=== PATIENT | female | born 1975 | race Hispanic/Latino ===

== ENCOUNTER → 2020-07-10 | Outpatient (CLI) | payer OTHER ==
[2020-07-10 15:45] LABS: BLOOD UREA NITROGEN 13 MG/DL (7-18); CREATININE FOR GFR 0.77 MG/DL (0.55-1.30); GLOMERULAR FILTRATION RATE > 60.0 (>58)
== END ==
LOC: M LAB 14:10
PROVIDERS: ATTEND Physician Assistant
DX: M54.5 Low back pain (principal)

== ENCOUNTER 2020-09-13 20:42 | Emergency (ER) | payer OTHER ==
[~2020-09-13] VITALS: Ht 157.5 cm; Wt 78.3 kg
--- OUTSIDE RECORDS SUMMARY | 2020-09-13 20:50 | CCD | Continuity of Care Document ---
Author Author Meagan AVALOS [place] Organization Unknown Address [address] [address] Phone [phone] Care Team Providers Care Concrete Mixer Truck Driver Name Role Phone Guzman Luna DO AUTM [phone] Problems Description No Information Available Social History Type Date Description Comments Sex Unknown ETOH Use Denies alcohol use Tobacco Use Start: Unknown End: Unknown Patient is a former smoker Allergies, Adverse Reactions, Alerts Description No Information Available Medications Active Medications SIG Qnty Indications Ordering Provide r Date Cyclobenzaprine HCL 10mg Tablets Take One Tablet By Mouth Three Times A Day DO Not Take If Driving Or Operating Equipment Unknown Duloxetine HCL 30mg Caps DR Part Take One Capsule By Mouth Every Day Unknown Ondansetron 4mg Tablets Dispers Dissolve One Tablet On Tongue Every 8 Hours as Needed For Migraine Or Nausea And Vomiting Unknown Verapamil HCL 80mg Tablets Take One Tablet By Mouth Twice A Day Unknown Sumatriptan Succinate 100mg Tablet s Take 1 Tablet By Mouth AT Onset Of Migraine May Repeat Dose In 1 Hour If Not Better Maximum Daily Dose 2 Tablets Daily And Max 4 Tablets Unknown Verapamil HCL 40mg Tablets Take 1 Tablet By Mouth AT Bedtime X 1 Week Then 1 Two Times A Day Unknown Pantoprazole Sodium 40mg Tablets D R Take One Tablet By Mouth Every Day Unknown History Medications Meloxicam 15mg Tablets 1 by mouth every day with food 30tabs M54.5 Tenzin Pabon MD 06/19/2020 - 08/06/2020 Meloxicam 7.5mg Tablets 1 by mouth every day with food 30tabs M54.5 Tenzin Pabon MD 05/08/2020 - 06/19/2020 Immunizations Description No Information Available Vital Signs Date Vital Result Comment 06/19/2020 10:33am Body Temperature 97.7 F 05/08/2020 8:52am Body Temperature 96.0 F Height 62 inches 5'2" Weight 171.00 lb BMI (Body Mass Index) 31.3 kg/m2 Results Test Acquired Date Facility Test Result H/L Range Note Laboratory test finding [facility] [address] [place] [address] [phone] Blood Urea Nitrogen 13 mg/dL Normal 7-18 Creatinine With GFR 07/10/2020 [facility] [address] [place] [address] [phone] - Creatinine For GFR 0.77 mg/dL Normal 0.55-1.30 Glomerular Filtration Rate > 60.0 Normal >58 1 1 Units are mL/min/1.73 m2 Chronic Kidney Disease Staging per NKF: Stage I & II GFR >=60 Normal to Mildly Decreased Stage III GFR 30-59 Moderately Decreased Stage IV GFR 15-29 Severely Decreased Stage V GFR <15 Very Little GFR Left ESRD GFR <15 on FINE GRADE BULLDOZER OPERATOR Procedures Date Code Description Status 06/28/2020 61567 Manual Therapy Each 15 Minutes C ompleted 06/28/2020 36976 Therapeutic Procedure, Each 15 M inutes Completed 06/22/2020 55290 Manual Therapy Each 15 Minutes C ompleted 06/22/2020 20826 Therapeutic Procedure, Each 15 M inutes Completed 06/22/2020 00221 Electrical Stimulati on Manual, Each 15 Min, Constant Attendance Completed 06/14/2020 69890 Manual Therapy Each 15 Minutes C ompleted 06/14/2020 77071 Therapeutic Procedure, Each 15 M inutes Completed 06/14/2020 36301 Electrical Stimulati on Manual, Each 15 Min, Constant Attendance Completed 06/01/2020 80446 Manual Therapy Each 15 Minutes C ompleted 06/01/2020 41067 Therapeutic Procedure, Each 15 M inutes Completed 06/01/2020 20432 Electrical Stimulati on Manual, Each 15 Min, Constant Attendance Completed 05/30/2020 86188 Physical Therapy Eval - Low Comp lexity Completed Medical Devices Description No Information Available Encounters Type Date Location Provider Dx Diagnosis Office Visit 08/06/2020 11:00a [place] M54.5 Low back pain M79.18 Myalgia, other site Office Visit 06/19/2020 10:15a [place] Russ M MELIDA Avalos M54.5 Low back pain M79.18 Myalgia, other site Office Visit 05/08/2020 8:30a [place] MELIDA Masters M54.5 Low back pain M79.18 Myalgia, other site Assessments Date Code Description Provider 08/06/2020 M54.5 Low back pain Russ Avalos, PA 08/06/2020 M79.18 Myalgia, other site Russ Rajat Davi madrgial, PA 06/28/2020 M54.5 Low back pain Danamarie Ortola no, MANAGER ENVIRONMENTAL 06/28/2020 M79.18 Myalgia, other site Danamarie Or tolano, MANAGER ENVIRONMENTAL 06/22/2020 M54.5 Low back pain Danamarie Ortola no, MANAGER ENVIRONMENTAL 06/22/2020 M79.18 Myalgia, other site Danamarie Or tolano, MANAGER ENVIRONMENTAL 06/19/2020 M54.5 Low back pain Russ M Bailey, PA 06/19/2020 M79.18 Myalgia, other site Russ Rajat Davi madrigal, PA 06/14/2020 M54.5 Low back pain Danamarie Ortola no, MANAGER ENVIRONMENTAL 06/01/2020 M54.5 Low back pain Jenifer Walters, MANAGER ENVIRONMENTAL 05/30/2020 M54.5 Low back pain Hillary Josephmelida , MSPT 05/08/2020 M54.5 Low back pain Russ M Bailey, PA 05/08/2020 M79.18 Myalgia, other site Russ Rajat Davi madrigal, PA Plan of Treatment 08/06/2020 - MELIDA Masters* M54.5 Low back pain* Follow up:* prn * M79.18 Myalgia, other site Functional Status Description No Information Available Mental Status Description No Information Available Referrals Refer to Reason for Referral Status Appt Date Terrance Ahmadi MD physical therapy evaluation approved [facility] ated [facility], [address] [place] [address] [phone] Terrance Ahmadi MD authorization for physical t herapy evaluation [phone] [phone] [id number], back. patient coming here. passed to PT Dept. Created [address] [place] [address], [address] [place], [place] [id number] [phone] Terrance Ahmadi MD authorization for physical t herapy Low Back. PAtient coming here. Created [address] [place] [address], [address] [place] [address] [phone]
--- OUTSIDE RECORDS SUMMARY | 2020-09-13 20:51 | CCD | Continuity of Care Document ---
Author Author Meagan WORTHINGTON [facility] Organization Unknown Address 3 [facility] 3 [place] [address] Phone [phone] Care Team Providers Care Academic Affairs Dean Name Role Phone [facility] Orthopedics - Orthopedic/Phys/Osteo AUTM [phone] Donald Shaver AUTM [phone] Problems Description No Information Available Social History Type Date Description Comments Sex Unknown Tobacco Use Start: Unknown End: Unknown Patient is a former smoker Allergies, Adverse Reactions, Alerts Description No Known Drug Allergies Medications Active Medications SIG Qnty Indications Ordering Provide r Date Protonix 40mg Tablets DR 1 by mouth every day 30tabs [facility] [address] Part 1 by mouth every day 30caps Maria Del Rosario Wor[facility]ton [facility] 0 Meloxicam 15mg Tablets 1 by mouth every day [facility] Orthopedics Verapamil HCL 80mg Tablets 1 by mouth bid Donald Shaver History Medications Omeprazole 40mg Capsules DR 1 by mouth every day 30caps Maria Del Rosario [place]ton FNP- 0 - 05/21/[address] 1 by mouth every day caps Maria Del Rosario Worthington [facility] 0 - 05/21/2020 Cyclobenzaprine HCL 10mg Tablets take one tablet by mouth three times a day. do not take if driving or operating equipment 30tabs Maria Del Rosario [place] FNP- 0 - 04/26/2020 Immunizations Description No Information Available Vital Signs Date Vital Result Comment 07/02/2020 10:49am BP Systolic 136 mmHg BP Diastolic 86 mmHg Body Temperature 97.7 F Heart Rate 98 /min Respiratory Rate 18 /min Height 62 inches 5'2" Weight 168.00 lb [place] Body Weight 110 lb BMI (Body Mass Index) 30.7 kg/m2 O2 % BldC Oximetry 98 % 05/21/2020 12:13pm BP Systolic 146 mmHg BP Diastolic 90 mmHg Body Temperature 98.4 F Heart Rate 90 /min Respiratory Rate 16 /min Height 62 inches 5'2" Weight 171.00 lb [place] Body Weight 110 lb BMI (Body Mass Index) 31.3 kg/m2 O2 % BldC Oximetry 98 % Results Test Acquired Date Facility Test Result H/L Range Note Laboratory test finding 07/10/[address] [facility] (Interface) [phone] Blood Urea Nitrogen 13 mg/dL Normal 7-18 Creatinine With GFR 07/10/2020 [facility] (I nterface) [phone] Creatinine For GFR 0.77 mg/dL Normal 0.55-1.30 Glomerular Filtration Rate > 60.0 Normal >58 1 1 Units are mL/min/1.73 m2 Chronic Kidney Disease Staging per NKF: Stage I & II GFR >=60 Normal to Mildly Decreased Stage III GFR 30-59 Moderately Decreased Stage IV GFR 15-29 Severely Decreased Stage V GFR <15 Very Little GFR Left ESRD GFR <15 on APPLIANCE SERVICER Procedures Description No Information Available Medical Devices Description No Information Available Encounters Type Date Location Provider Dx Diagnosis Office Visit 07/02/2020 10:40a [place] [facility] Maria Del Rosario Worthington FNP-B C R03.0 Elevated blood-pressure reading, w/o diagnosis of htn G47.00 Insomnia, unspecified F32.9 Major depressive disorder, s ghazal episode, unspecified F41.9 Anxiety disorder, unspecifie d G43.909 Migraine, unsp, not intracta ble, without status migrainosus M54.5 Low back pain K21.9 Gastro-esophageal reflux dis ease without esophagitis R10.13 Epigastric pain Office Visit 05/21/2020 10:45a [place] [facility] Maria Del Rosario Worthington FNP-B C G43.909 Migraine, unsp, not intractable, without status migrainosus F32.9 Major depressive disorder, s ghazal episode, unspecified F41.9 Anxiety disorder, unspecifie d M54.5 Low back pain R03.0 Elevated blood-pressure read ing, w/o diagnosis of htn G47.00 Insomnia, unspecified Office Visit 04/26/2020 10:45a [place] [facility] Rounds, Maria Del Rosario EarlCHINMAYP-B C G43.909 Migraine, unsp, not intractable, without status migrainosus F32.9 Major depressive disorder, s ghazal episode, unspecified F41.9 Anxiety disorder, unspecifie d M54.5 Low back pain Office Visit 04/13/2020 11:30a [place] [facility] Rounds, Maria Del Rosario EarlCHINMAYP-B C G43.909 Migraine, unsp, not intractable, without status migrainosus F32.9 Major depressive disorder, s ghazal episode, unspecified F41.9 Anxiety disorder, unspecifie d M54.5 Low back pain R03.0 Elevated blood-pressure read ing, w/o diagnosis of htn Assessments Date Code Description Provider 07/02/2020 R03.0 Elevated blood-press ure reading, without diagnosis of hypertension Maria Del Rosario Worthington [facility] 07/02/2020 G47.00 Insomnia, unspecified ElinYon karthik Earl [facility] 07/02/2020 F32.9 Major depressive disorder, singl e episode, unspecified Elin Maria Del Rosario Earl [facility] 07/02/2020 F41.9 Anxiety disorder, unspecified Ro unds Maria Del Rosario Earl [facility] 07/02/2020 G43.909 Migraine, unspecifie d, not intractable, without status migrainosus Elin Maria Del Rosario Rajat [facility] 07/02/2020 M54.5 Low back pain Elin Maria Del Rosario Earl [facility] 07/02/2020 K21.9 Gastro-esophageal reflux disease without esophagitis Elin Maria Del Rosario M, [facility] 07/02/2020 R10.13 Epigastric pain Elin Maria Del Rosario Rajat [facility] 05/21/2020 G43.909 Migraine, unspecifie d, not intractable, without status migrainosus Elin Maria Del Rosario Rajat [facility] 05/21/2020 F32.9 Major depressive disorder, singl e episode, unspecified Elin Maria Del Rosario Earl, [facility] 05/21/2020 F41.9 Anxiety disorder, unspecified Ro unds, Maria Del Rosario Earl, [facility] 05/21/2020 M54.5 Low back pain Maria Del Rosario Worthington, [facility] 05/21/2020 R03.0 Elevated blood-press ure reading, without diagnosis of hypertension Maria Del Rosario Wor[place], [facility] 05/21/2020 G47.00 Insomnia, unspecified Yon Worthington, [facility] 04/26/2020 G43.909 Migraine, unspecifie d, not intractable, without status migrainosus Maria Del Rosario Wor[place]ton, [facility] 04/26/2020 F32.9 Major depressive disorder, singl e episode, unspecified Maria Del Rosario Wor[place]ton, [facility] 04/26/2020 F41.9 Anxiety disorder, unspecified Ro unds, Maria Del Rosario Earl, [facility] 04/26/2020 M54.5 Low back pain Maria Del Rosario Worthington [facility] 04/13/2020 G43.909 Migraine, unspecifie d, not intractable, without status migrainosus Maria Del Rosario Worthington [facility] 04/13/2020 F32.9 Major depressive disorder, singl e episode, unspecified Maria Del Rosario Worthington [facility] 04/13/2020 F41.9 Anxiety disorder, unspecified Ro unds, Maria Del Rosario Earl, [facility] 04/13/2020 M54.5 Low back pain Maria Del Rosario Wor[place], [facility] 04/13/2020 R03.0 Elevated blood-press ure reading, without diagnosis of hypertension Maria Del Rosario Worthington [facility] Plan of Treatment Future Appointment(s):* 10/08/2020 1:00 pm - Maria Del Rosario Worthington [facility]- at [place] [facility] Functional Status Description No Information Available Mental Status Description No Information Available Referrals Refer to Dr Reason for Referral Status Appt Date Rogelio Gee M.D. epigastric discomfort and GERD Sent [address] [facility] [address] [place], [place] [address] [phone] Sugar Shaver M.D. migraines Sent 05/10/2020 [facility] Neurology [address] [place] [address] [phone] [facility] Orthopedics persistent back pain Sent [address] [facility] [address] [place] [address] [phone] [facility] anxiety and depression Sent [address] [place], [place] [address] [phone]
--- OUTSIDE RECORDS SUMMARY | 2020-09-13 20:51 | CCD | Continuity of Care Document ---
Author Author Meagan REED Organization Unknown Address [address] [place] [address] Phone [phone] Care Team Providers Care Laborer Carpentry Dock Name Role Phone Guzman Luna DO AUTM [phone] Problems Description No Information Available Social History Type Date Description Comments Sex Unknown ETOH Use Denies alcohol use Tobacco Use Start: Unknown End: Unknown Patient is a former smoker Allergies, Adverse Reactions, Alerts Description No Information Available Medications Active Medications SIG Qnty Indications Ordering Provide r Date Meloxicam 15mg Tablets 1 by mouth every day with food 30tabs M54.5 Tenzin Pabon MD 06/19/2020 Cyclobenzaprine HCL 10mg Tablets Take One Tablet By Mouth Three Times A Day DO Not Take If Driving Or Operating Equipment Unknown Duloxetine HCL 30mg Caps DR Part Take One Capsule By Mouth Every Day Unknown History Medications Meloxicam 7.5mg Tablets 1 by mouth every day with food 30tabs M54.5 Tenzin Pabon MD 05/08/2020 - 06/19/2020 Immunizations Description No Information Available Vital Signs Date Vital Result Comment 06/19/2020 10:33am Body Temperature 97.7 F 05/08/2020 8:52am Body Temperature 96.0 F Height 62 inches 5'2" Weight 171.00 lb BMI (Body Mass Index) 31.3 kg/m2 Results Description No Information Available Procedures Date Code Description Status 06/28/2020 68998 Manual Therapy Each 15 Minutes C ompleted 06/28/2020 56302 Therapeutic Procedure, Each 15 M inutes Completed 06/22/2020 50897 Manual Therapy Each 15 Minutes C ompleted 06/22/2020 38512 Therapeutic Procedure, Each 15 M inutes Completed 06/22/2020 00012 Electrical Stimulati on Manual, Each 15 Min, Constant Attendance Completed 06/14/2020 93127 Manual Therapy Each 15 Minutes C ompleted 06/14/2020 05852 Therapeutic Procedure, Each 15 M inutes Completed 06/14/2020 73592 Electrical Stimulati on Manual, Each 15 Min, Constant Attendance Completed 06/01/2020 98880 Manual Therapy Each 15 Minutes C ompleted 06/01/2020 77064 Therapeutic Procedure, Each 15 M inutes Completed 06/01/2020 56930 Electrical Stimulati on Manual, Each 15 Min, Constant Attendance Completed 05/30/2020 99186 Physical Therapy Eval - Low Comp lexity Completed Medical Devices Description No Information Available Encounters Type Date Location Provider Dx Diagnosis Office Visit 06/19/2020 10:[place]a [place] M54.5 Low back pain M79.18 Myalgia, other site Office Visit 05/08/2020 8:30a [place] M54.5 Low back pain M79.18 Myalgia, other site Assessments Date Code Description Provider 06/28/2020 M54.5 Low back pain Danamarie Ortola no, LIGHTING DESIGNER 06/28/2020 M79.18 Myalgia, other site Danamarie Or tolano, LIGHTING DESIGNER 06/22/2020 M54.5 Low back pain Danamarie Ortola no, LIGHTING DESIGNER 06/22/2020 M79.18 Myalgia, other site Danamarie Or tolano, LIGHTING DESIGNER 06/19/2020 M54.5 Low back pain SHERIE Masters 06/19/2020 M79.18 Myalgia, other site Russ madrigal PA 06/14/2020 M54.5 Low back pain Danamarie Ortola no, LIGHTING DESIGNER 06/01/2020 M54.5 Low back pain Jenifer Romeo, LIGHTING DESIGNER 05/30/2020 M54.5 Low back pain Hillary Rangel , MSPT 05/08/2020 M54.5 Low back pain SHERIE Masters 05/08/2020 M79.18 Myalgia, other site Russ madrigal PA Plan of Treatment Future Appointment(s):* 08/06/2020 11:00 am - SHERIE Masters at [place] 06/19/2020 - SHERIE Masters* M54.5 Low back pain* New Medication:* Meloxicam 15 mg - 1 by mouth every day with food * New Labs:* Blood Urea Nitrogen, Ordered: 06/19/20 * Creatinine With GFR, Ordered: 06/19/20 * Follow up:* [facility]med recheck * M79.18 Myalgia, other site Functional Status Description No Information Available Mental Status Description No Information Available Referrals Refer to Reason for Referral Status Appt Date Terrance Ahmadi MD authorization for physical t herapy evaluation [phone], back. patient coming here. passed to PT Dept. Created [address] [place] [address] [phone] Terrance Ahmadi MD authorization for physical t herapy Low Back. PAtient coming here. Created [address] [place] [address] [phone]
--- OUTSIDE RECORDS SUMMARY | 2020-09-13 20:51 | CCD | Continuity of Care Document ---
Author Author Meagan CANDELARIO ID Organization Unknown Address [address] [place] [address] Phone [phone] Care Team Providers Care District Plant Engineer Name Role Phone Guzman Luna DO AUTM [phone] Problems Description No Information Available Social History [...] Information Available Procedures Date Code Description Status 06/14/2020 33685 Manual Therapy Each 15 Minutes C ompleted 06/14/2020 74437 Therapeutic Procedure, Each 15 M inutes Completed 06/14/2020 77941 Electrical Stimulati on Manual, Each 15 Min, Constant Attendance Completed 06/01/2020 94457 Manual Therapy Each 15 Minutes C ompleted 06/01/2020 37985 Therapeutic Procedure, Each 15 M inutes Completed 06/01/2020 44366 Electrical Stimulati on Manual, Each 15 Min, Constant Attendance Completed 05/30/2020 42610 Physical Therapy Eval - Low Comp lexity Completed Medical Devices Description No Information Available Encounters Type Date Location Provider Dx Diagnosis Office Visit 06/19/2020 10:15a [place] SHERIE Masters M54.5 Low back pain M79.18 Myalgia, other site Office Visit 05/08/2020 8:30a [place] SHERIE Masters M54.5 Low back pain M79.18 Myalgia, other site Assessments Date Code Description Provider 06/19/2020 M54.5 Low back pain SHERIE Masters 06/19/2020 M79.18 Myalgia, other site SHERIE Cano 06/14/2020 M54.5 Low back pain Brodie oates, PUBLISHER ASSISTANT 06/01/2020 M54.5 Low back pain Jenifer Byrnese, PUBLISHER ASSISTANT 05/30/2020 M54.5 Low back pain Hillary MJill Rangel , MSPT 05/08/2020 M54.5 Low back pain SHERIE Masters 05/08/2020 M79.18 Myalgia, other site SHERIE Cano Plan of Treatment Future Appointment(s):* 08/06/2020 11:00 am - SHERIE Masters at [place] * 06/22/2020 11:00 am - Brodie Sharp PTA at Physical Therapy 06/19/2020 - SHERIE Masters* M54.5 Low back pain* New Medication:* Meloxicam 15 mg - 1 by mouth every day with food * New Labs:* Blood Urea Nitrogen, Ordered: 06/19/20 * Creatinine With GFR, Ordered: 06/19/20 * Follow up:* in 6 weeks with [facility] for back/med recheck * M79.18 Myalgia, other site Functional Status Description No Information Available Mental Status Description No Information Available Referrals Refer to Dr Reason for Referral Status Appt Date Terrance Ahmadi MD authorization for physical t herapy evaluation [phone], back. patient coming here. passed to PT Dept. AC Created [address] [place] [address], [address] [place] [address] [phone] Terrance Ahmadi MD authorization for physical t herapy Low Back. PAtient coming here. AC Created [address] [place] [address], [address] [address] [phone]
--- OUTSIDE RECORDS SUMMARY | 2020-09-13 20:51 | CCD | Continuity of Care Document ---
Author Author Meagan CANDELARIO [place] Organization Unknown Address [address] [address] Phone [phone] Care Team Providers Care Candle Molder Name Role Phone Guzman Luna DO AUTM [phone] Problems Description No Information Available Social History [...] H/L Range Note Laboratory test finding 07[facility] [address] [place] [address] [phone] Blood Urea Nitrogen 13 mg/dL Normal 7-18 Creatinine With GFR 07/10/2020 [facility] [address] [place] [address] [phone] Creatinine For GFR 0.77 mg/dL Normal 0.55-1.30 Glomerular Filtration Rate > 60.0 Normal >58 1 1 Units are mL/min/1.73 m2 Chronic Kidney Disease Staging per NKF: Stage I & II GFR >=60 Normal to Mildly Decreased Stage III GFR 30-59 Moderately Decreased Stage IV GFR 15-29 Severely Decreased Stage V GFR <15 Very Little GFR Left ESRD GFR <15 on ASTROPHYSICS TEACHER Procedures Date Code Description Status 06/28/2020 60464 Manual Therapy Each 15 Minutes C ompleted 06/28/2020 58780 Therapeutic Procedure, Each 15 M inutes Completed 06/22/2020 40910 Manual Therapy Each 15 Minutes C ompleted 06/22/2020 13543 Therapeutic Procedure, Each 15 M inutes Completed 06/22/2020 97557 Electrical Stimulati on Manual, Each 15 Min, Constant Attendance Completed 06/14/2020 25034 Manual Therapy Each 15 Minutes C ompleted 06/14/2020 62716 Therapeutic Procedure, Each 15 M inutes Completed 06/14/2020 39254 Electrical Stimulati on Manual, Each 15 Min, Constant Attendance Completed 06/01/2020 47429 Manual Therapy Each 15 Minutes C ompleted 06/01/2020 44488 Therapeutic Procedure, Each 15 M inutes Completed 06/01/2020 61883 Electrical Stimulati on Manual, Each 15 Min, Constant Attendance Completed 05/30/2020 61461 Physical Therapy Eval - Low Comp lexity Completed Medical Devices Description No Information Available Encounters Type Date Location Provider Dx Diagnosis Office Visit 06/19/2020 10:15a [place] SHERIE Masters M54.5 Low back pain M79.18 Myalgia, other site Office Visit 05/08/2020 8:30a [place] SHERIE Masters M54.5 Low back pain M79.18 Myalgia, other site Assessments Date Code Description Provider 06/28/2020 M54.5 Low back pain Danamarie Ortola no, SITE SUPERVISING TECHNICAL OPERATOR 06/28/2020 M79.18 Myalgia, other site Danamarie Or tolano, SITE SUPERVISING TECHNICAL OPERATOR 06/22/2020 M54.5 Low back pain Danamarie Ortola no, SITE SUPERVISING TECHNICAL OPERATOR 06/22/2020 M79.18 Myalgia, other site Danamarie Or tolano, SITE SUPERVISING TECHNICAL OPERATOR 06/19/2020 M54.5 Low back pain SHERIE Masters 06/19/2020 M79.18 Myalgia, other site SHERIE Cano 06/14/2020 M54.5 Low back pain Brodie oates, SITE SUPERVISING TECHNICAL OPERATOR 06/01/2020 M54.5 Low back pain Jenifer Walters, SITE SUPERVISING TECHNICAL OPERATOR 05/30/2020 M54.5 Low back pain Hillary Rangel , MSPT 05/08/2020 M54.5 Low back pain SHERIE Masters 05/08/2020 M79.18 Myalgia, other site SHERIE Cano Plan of Treatment Future Appointment(s):* 08/06/2020 11:00 am - SHERIE Masters at [place] Functional Status Description No Information Available Mental Status Description No Information Available Referrals Refer to Dr Reason for Referral Status Appt Date Terrance Ahmadi MD physical therapy evaluation approved nlg Cre ated [address] [place] [address] [phone] Terrance Ahmadi MD authorization for physical t herapy evaluation [phone], back. patient coming here. passed to PT Dept. AC Created [address] [place] [address] [phone] Terrance Ahmadi MD authorization for physical t herapy Low Back. PAtient coming here. AC Created [address] [place] [address] [phone]
--- OUTSIDE RECORDS SUMMARY | 2020-09-13 20:51 | CCD | Continuity of Care Document ---
Author Author Meagan [facility] Organization Unknown Address 3 [facility] [address] [place] [address] Phone [phone] Care Team Providers Care Forensic Engineer Name Role Phone [facility] - Orthopedic/Phys/Osteo AUTM [phone] Donald Shaver AUTM [phone] Problems Description No Information Available Social History Type Date Description Comments Sex Unknown Tobacco Use Start: Unknown End: Unknown Patient is a former smoker Allergies, Adverse Reactions, Alerts Description No Known Drug Allergies Medications Active Medications SIG Qnty Indications Ordering Provide r Date Protonix 40mg Tablets DR 1 by mouth every day 30tabs Maria Del [facility]ario [place] [facility] [address] Caps [address] Part 1 by mouth every day 30caps [facility] Meloxicam 15mg Tablets 1 by mouth every day [facility] Verapamil HCL 80mg Tablets 1 by mouth bid Donald Shaver History Medications Omeprazole 40mg Capsules DR 1 by mouth every day 30caps Maria Del Rosario Wor[place]ton FNP- 0 - 05/21/[address] 1 by mouth every day caps Maria Del Rosario Worthington [facility] 0 - 05/21/2020 Cyclobenzaprine HCL 10mg Tablets [...] Height 62 inches 5'2" Weight 168.00 lb Stites Body Weight 110 lb BMI (Body Mass Index) 30.7 kg/m2 O2 % BldC Oximetry 98 % 05/21/2020 12:13pm BP Systolic 146 mmHg BP Diastolic 90 mmHg Body Temperature 98.4 F Heart Rate 90 /min Respiratory Rate 16 /min Height 62 inches 5'2" Weight 171.00 lb Stites Body Weight 110 lb BMI (Body Mass Index) 31.3 kg/m2 O2 % BldC Oximetry 98 % Results Description No Information Available Procedures Description No Information Available Medical Devices Description No Information Available Encounters Type Date Location Provider Dx Diagnosis Office Visit 07/02/2020 10:40a [place] Office RoundsMaria Del Rosario FNP-B C R03.0 Elevated blood-pressure reading, w/o diagnosis of htn G47.00 Insomnia, unspecified F32.9 Major depressive disorder, s ghazal episode, unspecified F41.9 Anxiety disorder, unspecifie d G43.909 Migraine, unsp, not intracta ble, without status migrainosus M54.5 Low back pain Office Visit 05/21/2020 10:45a [place] Office RoundsMaria Del Rosario FNP-B C G43.909 Migraine, unsp, not intractable, without status migrainosus F32.9 Major depressive disorder, s ghazal episode, unspecified F41.9 Anxiety disorder, unspecifie d M54.5 Low back pain R03.0 Elevated blood-pressure read ing, w/o diagnosis of htn G47.00 Insomnia, unspecified Office Visit 04/26/2020 10:45a [place] Office RoundsMaria Del Rosario FNP-B C G43.909 Migraine, unsp, not intractable, without status migrainosus F32.9 Major depressive disorder, s ghazal episode, unspecified F41.9 Anxiety disorder, unspecifie d M54.5 Low back pain Office Visit 04/13/2020 11:30a [place] Office RoundsMaria Del Rosario FNP-B C G43.909 Migraine, unsp, not intractable, without status migrainosus F32.9 Major depressive disorder, s ghazal episode, unspecified F41.9 Anxiety disorder, unspecifie d M54.5 Low back pain R03.0 Elevated blood-pressure read ing, w/o diagnosis of htn Assessments Date Code Description Provider 07/02/2020 R03.0 Elevated blood-press ure reading, without diagnosis of hypertension Maria Del Rosario [place], [facility] 07/02/2020 G47.00 Insomnia, unspecified Rounds, Yon Earl, [facility] 07/02/2020 F32.9 Major depressive disorder, singl e episode, unspecified Maria Del Rosario [place], [facility] 07/02/2020 F41.9 Anxiety disorder, unspecified Ro unds, Maria Del Rosario Earl, [facility] 07/02/2020 G43.909 Migraine, unspecifie d, not intractable, without status migrainosus Maria Del Rosario [place], [facility] 07/02/2020 M54.5 Low back pain Elin, Maria Del Rosario Earl, [facility] 05/21/2020 G43.909 Migraine, unspecifie d, not intractable, without status migrainosus Maria Del Rosario [place], [facility] 05/21/2020 F32.9 Major depressive disorder, singl e episode, unspecified Maria Del Rosario [place], [facility] 05/21/2020 F41.9 Anxiety disorder, unspecified Ro unds, Maria Del Rosario Earl, [facility] 05/21/2020 M54.5 Low back pain RoundsMaria Del Rosario, [facility] 05/21/2020 R03.0 Elevated blood-press ure reading, without diagnosis of hypertension Maria Del Rosario [place], [facility] 05/21/2020 G47.00 Insomnia, unspecified Elin, Yon Earl, [facility] 04/26/2020 G43.909 Migraine, unspecifie d, not intractable, without status migrainosus Maria Del Rosario [place], [facility] 04/26/2020 F32.9 Major depressive disorder, singl e episode, unspecified Elin, Maria Del Rosario Earl, [facility] 04/26/2020 F41.9 Anxiety disorder, unspecified Ro unds, Maria Del Rosario Earl, [facility] 04/26/2020 M54.5 Low back pain Rounds, Maria Del Rosario Earl, [facility] 04/13/2020 G43.909 Migraine, unspecifie d, not intractable, without status migrainosus Maria Del Rosario [place] FNP-BC 04/13/2020 F32.9 Major depressive disorder, singl e episode, unspecified Maria Del Rosario Wor[place] FNP-BC 04/13/2020 F41.9 Anxiety disorder, unspecified Ro undMaria Del Rosario olivas FNP-BC 04/13/2020 M54.5 Low back pain Maria Del Rosario Worthing[place] FNP-BC 04/13/2020 R03.0 Elevated blood-press ure reading, without diagnosis of hypertension Maria Del Rosario [place] FNP-BC Plan of Treatment Future Appointment(s):* 10/08/2020 1:00 pm - Maria Del Rosario [place] FNP-BC at [facility] Functional Status Description No Information Available Mental Status Description No Information Available Referrals Refer to Reason for Referral Status Appt Date Sugar Shaver M.D. migraines Sent 05/10/2020 [facility] [address] [place] [address] [phone] [facility] Orth[facility] persistent back pain Sent [address] [place] [address] [phone] [facility] Health anxiety and depression Sent [facility] [place] [address] [phone]
--- OUTSIDE RECORDS SUMMARY | 2020-09-13 20:51 | CCD | Continuity of Care Document ---
Author Author Meagan [facility] Organization Unknown Address [address] [place] [address], [facility] [address] [place] [address] Phone [phone] Care Team Providers Care Exhibit Carpenter Name Role Phone Guzman LunaM [phone] Problems Description No Information Available Social History Type Date Description Comments Sex Unknown ETOH Use Denies alcohol use Tobacco Use Start: Unknown End: Unknown Patient is a former smoker Allergies, Adverse Reactions, Alerts Description No Information Available Medications Active Medications SIG Qnty Indications Ordering Provide r Date Meloxicam 7.5mg Tablets 1 by mouth every day with food 30tabs M54.5 Tenzin Pabon MD 05/08/2020 Cyclobenzaprine HCL 10mg Tablets Take One Tablet By Mouth Three Times A Day DO Not Take If Driving Or Operating Equipment Unknown Duloxetine HCL 30mg Caps DR Part Take One Capsule By Mouth Every Day Unknown Immunizations Description No Information Available Vital Signs Date Vital Result Comment 05/08/2020 8:52am Body Temperature 96.0 F Height 62 inches 5'2" Weight 171.00 lb BMI (Body Mass Index) 31.3 kg/m2 Results Description No Information Available Procedures Date Code Description Status 06/14/2020 11040 Manual Therapy Each 15 Minutes C ompleted 06/14/2020 41946 Therapeutic Procedure, Each 15 M inutes Completed 06/14/2020 17118 Electrical Stimulati on Manual, Each 15 Min, Constant Attendance Completed 06/01/2020 95590 Manual Therapy Each 15 Minutes C ompleted 06/01/2020 79736 Therapeutic Procedure, Each 15 M inutes Completed 06/01/2020 03731 Electrical Stimulati on Manual, Each 15 Min, Constant Attendance Completed 05/30/2020 08604 Physical Therapy Eval - Low Comp lexity Completed Medical Devices Description No Information Available Encounters Type Date Location Provider Dx Diagnosis Office Visit 05/08/2020 8:30a [place] SHERIE Masters M54.5 Low back pain M79.18 Myalgia, other site Assessments Date Code Description Provider 06/14/2020 M54.5 Low back pain Brodie oates, BUSINESS SUPPORT MANAGER 06/01/2020 M54.5 Low back pain Jenifer Walters, BUSINESS SUPPORT MANAGER 05/30/2020 M54.5 Low back pain Hillary Rangel , MSPT 05/08/2020 M54.5 Low back pain SHERIE Masters 05/08/2020 M79.18 Myalgia, other site SHERIE Cano Plan of Treatment Future Appointment(s):* 06/22/2020 11:00 am - Brodie Sharp PTA at Physical Therapy * 06/19/2020 10:15 am - SHERIE Masters at [place] Functional Status Description No Information Available Mental Status Description No Information Available Referrals Refer to Dr Reason for Referral Status Appt Date Terrance Ahmadi MD authorization for physical t herapy evaluation [phone], back. patient coming here. passed to PT Dept. Created [address] [place] [address] [phone] Terrance Ahmadi MD authorization for physical t herapy Low Back. PAtient coming here. Created [address] [place] [address] [phone]
--- OUTSIDE RECORDS SUMMARY | 2020-09-13 20:51 | CCD | Continuity of Care Document ---
Author Author Meagan REED Organization Unknown Address [address] [place] [address] Phone [phone] Care Team Providers Care Fulling Mill Operator Name Role Phone Guzman LunaM [phone] Problems Description No Information Available Social History [...] Information Available Procedures Date Code Description Status 06/22/2020 70214 Manual Therapy Each 15 Minutes C ompleted 06/22/2020 98987 Therapeutic Procedure, Each 15 M inutes Completed 06/22/2020 22569 Electrical Stimulati on Manual, Each 15 Min, Constant Attendance Completed 06/14/2020 16020 Manual Therapy Each 15 Minutes C ompleted 06/14/2020 69658 Therapeutic Procedure, Each 15 M inutes Completed 06/14/2020 68336 Electrical Stimulati on Manual, Each 15 Min, Constant Attendance Completed 06/01/2020 64672 Manual Therapy Each 15 Minutes C ompleted 06/01/2020 67467 Therapeutic Procedure, Each 15 M inutes Completed 06/01/2020 81547 Electrical Stimulati on Manual, Each 15 Min, Constant Attendance Completed 05/30/2020 77746 Physical Therapy Eval - Low Comp lexity Completed Medical Devices Description No Information Available Encounters Type Date Location Provider Dx Diagnosis Office Visit 06/19/2020 10:15a [place] SHERIE Masters M54.5 Low back pain M79.18 Myalgia, other site Office Visit 05/08/2020 8:30a [place] SHERIE Masters M54.5 Low back pain M79.18 Myalgia, other site Assessments Date Code Description Provider 06/19/2020 M54.5 Low back pain SHERIE Masters 06/19/2020 M79.18 Myalgia, other site SHERIE Cano 06/14/2020 M54.5 Low back pain Brodie Nichols no, TYPISTS SUPERVISOR 06/01/2020 M54.5 Low back pain Jenifer Walters, TYPISTS SUPERVISOR 05/30/2020 M54.5 Low back pain Hillary Rangel , MSPT 05/08/2020 M54.5 Low back pain SHERIE Masters 05/08/2020 M79.18 Myalgia, other site SHERIE Cano Plan of Treatment Future Appointment(s):* 08/06/2020 11:00 am - SHERIE Masters at [place] Functional Status Description No Information Available Mental Status Description No Information Available Referrals Refer to Dr Reason for Referral Status Appt Date Terrance Ahmadi MD authorization for physical t herapy evaluation [phone], back. patient coming here. passed to PT Dept. AC Created [address] [place] [address], [address] [place] [address] [phone] Terrance Ahmadi MD authorization for physical t herapy Low Back. PAtient coming here. AC Created [address] [place] [address], [address] [place] [id number] [phone]
--- OUTSIDE RECORDS SUMMARY | 2020-09-13 20:51 | CCD | Continuity of Care Document ---
Author Author Meagan [facility] Organization Unknown Address [address] [place] [address] Phone [phone] Care Team Providers Care Linux Network Systems Administrator Name Role Phone Guzman Luna DO AUTM [phone] Problems Description No Information Available Social History [...] Available Procedures Date Code Description Status 06/14/2020 76040 Manual Therapy Each 15 Minutes C ompleted 06/14/2020 22666 Therapeutic Procedure, Each 15 M inutes Completed 06/14/2020 64488 Electrical Stimulati on Manual, Each 15 Min, Constant Attendance Completed 06/01/2020 14434 Manual Therapy Each 15 Minutes C ompleted 06/01/2020 94952 Therapeutic Procedure, Each 15 M inutes Completed 06/01/2020 65470 Electrical Stimulati on Manual, Each 15 Min, Constant Attendance Completed 05/30/2020 26708 Physical Therapy Eval - Low Comp lexity Completed Medical Devices Description No Information Available Encounters Type Date Location Provider Dx Diagnosis Office Visit 05/08/2020 8:30a [place] MELIDA Masters M54.5 Low back pain M79.18 Myalgia, other site Assessments Date Code Description Provider 06/14/2020 M54.5 Low back pain Brodie oates, NURSE ANESTHESIA PROGRAM DIRECTOR 06/01/2020 M54.5 Low back pain Jenifer Walters, NURSE ANESTHESIA PROGRAM DIRECTOR 05/30/2020 M54.5 Low back pain Hillary Josephmelida , MSPT 05/08/2020 M54.5 Low back pain MELIDA Masters 05/08/2020 M79.18 Myalgia, other site MELIDA Cano Plan of Treatment Future Appointment(s):* 06/22/2020 11:00 am - Brodie Sharp PTA at Physical Therapy * 06/19/2020 10:15 am - MELIDA Masters at [place] Functional Status Description No Information Available Mental Status Description No Information Available Referrals Refer to Dr Reason for Referral Status Appt Date Terrance Ahmadi MD authorization for physical t herapy evaluation [phone], back. patient coming here. passed to PT Dept. Created [address] [place] [address] [phone] Terrance Ahmadi MD authorization for physical t herapy Low Back. PAtient coming here. Created [address] [place] [address] [phone]
--- OUTSIDE RECORDS SUMMARY | 2020-09-13 20:51 | CCD | Continuity of Care Document ---
Author Author Meagan REED Organization Unknown Address [address] [place] [address] Phone [phone] Care Team Providers Care Used Car Sales Supervisor Name Role Phone Guzman LunaM [phone] Problems Description No Information Available Social History [...] Available Procedures Date Code Description Status 06/14/2020 20240 Manual Therapy Each 15 Minutes C ompleted 06/14/2020 66010 Therapeutic Procedure, Each 15 M inutes Completed 06/14/2020 00808 Electrical Stimulati on Manual, Each 15 Min, Constant Attendance Completed 06/01/2020 66290 Manual Therapy Each 15 Minutes C ompleted 06/01/2020 06789 Therapeutic Procedure, Each 15 M inutes Completed 06/01/2020 17983 Electrical Stimulati on Manual, Each 15 Min, Constant Attendance Completed 05/30/2020 21841 Physical Therapy Eval - Low Comp lexity Completed Medical Devices Description No Information Available Encounters Type Date Location Provider Dx Diagnosis Office Visit 05/08/2020 8:30a [place] SHERIE Masters M54.5 Low back pain M79.18 Myalgia, other site Assessments Date Code Description Provider 06/14/2020 M54.5 Low back pain Brodie oates, SENIOR BILLING CONSULTANT 06/01/2020 M54.5 Low back pain Jenifer Walters, SENIOR BILLING CONSULTANT 05/30/2020 M54.5 Low back pain Hillary Rangel , MSPT 05/08/2020 M54.5 Low back pain SHERIE Masters 05/08/2020 M79.18 Myalgia, other site SHERIE Cano Plan of Treatment Future Appointment(s):* 06/22/2020 11:00 am - Brodie Reed PTA at Physical Therapy * 06/19/2020 10:15 am - SHERIE Masters at [place] Functional Status Description No Information Available Mental Status Description No Information Available Referrals Refer to Dr Reason for Referral Status Appt Date Terrance Ahmadi MD authorization for physical t herapy evaluation [phone], back. patient coming here. passed to PT Dept. AC Created [address] [place] [address] [phone] Terrance Ahmadi MD authorization for physical t herapy Low Back. PAtient coming here. AC Created [address] [place] [address] [phone]
--- OUTSIDE RECORDS SUMMARY | 2020-09-13 20:51 | CCD | Continuity of Care Document ---
Author Author Meagan [place] Organization Unknown Address [address] [address] Phone [phone] Care Team Providers Care Scanning Coordinator Name Role Phone Guzman Luna DO AUTM [phone] Problems Description No Information Available Social History [...] H/L Range Note Laboratory test finding 07/10/[facility] [address] [place] [address] [phone] Blood Urea Nitrogen 13 mg/dL Normal 7-18 Creatinine With GFR 07/10/2020 [facility] [address] [place] [address] [phone] Creatinine For GFR 0.77 mg/dL Normal 0.55-1.30 Glomerular Filtration Rate > 60.0 Normal >58 1 1 Units are mL/min/1.73 m2 Chronic Kidney Disease Staging per NKF: Stage I & II GFR >=60 Normal to Mildly Decreased Stage III GFR 30-59 Moderately Decreased Stage IV GFR 15-29 Severely Decreased Stage V GFR <15 Very Little GFR Left ESRD GFR <15 on AIRPLANE GASTANK LINER ASSEMBLER Procedures Date Code Description Status 06/28/2020 43732 Manual Therapy Each 15 Minutes C ompleted 06/28/2020 99392 Therapeutic Procedure, Each 15 M inutes Completed 06/22/2020 74429 Manual Therapy Each 15 Minutes C ompleted 06/22/2020 55291 Therapeutic Procedure, Each 15 M inutes Completed 06/22/2020 89746 Electrical Stimulati on Manual, Each 15 Min, Constant Attendance Completed 06/14/2020 82380 Manual Therapy Each 15 Minutes C ompleted 06/14/2020 66616 Therapeutic Procedure, Each 15 M inutes Completed 06/14/2020 96700 Electrical Stimulati on Manual, Each 15 Min, Constant Attendance Completed 06/01/2020 77636 Manual Therapy Each 15 Minutes C ompleted 06/01/2020 19391 Therapeutic Procedure, Each 15 M inutes Completed 06/01/2020 11524 Electrical Stimulati on Manual, Each 15 Min, Constant Attendance Completed 05/30/2020 92876 Physical Therapy Eval - Low Comp lexity Completed Medical Devices Description No Information Available Encounters Type Date Location Provider Dx Diagnosis Office Visit 06/19/2020 10:15a [place] MELIDA Masters M54.5 Low back pain M79.18 Myalgia, other site Office Visit 05/08/2020 8:30a [place] MELIDA Masters M54.5 Low back pain M79.18 Myalgia, other site Assessments Date Code Description Provider 06/28/2020 M54.5 Low back pain Danamarie Ortola no, [place] 06/28/2020 M79.18 Myalgia, other site Danamarie Or tolano, [place] 06/22/2020 M54.5 Low back pain Danamarie Ortola no, [place] 06/22/2020 M79.18 Myalgia, other site Danamarie Or tolano, [place] 06/19/2020 M54.5 Low back pain MELIDA Masters 06/19/2020 M79.18 Myalgia, other site Russ madrigal PA 06/14/2020 M54.5 Low back pain Brodie oates, [place] 06/01/2020 M54.5 Low back pain Jenifer Walters, [place] 05/30/2020 M54.5 Low back pain Hillary Josephmelida , MSPT 05/08/2020 M54.5 Low back pain MELIDA Masters 05/08/2020 M79.18 Myalgia, other site MELIDA Cano Plan of Treatment Future Appointment(s):* 08/06/2020 11:00 am - MELIDA Masters at [place] 06/19/2020 - MELIDA Masters* M54.5 Low back pain* New Medication:* Meloxicam 15 mg - 1 by mouth every day with food * Follow up:* in 6 weeks with [facility] for back/med recheck * M79.18 Myalgia, other site Functional Status Description No Information Available Mental Status Description No Information Available Referrals Refer to Dr Reason for Referral Status Appt Date Terrance Ahmadi MD authorization for physical t herapy evaluation [phone], back. patient coming here. passed to PT Dept. AC Created [address] [place] [address] [phone] Terrance Ahmadi MD authorization for physical t herapy Low Back. PAtient coming here. AC Created [address] [place] [address] [phone]
--- OUTSIDE RECORDS SUMMARY | 2020-09-13 20:51 | CCD ---
Author Author [facility] Organization [facility] Address Unknown Phone Unavailable Care Team Providers Care Tool Engineer Name Role Phone Rajat STEEL SCALE ASSEMBLY SET UP WORKER Unavailable Unavailable Rajat STEEL SCALE ASSEMBLY SET UP WORKER Unavailable Unavailable Rajat STEEL SCALE ASSEMBLY SET UP WORKER Unavailable Unavailable Rajat STEEL SCALE ASSEMBLY SET UP WORKER Unavailable Unavailable Rajat STEEL SCALE ASSEMBLY SET UP WORKER Unavailable Unavailable Rajat STEEL SCALE ASSEMBLY SET UP WORKER Unavailable Unavailable STEELRajat Parsons SCALE ASSEMBLY SET UP WORKER Unavailable Unavailable STEELRajat Parsons SCALE ASSEMBLY SET UP WORKER Unavailable Unavailable STEELRajat Parsons SCALE ASSEMBLY SET UP WORKER Unavailable Unavailable STEELRajat Parsons SCALE ASSEMBLY SET UP WORKER Unavailable Unavailable STEELRajat Parsons SCALE ASSEMBLY SET UP WORKER Unavailable Unavailable STEELRajat Parsons SCALE ASSEMBLY SET UP WORKER Unavailable Unavailable Rajat STEEL SCALE ASSEMBLY SET UP WORKER Unavailable Unavailable STEELRajat ParsonsE SCALE ASSEMBLY SET UP WORKER Unavailable Unavailable Rajat STEEL SCALE ASSEMBLY SET UP WORKER Unavailable Unavailable Rajat STEEL SCALE ASSEMBLY SET UP WORKER Unavailable Unavailable Rajat STEEL SCALE ASSEMBLY SET UP WORKER Unavailable Unavailable STEELRajat Parsons SCALE ASSEMBLY SET UP WORKER Unavailable Unavailable STEELRajat Parsons SCALE ASSEMBLY SET UP WORKER Unavailable Unavailable STEELRajat Parsons SCALE ASSEMBLY SET UP WORKER Unavailable Unavailable STEELRajat ParsonsE SCALE ASSEMBLY SET UP WORKER Unavailable Unavailable STEELRajat Parsons SCALE ASSEMBLY SET UP WORKER Unavailable Unavailable STEELRajat Parsons SCALE ASSEMBLY SET UP WORKER Unavailable Unavailable STEEL, M DAMASO SCALE ASSEMBLY SET UP WORKER Unavailable Unavailable STEEL, M DAMASO SCALE ASSEMBLY SET UP WORKER Unavailable Unavailable STEEL, M DAMASO SCALE ASSEMBLY SET UP WORKER Unavailable Unavailable STEEL, M DAMASO SCALE ASSEMBLY SET UP WORKER Unavailable Unavailable STEEL, M DAMASO SCALE ASSEMBLY SET UP WORKER Unavailable Unavailable STEEL, M DAMASO SCALE ASSEMBLY SET UP WORKER Unavailable Unavailable STEEL, M DAMASO SCALE ASSEMBLY SET UP WORKER Unavailable Unavailable STEEL, M DAMASO SCALE ASSEMBLY SET UP WORKER Unavailable Unavailable STEEL, M DAMASO SCALE ASSEMBLY SET UP WORKER Unavailable Unavailable STEEL, M DAMASO SCALE ASSEMBLY SET UP WORKER Unavailable Unavailable STEEL, M DAMASO SCALE ASSEMBLY SET UP WORKER Unavailable Unavailable STEEL, M DAMASO SCALE ASSEMBLY SET UP WORKER Unavailable Unavailable STEEL, M DAMASO SCALE ASSEMBLY SET UP WORKER Unavailable Unavailable STEEL, M DAMASO SCALE ASSEMBLY SET UP WORKER Unavailable Unavailable STEEL, M DAMASO SCALE ASSEMBLY SET UP WORKER Unavailable Unavailable STEEL, M DAMASO SCALE ASSEMBLY SET UP WORKER Unavailable Unavailable STEEL, M DAMASO SCALE ASSEMBLY SET UP WORKER Unavailable Unavailable STEEL, M DAMASO SCALE ASSEMBLY SET UP WORKER Unavailable Unavailable STEEL, M DAMASO SCALE ASSEMBLY SET UP WORKER Unavailable Unavailable STEEL, M DAMASO SCALE ASSEMBLY SET UP WORKER Unavailable Unavailable STEEL, M DAMASO SCALE ASSEMBLY SET UP WORKER Unavailable Unavailable STEEL, M DAMASO SCALE ASSEMBLY SET UP WORKER Unavailable Unavailable STEEL, M DAMASO SCALE ASSEMBLY SET UP WORKER Unavailable Unavailable STEEL, M DAMASO SCALE ASSEMBLY SET UP WORKER Unavailable Unavailable STEEL, M DAMASO SCALE ASSEMBLY SET UP WORKER Unavailable Unavailable STEEL, M DAMASO SCALE ASSEMBLY SET UP WORKER Unavailable Unavailable STEEL, M DAMASO SCALE ASSEMBLY SET UP WORKER Unavailable Unavailable STEEL, M DAMASO SCALE ASSEMBLY SET UP WORKER Unavailable Unavailable STEEL, M DAMASO SCALE ASSEMBLY SET UP WORKER Unavailable Unavailable STEEL, M DAMASO SCALE ASSEMBLY SET UP WORKER Unavailable Unavailable STEEL, M DAMASO SCALE ASSEMBLY SET UP WORKER Unavailable Unavailable STEEL, M DAMASO SCALE ASSEMBLY SET UP WORKER Unavailable Unavailable STEEL, M DAMASO SCALE ASSEMBLY SET UP WORKER Unavailable Unavailable STEEL, M DAMASO SCALE ASSEMBLY SET UP WORKER Unavailable Unavailable STEEL, M DAMASO SCALE ASSEMBLY SET UP WORKER Unavailable Unavailable Nydia Cruz MD Unavailable Unavailable Nydia Cruz MD Unavailable Unavailable Nydia Cruz MD Unavailable Unavailable Nydia Cruz MD Unavailable Unavailable Nydia Cruz MD Unavailable Unavailable Nydia Cruz MD Unavailable Unavailable Nydia Cruz MD Unavailable Unavailable Nydia Cruz MD Unavailable Unavailable Nydia Cruz MD Unavailable Unavailable Nydia Cruz MD Unavailable Unavailable Nydia Cruz MD Unavailable Unavailable Nydia Cruz MD Unavailable Unavailable Nydia Cruz MD Unavailable Unavailable Nydia Cruz MD Unavailable Unavailable Nydia Cruz MD Unavailable Unavailable Nydia Cruz MD Unavailable Unavailable Nydia Cruz MD Unavailable Unavailable Nydia Cruz MD Unavailable Unavailable Nydia Cruz MD Unavailable Unavailable Nydia Cruz MD Unavailable Unavailable Nydia Cruz MD Unavailable Unavailable Nydia Cruz MD Unavailable Unavailable Nydia Cruz MD Unavailable Unavailable Nydia Cruz MD Unavailable Unavailable Nydia Cruz MD Unavailable Unavailable Nydia Cruz MD Unavailable Unavailable Nydia Cruz MD Unavailable Unavailable Nydia Cruz MD Unavailable Unavailable Nydia Cruz MD Unavailable Unavailable Nydia Cruz MD Unavailable Unavailable Nydia Cruz MD Unavailable Unavailable Nydia Cruz MD Unavailable Unavailable Nydia Cruz MD Unavailable Unavailable Nydia Cruz MD Unavailable Unavailable Nydia Cruz MD Unavailable Unavailable Nydia Cruz MD Unavailable Unavailable Nydia Cruz MD Unavailable Unavailable Nydia Cruz MD Unavailable Unavailable Nydia Cruz MD Unavailable Unavailable Nydia Cruz MD Unavailable Unavailable Nydia Cruz MD Unavailable Unavailable Nydia Cruz MD Unavailable Unavailable Nydia Cruz MD Unavailable Unavailable Nydia Cruz MD Unavailable Unavailable Nydia Cruz MD Unavailable Unavailable Nydia Cruz MD Unavailable Unavailable Nydia Cruz MD Unavailable Unavailable Nydia Cruz MD Unavailable Unavailable Nydia Cruz MD Unavailable Unavailable Nydia Cruz MD Unavailable Unavailable Ndyia Cruz MD Unavailable Unavailable Nydia Cruz MD Unavailable Unavailable Nydia Cruz MD Unavailable Unavailable Nydia Cruz MD Unavailable Unavailable Nydia Cruz MD Unavailable Unavailable Nydia Cruz MD Unavailable Unavailable Nydia Cruz MD Unavailable Unavailable Nydia Cruz MD Unavailable Unavailable Nydia Cruz MD Unavailable Unavailable Nydia Cruz MD Unavailable Unavailable Anthony, O Samah MD Unavailable Unavailable Anthony, O Samah MD Unavailable Unavailable Anthony, O Samah MD Unavailable Unavailable Anthony, O Samah MD Unavailable Unavailable Anthony, O Samah MD Unavailable Unavailable Anthony, O Samah MD Unavailable Unavailable Anthony, O Samah MD Unavailable Unavailable Anthony, O Samah MD Unavailable Unavailable Anthony, O Samah MD Unavailable Unavailable Anthony, O Samah MD Unavailable Unavailable Anthony, O Samah MD Unavailable Unavailable Anthony, O Samah MD Unavailable Unavailable Anthony, O Samah MD Unavailable Unavailable Anthony, O Samah MD Unavailable Unavailable Anthony, O Samah MD Unavailable Unavailable Anthony, O Samah MD Unavailable Unavailable ANDREE, M GENARO PA Unavailable Unavailable ANDREE, M GENARO PA Unavailable Unavailable ANDREE, M GENARO PA Unavailable Unavailable ANDREE, M GENARO PA Unavailable Unavailable ANDREE, M GENARO PA Unavailable Unavailable ANDREE, M GENARO PA Unavailable Unavailable ANDREE, M GENARO PA Unavailable Unavailable ANDREE, M GENARO PA Unavailable Unavailable ANDREE, M GENARO PA Unavailable Unavailable ANDREE, M GENARO PA Unavailable Unavailable ANDREE, M GENARO PA Unavailable Unavailable ANDREE, M GENARO PA Unavailable Unavailable ANDREE, M GENARO PA Unavailable Unavailable ANDREE, M GENARO PA Unavailable Unavailable ANDREE, M GENARO PA Unavailable Unavailable ANDREE, M GENARO PA Unavailable Unavailable ANDREE, M GENARO PA Unavailable Unavailable ANDREE, M GENARO PA Unavailable Unavailable ANDREE, M GENARO PA Unavailable Unavailable ANDREE, M GENARO PA Unavailable Unavailable ANDREE, M GENARO PA Unavailable Unavailable ANDREE, M GENARO PA Unavailable Unavailable ANDREE, M GENARO PA Unavailable Unavailable ANDREE, M GENARO PA Unavailable Unavailable Re-disclosure Warning The records that you are about to access may contain information from federally-assisted alcohol or drug abuse programs. If such information is present, then the following federally mandated warning applies: This information has been disclosed to you from records protected by federal confidentiality rules (42 CFR part 2). The federal rules prohibit you from making any further disclosure of this information unless further disclosure is expressly permitted by the written consent of the person to whom it pertains or as otherwise permitted by 42 CFR part 2. A general authorization for the release of medical or other information is NOT sufficient for this purpose. The Federal rules restrict any use of the information to criminally investigate or prosecute any alcohol or drug abuse patient.The records that you are about to access may contain highly sensitive health information, the redisclosure of which is protected by Article 27-F of the [facility] Public Health law. If you continue you may have access to information: Regarding HIV / AIDS; Provided by facilities licensed or operated by the [facility] Office of Mental Health; or Provided by the [facility] Office for People With Developmental Disabilities. If such information is present, then the following [facility] mandated warning applies: This information has been disclosed to you from confidential records which are protected by state law. State law prohibits you from making any further disclosure of this information without the specific written consent of the person to whom it pertains, or as otherwise permitted by law. Any unauthorized further disclosure in violation of state law may result in a fine or assisted sentence or both. A general authorization for the release of medical or other information is NOT sufficient authorization for further disc losure. Encounters Encounter Providers Location Date Indications Data Source(s ) Outpatient Attender: GENARO REHMAN Physical Therapy 07/11 10:00:00 AM EST [facility] ([facility]) Outpatient Attender: DAMASO STEEL NP [place] [facility] 07/02 09:40:00 AM EST [facility] ([facility] Outpatient Attender: GENARO REHMAN Physical Therapy 06/10 09:15:00 AM EST [facility] ([facility]) Outpatient Attender: Lynnette Cruz MD Main office [facility] 05/24/2020 09:00:00 AM EDT [facility] ([facility] Outpatient Attender: DAMASO STEEL NP [place] [facility] 05/21 10:45:00 AM EDT [facility] ([facility] OFFICE OUTPATIENT NEW 30 MINUTES Attender: GENARO REHAMN Phys ical Therapy 05/08/2020 08:30:00 AM EDT [facility] ([facility]) Outpatient Attender: DAMASO STEEL NP [place] [facility] 04/26 10:45:00 AM EDT [facility] Outpatient Attender: DAMASO MILVIA BOOTHE [place] [facility] 04/13 11:30:00 AM EDT [facility] ([facility] Medications Medication Brand Name Start Date Product Form Dose Route Admi nistrative Instructions Pharmacy Instructions Status Indications Reaction Description Data Source(s) meloxicam 15 MG Oral Tablet Meloxicam 06/19/2020 12:00:00 AM EST ORAL completed [facility] ([facility] 15 mg 06/19/2020 12:00:00 AM EST tablet 30 TAKE 1 TABLET BY MOUTH EVERY DAY WITH FOOD TAKE 1 TABLET BY MOUTH EVERY DAY WITH FOOD SOLD: 06/21/2020 [facility] 80 mg 06/15/2020 12:00:00 AM EST tablet 60 TAKE ONE TABLET BY MOUTH TWICE A DAY TAKE ONE TABLET BY MOUTH TWICE A DAY SOLD: 09/11/2020 [facility] 4 mg 06/15/2020 12:00:00 AM EST tablet,disintegrating 3 0 DISSOLVE ONE TABLET ON TONGUE EVERY 8 HOURS NEEDED FOR MIGRAINE OR NAUSEA AND VOMITING DISSOLVE ONE TABLET ON TONGUE EVERY 8 HOURS NEEDED FOR MIGRAINE OR NAUSEA AND VOMITING SOLD: 06/15/2020 [facility] 80 mg 06/15/2020 12:00:00 AM EST tablet 50 TAKE ONE TABLET BY MOUTH TWICE A DAY TAKE ONE TABLET BY MOUTH TWICE A DAY SOLD: 06/18/2020 [facility] 4 mg 06/15/2020 12:00:00 AM EST tablet,disintegrating 3 0 DISSOLVE ONE TABLET ON TONGUE EVERY 8 HOURS NEEDED FOR MIGRAINE OR NAUSEA AND VOMITING DISSOLVE ONE TABLET ON TONGUE EVERY 8 HOURS NEEDED FOR MIGRAINE OR NAUSEA AND VOMITING SOLD: 09/11/2020 [facility] 100 mg 06/14/2020 12:00:00 AM EST tablet 9 TAKE 1 TABLET BY MOUTH AT ONSET OF MIGRAINE, MAY REPEAT DOSE IN 1 HOUR IF NOT BETTER, MAXIMUM DAILY DOSE = 2 TABLETS DAILY AND MAX 4 TABLETS IN 7 DAYS TAKE 1 TABLET BY MOUTH AT ONSET OF MIGRAINE, MAY REPEAT DOSE IN 1 HOUR IF NOT BETTER, MAXIMUM DAILY DOSE = 2 TABLETS DAILY AND MAX 4 TABLETS IN 7 DAYS SOLD: 09/11/2020 [facility] 100 mg 06/14/2020 12:00:00 AM EST tablet 9 TAKE 1 TABLET BY MOUTH AT ONSET OF MIGRAINE, MAY REPEAT DOSE IN 1 HOUR IF NOT BETTER, MAXIMUM DAILY DOSE = 2 TABLETS DAILY AND MAX 4 TABLETS IN 7 DAYS TAKE 1 TABLET BY MOUTH AT ONSET OF MIGRAINE, MAY REPEAT DOSE IN 1 HOUR IF NOT BETTER, MAXIMUM DAILY DOSE = 2 TABLETS DAILY AND MAX 4 TABLETS IN 7 DAYS SOLD: 06/15/2020 [facility] 40 mg 05/25/2020 12:00:00 AM EDT tablet 60 TAKE 1 TABLET BY MOUTH AT BEDTIME X 1 WEEK THEN 1 TWO TIMES A DAY TAKE 1 TABLET BY MOUTH AT BEDTIME X 1 WE EK THEN 1 TWO TIMES A DAY SOLD: 05/26/2020 [facility] Verapamil hydrochloride 40 MG Oral Tablet Verapamil HCL 05/24/2020 12:00:00 AM EDT active [facility] ([facility]) meloxicam 7.5 MG Oral Tablet MELOXICAM 05/23/2020 12:00:00 AM EDT tabl et 30 TAKE ONE TABLET BY MOUTH EVERY DAY WITH FOOD TAKE ONE TABLET BY MOUTH EVERY DAY WITH FOOD SOLD: 05/25/2020 [facility] pantoprazole 40 MG Delayed Release Oral Tablet PANTOPRAZOLE SODIUM 05/21/2020 12:00:00 AM EDT tablet,delayed release (DR/EC) 30 T ISRAEL ONE TABLET BY MOUTH EVERY DAY TAKE ONE TABLET BY MOUTH EVERY DAY SOLD: 09/11/2020 [facility] pantoprazole 40 MG Delayed Release Oral Tablet PANTOPRAZOLE SODIUM 05/21/2020 12:00:00 AM EDT tablet,delayed release (DR/EC) 30 T ISRAEL ONE TABLET BY MOUTH EVERY DAY TAKE ONE TABLET BY MOUTH EVERY DAY SOLD: 05/23/2020 [facility] pantoprazole 40 MG Delayed Release Oral Tablet [Protonix] Pr otonix 05/21/2020 12:00:00 AM EDT ORAL active M [facility] ([facility] meloxicam 7.5 MG Oral Tablet Meloxicam 05/08/2020 12:00:00 AM EDT ORAL completed [facility] ([facility]) meloxicam 7.5 MG Oral Tablet MELOXICAM 05/08/2020 12:00:00 AM EDT tabl et 30 TAKE ONE TABLET BY MOUTH EVERY DAY WITH FOOD TAKE ONE TABLET BY MOUTH EVERY DAY WITH FOOD SOLD: 05/09/2020 [facility] Cyclobenzaprine hydrochloride 10 MG Oral Tablet CYCLOBENZAPR INE HCL 04/13/2020 12:00:00 AM EDT tablet 30 TAKE ONE TABLET BY MOUTH THREE TIMES A DAY DO NOT TAKE IF DRIVING OR OPERATING EQUIPMENT TAKE ONE TABLET BY MOUTH THREE TIMES A DAY DO NOT TAKE IF DRIVING OR OPERATING EQUIPMENT SOLD: 04/14/2020 [facility] Omeprazole 40 MG Delayed Release Oral Capsule Omeprazole 04/13/2020 12:00:00 AM EDT ORAL completed [facility] ([facility] 30 mg 04/13/2020 12:00:00 AM EDT capsule,delayed release (DR/EC) 30 TAKE ONE CAPSULE BY MOUTH EVERY DAY TAKE ONE CAPSULE BY MOUTH EVERY DAY SOLD: 04/14/2020 [facility] Esomeprazole 40 MG Delayed Release Oral Capsule [Nexium] Nex ium 04/13/2020 12:00:00 AM EDT ORAL completed [facility] ([facility] duloxetine 30 MG Delayed Release Oral Capsule [Cymbalta] Cym rosette 04/13/2020 12:00:00 AM EDT ORAL active M [facility] ([facility] Cyclobenzaprine hydrochloride 10 MG Oral Tablet Cyclobenzapr ine HCL 04/13/2020 12:00:00 AM EDT ORAL completed [facility] ([facility] Insurance Providers Payer name Policy type / Coverage type Policy ID Covered libertarian ID Covered libertarian's relationship to whitney Policy Whitney Plan Information [facility] PL[facility] [id number] SP [id number] [facility] [id number] SP [id number] [facility] I [id number] Self [id number] [facility] Community Plan Commercial Self MEDICAID [id number] SP [id number] [facility] S [id number] S [id number] REPLACED BY [facility] [id number] SP [id number] [facility] P [id number] S [id number] Surgeries/Procedures Procedure Description Date Indications Data Source(s) THERAPEUTIC PX 1/> AREAS EACH 15 MIN EXERCISES 12:00:00 AM EST [facility] ([facility]) MANUAL THERAPY TQS 1/> REGIONS EACH 15 MINUTES 12:00:00 AM EST [facility] ([facility]) APPL MODALITY 1/> AREAS ELEC STIMJ EA 15 MIN 0 12:00:00 AM EST [facility] ([facility] THERAPEUTIC PX 1/> AREAS EACH 15 MIN EXERCISES 12:00:00 AM EST [facility] ([facility] MANUAL THERAPY TQS 1/> REGIONS EACH 15 MINUTES 12:00:00 AM EST [facility] ([facility] APPL MODALITY 1/> AREAS ELEC STIMJ EA 15 MIN 0 12:00:00 AM EST [facility] ([facility] THERAPEUTIC PX 1/> AREAS EACH 15 MIN EXERCISES 12:00:00 AM EST [facility] ([facility] MANUAL THERAPY TQS 1/> REGIONS EACH 15 MINUTES 12:00:00 AM EST [facility] ([facility] Magnetic Resonance Angiogtaphy Head W/O Contrast Material(S) 06/12/2020 12:00:00 AM EST [facility] ([facility] Magnetic Resonance Angiogtaphy Head W/O Contrast Material(S) 06/12/2020 12:00:00 AM EST [facility] ([facility] MRI BRAIN BRAIN STEM W/O CONTRAST MATERIAL 06/12/2020 12:00:00 AM EST [facility] ([facility] MRI BRAIN BRAIN STEM W/O CONTRAST MATERIAL 06/12/2020 12:00:00 AM EST [facility] ([facility] APPL MODALITY 1/> AREAS ELEC STIMJ EA 15 MIN 0 12:00:00 AM EDT [facility] ([facility] THERAPEUTIC PX 1/> AREAS EACH 15 MIN EXERCISES 12:00:00 AM EDT [facility] ([facility] MANUAL THERAPY TQS 1/> REGIONS EACH 15 MINUTES 12:00:00 AM EDT [facility] ([facility] Physical Therapy Eval - Low Complexity 05/30/2020 12:0 0:00 AM EDT [facility] ([facility] Needle electromyography, each extremity, with related paraspinal areas, when performed, done with nerve conduction, amplitude and latency/velocity study; complete, five or more muscles studied, innervated by three or more nerves or four or more spinal levels (list separately in addition to the code for primary procedure). 05/30/2020 12:00:00 AM EDT [facility] T ([facility] Needle electromyography, each extremity, with related paraspinal areas, when performed, done with nerve conduction, amplitude and latency/velocity study; complete, five or more muscles studied, innervated by three or more nerves or four or more spinal levels (list separately in addition to the code for primary procedure). 05/30/2020 12:00:00 AM EDT [facility] T ([facility] Nerve Conduction 9-10 Studies 05/30/2020 12:00:00 AM E DT [facility] ([facility] Results ID Date Data Source [id number] 07/10/2020 02:27:00 PM EST [facility] ([facility]) Name Value Range Interpretation Code Description Data Suze rce(s) Supporting Document(s) Creatinine For GFR 0.77 mg/dL 0.55-1.30 [facility] ([facility]) Glomerular Filtration Rate Laboratory test result [facility] ([facility]) <content>Units are mL/min/1.73 m2</content>
<content></content>
<content>Chronic Kidney Disease Staging per NKF:</content>
<content></content>
<content>Stage I & II GFR >=60 Normal to Mildly Decreased</content>
<content>Stage III GFR 30- 59 Moderately Decreased</content>
<content>Stage IV GFR 15-29 Severely Decreased</content>
<content>Stage V GFR <15 Very Little GFR Left</content>
<content>ESRD GFR <15 on FOAMING MACHINE OPERATOR</content>
<content></content> ID Date Data Source [id number] 07/10/2020 02:27:00 PM EST [facility] ([facility] Name Value Range Interpretation Code Description Data Suze rce(s) Supporting Document(s) Urea nitrogen [Mass/volume] in Serum or Plasma 13 mg/dL 7-18 [facility] ([facility] ) ID Date Data Source [id number] 07/10/2020 02:27:00 PM EST [facility] ([facility] Name Value Range Interpretation Code Description Data Suze rce(s) Supporting Document(s) Creatinine For GFR 0.77 mg/dL 0.55-1.30 Normal (applies to non -numeric results) [facility] ([facility] Glomerular Filtration Rate Laboratory test result Normal (applies to non- numeric results) [facility] ([facility] ) <content>Units are mL/min/1.73 m2</content>
<content></content>
<content>Chronic Kidney Disease Staging per NKF:</content>
<content></content>
<content>Stage I & II GFR >=60 Normal to Mildly Decreased</content>
<content>Stage III GFR 30- 59 Moderately Decreased</content>
<content>Stage IV GFR 15-29 Severely Decreased</content>
<content>Stage V GFR <15 Very Little GFR Left</content>
<content>ESRD GFR <15 on FOAMING MACHINE OPERATOR</content>
<content></content> ID Date Data Source [id number] 07/10/2020 02:27:00 PM EST [facility] ([facility] Name Value Range Interpretation Code Description Data Suze rce(s) Supporting Document(s) Urea nitrogen [Mass/volume] in Serum or Plasma 13 mg/dL 7 -18 Normal (applies to non-numeric results) [facility] ([facility]) Procedure Vital Signs ID Date Data Source UNK Name Value Range Interpretation Code Description Data Source(s) Oxygen saturation in Arterial blood by Pulse oximetry 98 % 98 % [facility] ([facility] Body mass index (BMI) [Ratio] 30.7 kg/m2 30.7 k g/m2 [facility] ([facility] [place] body weight 110 [lb_av] 110 [lb_av] CRISTOFEREN T ([facility] Body weight 168.00 [lb_av] 168.00 [lb_av] EMMETT T ([facility] Body height 62 [in_i] 62 [in_i] [facility] 5'2" Respiratory rate 18 /min 18 /min [facility] ( [facility] Heart rate 98 /min 98 /min [facility] ([facility] Body temperature 97.7 [degF] 97.7 [degF] [facility] ([facility] Diastolic blood pressure 86 mm[Hg] 86 mm[Hg] [facility] ([facility] Systolic blood pressure 136 mm[Hg] 136 mm[Hg] M [facility] ([facility] Body temperature 97.7 [degF] 97.7 [degF] [facility] ([facility] [place] body weight 110 [lb_av] 110 [lb_av] [facility] T ([facility] Body mass index (BMI) [Ratio] 31.1 kg/m2 31.1 k g/m2 [facility] ([facility] Body weight 170.00 [lb_av] 170.00 [lb_av] [facility] T ([facility] Body height 62 [in_i] 62 [in_i] [facility] ([facility] 5'2" Respiratory rate 12 /min 12 /min [facility] ( [facility] Oxygen saturation in Arterial blood by Pulse oximetry 98 % 98 % [facility] ([facility] Body mass index (BMI) [Ratio] 31.3 kg/m2 31.3 k g/m2 [facility] ([facility] [place] body weight 110 [lb_av] 110 [lb_av] [facility] T ([facility] Body weight 171.00 [lb_av] 171.00 [lb_av] [facility] T ([facility] Body height 62 [in_i] 62 [in_i] MEDENT ([facility] 5'2" Respiratory rate 16 /min 16 /min MEDENT ( [facility] Heart rate 90 /min 90 /min MEDENT ([facility] Body temperature 98.4 [degF] 98.4 [degF] MEDENT ([facility] Diastolic blood pressure 90 mm[Hg] 90 mm[Hg] MEDENT ([facility] Systolic blood pressure 146 mm[Hg] 146 mm[Hg] M EDENT ([facility] Body mass index (BMI) [Ratio] 31.3 kg/m2 31.3 k g/m2 MEDENT ([facility] Body weight 171.00 [lb_av] 171.00 [lb_av] MEDEN T ([facility]) Body height 62 [in_i] 62 [in_i] MEDENT ([facility]) 5'2" Body temperature 96.0 [degF] 96.0 [degF] MEDENT ([facility]) Oxygen saturation in Arterial blood by Pulse oximetry 98 % 98 % DWAYNE ([facility] ([place]), ([place] [facility]) Body mass index (BMI) [Ratio] 31.1 kg/m2 31.1 k g/m2 MEDENT ([facility] [place] body weight 110 [lb_av] 110 [lb_av] MEDEN T ([facility] Body weight 170.00 [lb_av] 170.00 [lb_av] MEDEN T ([facility] Body height 62 [in_i] 62 [in_i] MEDENT ([facility] 5'2" Respiratory rate 17 /min 17 /min MEDENT ( [facility] Heart rate 85 /min 85 /min MEDENT ([facility] Body temperature 97.8 [degF] 97.8 [degF] MEDENT ([facility] Diastolic blood pressure 80 mm[Hg] 80 mm[Hg] MEDTORSTEN ([facility] Systolic blood pressure 140 mm[Hg] 140 mm[Hg] M EDTORSTEN ([facility] Oxygen saturation in Arterial blood by Pulse oximetry 98 % 98 % DWAYNE ([facility] Body mass index (BMI) [Ratio] 31.6 kg/m2 31.6 k g/m2 MEDENT ([facility] [place] body weight 110 [lb_av] 110 [lb_av] MEDEN T ([facility] Body weight 173.00 [lb_av] 173.00 [lb_av] MEDEN T ([facility] Body height 62 [in_i] 62 [in_i] MEDENT ([facility] 5'2" Respiratory rate 18 /min 18 /min MEDENT ( [facility] Heart rate 96 /min 96 /min MEDENT ([facility] Body temperature 98.5 [degF] 98.5 [degF] MEDENT ([facility] Diastolic blood pressure 82 mm[Hg] 82 mm[Hg] MEDENT ([facility] Systolic blood pressure 130 mm[Hg] 130 mm[Hg] M EDENT ([facility] Diastolic blood pressure 88 mm[Hg] 88 mm[Hg] MEDENT ([facility] Systolic blood pressure 150 mm[Hg] 150 mm[Hg] M EDENT ([facility]
--- OUTSIDE RECORDS SUMMARY | 2020-09-13 20:51 | CCD | Continuity of Care Document ---
Author Author Meagan WORTHINGTON [facility] Organization Unknown Address [address] [facility] [address] [place] [address] Phone [phone] Care Team Providers Care Registered Nurse Supervisor Name Role Phone [facility] - Orthopedic/Phys/Osteo AUTM [phone] Donald Shaver AUTM [phone] Problems Description No Information Available Social History Type Date Description Comments Sex Unknown Tobacco Use Start: Unknown End: Unknown Patient is a former smoker Allergies, Adverse Reactions, Alerts Description No Known Drug Allergies Medications Active Medications SIG Qnty Indications Ordering Provide r Date Protonix 40mg Tablets DR 1 by mouth every day 30tabs [facility] [address]ymb[address] Part 1 by mouth every day 30caps [facility] Meloxicam 15mg Tablets 1 by mouth every day [facility] Verapamil HCL 80mg Tablets 1 by mouth bid Donald Shaver History Medications Omeprazole 40mg Capsules DR 1 by mouth every day 30caps Maria Del Rosario Worthington FNP- 0 - 05/21/[address] 1 by mouth every day caps Maria Del Rosario Worthington [facility] 0 - 05/21/2020 Cyclobenzaprine HCL 10mg [...] Height 62 inches 5'2" Weight 168.00 lb [place] Body Weight 110 lb BMI (Body Mass Index) 30.7 kg/m2 O2 % BldC Oximetry 98 % 05/21/2020 12:13pm BP Systolic 146 mmHg BP Diastolic 90 mmHg Body Temperature 98.4 F Heart Rate 90 /min Respiratory Rate 16 /min Height 62 inches 5'2" Weight 171.00 lb [place] Body Weight 110 lb BMI (Body Mass Index) 31.3 kg/m2 O2 % BldC Oximetry 98 % Results Description No Information Available Procedures Description No Information Available Medical Devices Description No Information Available Encounters Type Date Location Provider Dx Diagnosis Office Visit 07/02/2020 10:40a [place] [facility] RoundsMaria Del Rosario FNP-B C R03.0 Elevated blood-pressure reading, w/o diagnosis of htn G47.00 Insomnia, unspecified F32.9 Major depressive disorder, s ghazal episode, unspecified F41.9 Anxiety disorder, unspecifie d G43.909 Migraine, unsp, not intracta ble, without status migrainosus M54.5 Low back pain K21.9 Gastro-esophageal reflux dis ease without esophagitis R10.13 Epigastric pain Office Visit 05/21/2020 10:45a [place] [facility] RoundsMaria Del Rosario FNP-B C G43.909 Migraine, unsp, not intractable, without status migrainosus F32.9 Major depressive disorder, s ghazal episode, unspecified F41.9 Anxiety disorder, unspecifie d M54.5 Low back pain R03.0 Elevated blood-pressure read ing, w/o diagnosis of htn G47.00 Insomnia, unspecified Office Visit 04/26/2020 10:45a [place] [facility] RoundsMaria Del Rosario FNP-B C G43.909 Migraine, unsp, not intractable, without status migrainosus F32.9 Major depressive disorder, s ghazal episode, unspecified F41.9 Anxiety disorder, unspecifie d M54.5 Low back pain Office Visit 04/13/2020 11:30a [place] Office RoundsMaria Del Rosario FNP-B C G43.909 Migraine, unsp, not intractable, without status migrainosus F32.9 Major depressive disorder, s ghazal episode, unspecified F41.9 Anxiety disorder, unspecifie d M54.5 Low back pain R03.0 Elevated blood-pressure read ing, w/o diagnosis of htn Assessments Date Code Description Provider 07/02/2020 R03.0 Elevated blood-press ure reading, without diagnosis of hypertension Maria Del Rosario Worthington, [facility] 07/02/2020 G47.00 Insomnia, unspecified Rounds, Yon Earl, [facility] 07/02/2020 F32.9 Major depressive disorder, singl e episode, unspecified Maria Del Rosario Worthington, [facility] 07/02/2020 F41.9 Anxiety disorder, unspecified Ro unds, Maria Del Rosario Earl, [facility] 07/02/2020 G43.909 Migraine, unspecifie d, not intractable, without status migrainosus Maria Del Rosario Worthington, [facility] 07/02/2020 M54.5 Low back pain Maria Del Rosario Worthington, [facility] 07/02/2020 K21.9 Gastro-esophageal reflux disease without esophagitis Maria Del Rosario Worthington, [facility] 07/02/2020 R10.13 Epigastric pain Maria Del Rosario Worthington, [facility] 05/21/2020 G43.909 Migraine, unspecifie d, not intractable, without status migrainosus Maria Del Rosario Worthington, [facility] 05/21/2020 F32.9 Major depressive disorder, singl e episode, unspecified Maria Del Rosario Worthington, [facility] 05/21/2020 F41.9 Anxiety disorder, unspecified Ro unds, Maria Del Rosario Earl, [facility] 05/21/2020 M54.5 Low back pain RoundsMaria Del Rosario, [facility] 05/21/2020 R03.0 Elevated blood-press ure reading, without diagnosis of hypertension Maria Del Rosario Worthington, [facility] 05/21/2020 G47.00 Insomnia, unspecified Elin, Yon karthik Rajat, [facility] 04/26/2020 G43.909 Migraine, unspecifie d, not intractable, without status migrainosus Maria Del Rosario Worthington, [facility] 04/26/2020 F32.9 Major depressive disorder, singl e episode, unspecified Maria Del Rosario WorthingtonMICHAEL 04/26/2020 F41.9 Anxiety disorder, unspecified Ro unds, Maria Del Rosario EarlMICHAEL 04/26/2020 M54.5 Low back pain Maria Del Rosario WorthingtonMICHAEL 04/13/2020 G43.909 Migraine, unspecifie d, not intractable, without status migrainosus Maria Del Rosario WorthingtonMICHAEL 04/13/2020 F32.9 Major depressive disorder, singl e episode, unspecified Maria Del Rosario WorthingtonMICHAEL 04/13/2020 F41.9 Anxiety disorder, unspecified Ro unds, Maria Del Rosario EarlMICHAEL 04/13/2020 M54.5 Low back pain Maria Del Rosario WorthingtonMICHAEL 04/13/2020 R03.0 Elevated blood-press ure reading, without diagnosis of hypertension Maria Del Rosario Worthington FNP-BC Plan of Treatment Future Appointment(s):* 10/08/2020 1:00 pm - ElinMaria Del Rosario FNP-[facility] at [facility] [place] Functional Status Description No Information Available Mental Status Description No Information Available Referrals Refer to Reason for Referral Status Appt Date Rogelio Gee M.D. epigastric discomfort and GERD Sent [address] [facility] [address] [place] [address] [phone] Sugar Shaver M.D. migraines Sent 05/10/2020 [facility] [address] [place] [address] [phone] [facility] persistent back pain Sent [address] [facility] [address] [place] [address] [phone] [facility] anxiety and depression Sent [address] [place] [address] [phone]
--- OUTSIDE RECORDS SUMMARY | 2020-09-13 20:51 | CCD | Continuity of Care Document ---
Author Author Meagan REED Organization Unknown Address [address] [place] [address] Phone [phone] Care Team Providers Care Dry Kiln Loader Name Role Phone Guzman Luna DO AUTM [phone] Problems Description No Information Available Social History Type Date Description Comments Sex Unknown ETOH Use Denies alcohol use Tobacco Use Start: Unknown End: Unknown Patient is a former smoker Allergies, Adverse Reactions, Alerts Description No Information Available Medications Active Medications SIG Qnty Indications Ordering Provide r Date Meloxicam 15mg Tablets 1 by mouth every day with food 30tabs M54.5 eTnzin Pabon MD 06/19/2020 Cyclobenzaprine HCL 10mg Tablets [...] Available Procedures Date Code Description Status 06/28/2020 72840 Manual Therapy Each 15 Minutes C ompleted 06/28/2020 78831 Therapeutic Procedure, Each 15 M inutes Completed 06/22/2020 90552 Manual Therapy Each 15 Minutes C ompleted 06/22/2020 02581 Therapeutic Procedure, Each 15 M inutes Completed 06/22/2020 65717 Electrical Stimulati on Manual, Each 15 Min, Constant Attendance Completed 06/14/2020 49698 Manual Therapy Each 15 Minutes C ompleted 06/14/2020 71861 Therapeutic Procedure, Each 15 M inutes Completed 06/14/2020 13994 Electrical Stimulati on Manual, Each 15 Min, Constant Attendance Completed 06/01/2020 75481 Manual Therapy Each 15 Minutes C ompleted 06/01/2020 39747 Therapeutic Procedure, Each 15 M inutes Completed 06/01/2020 63708 Electrical Stimulati on Manual, Each 15 Min, Constant Attendance Completed 05/30/2020 76783 Physical Therapy Eval - Low Comp lexity Completed Medical Devices Description No Information Available Encounters Type Date Location Provider Dx Diagnosis [place] M54.5 Low back pain M79.18 Myalgia, other site Office [place] M54.5 Low back pain M79.18 Myalgia, other site Assessments Date Code Description Provider 06/28/2020 M54.5 Low back pain Danamarie Ortola no, BEVERAGE SERVER 06/28/2020 M79.18 Myalgia, other site Danamarie Or tolano, BEVERAGE SERVER 06/22/2020 M54.5 Low back pain Danamarie Ortola no, BEVERAGE SERVER 06/22/2020 M79.18 Myalgia, other site Danamarie Or tolano, BEVERAGE SERVER 06/19/2020 M54.5 Low back pain SHERIE Masters 06/19/2020 M79.18 Myalgia, other site Russ madrigal PA 06/14/2020 M54.5 Low back pain Danamarie Ortola no, BEVERAGE SERVER 06/01/2020 M54.5 Low back pain Jenifer Romeo, BEVERAGE SERVER 05/30/2020 M54.5 Low back pain Hillary Rangel , MSPT 05/08/2020 M54.5 Low back pain SHERIE Masters 05/08/2020 M79.18 Myalgia, other site Russ madrigal PA Plan of Treatment Future Appointment(s):* 08/06/2020 11:00 am - SHERIE Masters at [place] 06/19/2020 - SHERIE Masters* M54.5 Low back pain* New Medication:* Meloxicam 15 mg - 1 by mouth every day with food * New Labs:* Blood Urea Nitrogen, Ordered: 06/19/20 * Creatinine With GFR, Ordered: 06/19/20 * Follow up:* in 6 weeks with [facility] for back/med recheck * M79.18 Myalgia, other site Functional Status Description No Information Available Mental Status Description No Information Available Referrals Refer to Reason for Referral Status Appt Date Terrance Ahmadi MD authorization for physical t herapy evaluation [id number], back. patient coming here. passed to PT Dept. Created [address] [place] [address] [phone] Terrance Ahmadi MD authorization for physical t herapy Low Back. PAtient coming here. Created [address] [place] [address] [phone]
--- NOTE | 2020-09-13 21:28 | REPVR ---
PROCEDURE INFORMATION: Exam: XR Chest, 1 View Exam date and time: 09/13/2020 9:07 PM Age: 44 years old Clinical indication: Chest pain TECHNIQUE: Imaging protocol: XR of the chest Views: 1 view. COMPARISON: CT Chest with contrast 04/06/2015 10:45 AM FINDINGS: Lungs: Unremarkable. No consolidation. Pleural spaces: Unremarkable. No pleural effusion. No pneumothorax. Heart/Mediastinum: Unremarkable. No cardiomegaly. Bones/joints: Unremarkable. IMPRESSION: No acute findings. Electronically signed by: Lucio Russell On 09/13/2020 21:28:37 PM
[2020-09-13 21:36] LABS: BASO % 0.2 % (0.0-1.0); EOS # 0.1 10^3/uL (0.0-0.5); EOS % 1.5 % (0.0-3.0); HEMATOCRIT 41.9 % (36.0-47.0); HEMOGLOBIN 13.5 g/dl (12.0-15.5); LYMPH # 1.6 10^3/uL (1.5-5.0); LYMPH % 18.5 % (24.0-44.0); MEAN CORPUSCULAR HGB CONC 32.2 g/dl (32.0-36.5); MEAN CORPUSCULAR VOLUME 86.7 fl (80.0-96.0); NEUTROPHILS # 5.9 10^3/uL (1.5-8.5); NEUTROPHILS % 68.7 % (36.0-66.0); PLATELET COUNT, AUTOMATED 281 10^3/uL (150-450); RED BLOOD COUNT 4.83 10^6/uL (4.00-5.40)
[2020-09-13 22:02] LABS: WHITE BLOOD COUNT 8.6 10^3/uL (4.0-10.0)
--- OUTSIDE RECORDS SUMMARY | 2020-09-13 22:03 | CCD ---
Author Author [facility] Organization [facility] Address Unknown Phone Unavailable Care Team Providers Care Dialysis Registered Nurse Name Role Phone Rajat STEEL ROUGH RICE TENDER Unavailable Unavailable Rajat STEEL ROUGH RICE TENDER Unavailable Unavailable Rajat STEEL ROUGH RICE TENDER Unavailable Unavailable Rajat STEEL ROUGH RICE TENDER Unavailable Unavailable Rajat STEEL ROUGH RICE TENDER Unavailable Unavailable Rajat STEEL ROUGH RICE TENDER Unavailable Unavailable STEELRajat Parsons ROUGH RICE TENDER Unavailable Unavailable STEELRajat Parsons ROUGH RICE TENDER Unavailable Unavailable STEELRajat Parsons ROUGH RICE TENDER Unavailable Unavailable STEELRajat Parsons ROUGH RICE TENDER Unavailable Unavailable STEELRajat aPrsons ROUGH RICE TENDER Unavailable Unavailable STEELRajat Parsons ROUGH RICE TENDER Unavailable Unavailable Rajat STEEL ROUGH RICE TENDER Unavailable Unavailable STEELRajat ParsonsE ROUGH RICE TENDER Unavailable Unavailable Rajat STEEL ROUGH RICE TENDER Unavailable Unavailable Rajat STEEL ROUGH RICE TENDER Unavailable Unavailable Rajat STEEL ROUGH RICE TENDER Unavailable Unavailable STEELRajat Parsons ROUGH RICE TENDER Unavailable Unavailable STEELRajat Parsons ROUGH RICE TENDER Unavailable Unavailable STEELRajat Parsons ROUGH RICE TENDER Unavailable Unavailable STEELRajat ParsonsE ROUGH RICE TENDER Unavailable Unavailable STEELRajat Parsons ROUGH RICE TENDER Unavailable Unavailable STEELRajat Parsons ROUGH RICE TENDER Unavailable Unavailable STEEL, M DAMASO ROUGH RICE TENDER Unavailable Unavailable STEEL, M DAMASO ROUGH RICE TENDER Unavailable Unavailable STEEL, M DAMASO ROUGH RICE TENDER Unavailable Unavailable STEEL, M DAMASO ROUGH RICE TENDER Unavailable Unavailable STEEL, M DAMASO ROUGH RICE TENDER Unavailable Unavailable STEEL, M DAMASO ROUGH RICE TENDER Unavailable Unavailable STEEL, M DAMASO ROUGH RICE TENDER Unavailable Unavailable STEEL, M DAMASO ROUGH RICE TENDER Unavailable Unavailable STEEL, M DAMASO ROUGH RICE TENDER Unavailable Unavailable STEEL, M DAMASO ROUGH RICE TENDER Unavailable Unavailable STEEL, M DAMASO ROUGH RICE TENDER Unavailable Unavailable STEEL, M DAMASO ROUGH RICE TENDER Unavailable Unavailable STEEL, M DAMASO ROUGH RICE TENDER Unavailable Unavailable STEEL, M DAMASO ROUGH RICE TENDER Unavailable Unavailable STEEL, M DAMASO ROUGH RICE TENDER Unavailable Unavailable STEEL, M DAMASO ROUGH RICE TENDER Unavailable Unavailable STEEL, M DAMASO ROUGH RICE TENDER Unavailable Unavailable STEEL, M DAMASO ROUGH RICE TENDER Unavailable Unavailable STEEL, M DAMASO ROUGH RICE TENDER Unavailable Unavailable STEEL, M DAMASO ROUGH RICE TENDER Unavailable Unavailable STEEL, M DAMASO ROUGH RICE TENDER Unavailable Unavailable STEEL, M DAMASO ROUGH RICE TENDER Unavailable Unavailable STEEL, M DAMASO ROUGH RICE TENDER Unavailable Unavailable STEEL, M DAMASO ROUGH RICE TENDER Unavailable Unavailable STEEL, M DAMASO ROUGH RICE TENDER Unavailable Unavailable STEEL, M DAMASO ROUGH RICE TENDER Unavailable Unavailable STEEL, M DAMASO ROUGH RICE TENDER Unavailable Unavailable STEEL, M DAMASO ROUGH RICE TENDER Unavailable Unavailable STEEL, M DAMASO ROUGH RICE TENDER Unavailable Unavailable STEEL, M DAMASO ROUGH RICE TENDER Unavailable Unavailable STEEL, M DAMASO ROUGH RICE TENDER Unavailable Unavailable STEEL, M DAMASO ROUGH RICE TENDER Unavailable Unavailable STEEL, M DAMASO ROUGH RICE TENDER Unavailable Unavailable STEEL, M DAMASO ROUGH RICE TENDER Unavailable Unavailable STEEL, M DAMASO ROUGH RICE TENDER Unavailable Unavailable Nydia Cruz MD Unavailable Unavailable [...] Unavailable Unavailable Nydia Cruz MD Unavailable Unavailable Nyida Cruz MD Unavailable Unavailable Nydia Cruz MD [...] Unavailable Unavailable Nydia Cruz MD Unavailable Unavailable Nyida Cruz MD Unavailable Unavailable Nydia Cruz MD [...] M GENARO PA Unavailable Unavailable ANDREE, M GNEARO PA Unavailable Unavailable ANDREE, M GENARO PA [...] is protected by Article 27-F of the [facility] Public Health law. If you continue you may have access to information: Regarding HIV / AIDS; Provided by facilities licensed or operated by the [facility] Office of Mental Health; or Provided by the [facility] Office for People With Developmental Disabilities. If such information is present, then the following [facility] mandated warning applies: This information has been [...] law may result in a fine or long-term sentence or both. A general authorization for the release of medical or other information is NOT sufficient authorization for further disc losure. Encounters Encounter Providers Location Date Indications Data Source(s ) Outpatient Attender: GENARO REHMAN Physical Therapy 07/11 10:00:00 AM EST [facility] ([facility]) Outpatient Attender: DAMASO STEEL NP [place] [facility] 07/02 09:40:00 AM EST [facility] Outpatient Attender: GENARO REHMAN Physical Therapy 06/10 09:15:00 AM EST [facility] ([facility]) Outpatient Attender: Lynnette Cruz MD Main office [facility] 05/24/2020 09:00:00 AM EDT [facility] ([facility] Outpatient Attender: DAMASO STEEL NP [place] [facility] 05/21 10:45:00 AM EDT [facility] ([facility] OFFICE OUTPATIENT NEW 30 MINUTES Attender: GENARO REHMAN Phys ical Therapy 05/08/2020 08:30:00 AM EDT [facility] ([facility]) Outpatient Attender: DAMASO STEEL NP [place] [facility] 04/26 10:45:00 AM EDT [facility] ([facility] Outpatient Attender: DAMASO MILVIA BOOTHE [place] [facility] 04/13 11:30:00 AM EDT [facility] ([facility] Medications Medication Brand Name Start Date Product Form Dose Route Admi nistrative Instructions Pharmacy Instructions Status Indications Reaction Description Data Source(s) meloxicam 15 MG Oral Tablet Meloxicam 06/19/2020 12:00:00 AM EST ORAL completed [facility] ([facility] 15 mg 06/19/2020 12:00:00 [...] 05/08/2020 12:00:00 AM EDT ORAL completed [facility] ([facility]) meloxicam 7.5 MG Oral Tablet MELOXICAM 05/08/2020 [...] relationship to whitney Policy Whitney Plan Information [facility] PLAN [facility] [id number] SP [id number] [facility] PLAN [facility] [id number] SP [id number] [facility] I [id number] Self [id number] [facility] Community Plan Commercial Self MEDICAID [id number] SP [id number] [facility] S [id number] S [id number] [facility] COMM[facility] PLAN [facility] [id number] SP [id number] [facility]) P [id number] S [id number] Surgeries/Procedures Procedure Description Date Indications Data Source(s) THERAPEUTIC PX 1/> AREAS EACH 15 MIN EXERCISES 12:00:00 AM EST [facility] ([facility]) MANUAL THERAPY TQS 1/> REGIONS EACH 15 MINUTES 12:00:00 AM EST [facility] ([facility]) APPL MODALITY 1/> AREAS ELEC STIMJ EA 15 MIN 0 12:00:00 AM EST [facility] ([facility] THERAPEUTIC PX 1/> AREAS EACH 15 MIN EXERCISES 12:00:00 AM EST [facility] ([facility] MANUAL THERAPY TQS 1/> REGIONS EACH 15 MINUTES 12:00:00 AM EST [facility] ([facility] APPL MODALITY 1/> AREAS ELEC STIMJ EA 15 MIN 0 12:00:00 AM EST [facility] ([facility] THERAPEUTIC PX 1/> AREAS EACH 15 MIN EXERCISES 12:00:00 AM EST [facility] ([facility] MANUAL THERAPY TQS 1/> REGIONS EACH 15 MINUTES 12:00:00 AM EST [facility] ([facility] Magnetic Resonance Angiogtaphy Head W/O Contrast Material(S) 06/12/2020 12:00:00 AM EST [facility] ([facility] Magnetic Resonance Angiogtaphy Head W/O Contrast Material(S) 06/12/2020 12:00:00 AM EST [facility] ([facility] MRI BRAIN BRAIN STEM W/O CONTRAST MATERIAL 06/12/2020 12:00:00 AM EST [facility] ([facility] MRI BRAIN BRAIN STEM W/O CONTRAST MATERIAL 06/12/2020 12:00:00 AM EST [facility] ([facility] ) APPL MODALITY 1/> AREAS ELEC STIMJ EA 15 MIN 0 12:00:00 AM EDT [facility] ([facility] THERAPEUTIC PX 1/> AREAS EACH 15 MIN EXERCISES 12:00:00 AM EDT [facility] ([facility] MANUAL THERAPY TQS 1/> REGIONS EACH 15 MINUTES 12:00:00 AM EDT [facility] ([facility] Physical Therapy Eval - Low Complexity 05/30/2020 12:0 0:00 AM EDT [facility] ([facility] Needle electromyography, each extremity, with related paraspinal areas, when performed, done with nerve conduction, amplitude and latency/velocity study; complete, five or more muscles studied, innervated by three or more nerves or four or more spinal levels (list separately in addition to the code for primary procedure). 05/30/2020 12:00:00 AM EDT [facility] T ([facility] ) Needle electromyography, each extremity, with related paraspinal areas, when performed, done with nerve conduction, amplitude and latency/velocity study; complete, five or more muscles studied, innervated by three or more nerves or four or more spinal levels (list separately in addition to the code for primary procedure). 05/30/2020 12:00:00 AM EDT [facility] T ([facility] ) Nerve Conduction 9-10 Studies 05/30/2020 12:00:00 AM E DT [facility] ([facility] Results ID Date Data Source [id number] 07/10/2020 02:27:00 PM EST [facility] ([facility]) Name Value Range Interpretation Code Description Data Suze rce(s) Supporting Document(s) Creatinine For GFR 0.77 mg/dL 0.55-1.30 [facility] ([facility]) Glomerular Filtration Rate Laboratory test result [facility] ([facility]) <content>Units are mL/min/1.73 m2</content>
<content></content>
<content>Chronic Kidney Disease Staging per NKF:</content>
<content></content>
<content>Stage I & II GFR >=60 Normal to Mildly Decreased</content>
<content>Stage III GFR 30- 59 Moderately Decreased</content>
<content>Stage IV GFR 15-29 Severely Decreased</content>
<content>Stage V GFR <15 Very Little GFR Left</content>
<content>ESRD GFR <15 on COMPOUNDING PHARMACY TECHNICIAN</content>
<content></content> ID Date Data Source [id number] 07/10/2020 02:27:00 PM EST [facility] ([facility] Name Value Range Interpretation Code Description Data Suze rce(s) Supporting Document(s) Urea nitrogen [Mass/volume] in Serum or Plasma 13 mg/dL 7-18 [facility] ([facility] ID Date Data Source [id number] 07/10/2020 02:27:00 PM EST [facility] ([facility] Name Value Range Interpretation Code Description Data Suze rce(s) Supporting Document(s) Creatinine For GFR 0.77 mg/dL 0.55-1.30 Normal (applies to non -numeric results) DWAY[facility] ([facility] Glomerular Filtration Rate Laboratory test result Normal (applies to non- numeric results) [facility] ([facility] ) <content>Units are mL/min/1.73 m2</content>
<content></content>
<content>Chronic Kidney Disease Staging per NKF:</content>
<content></content>
<content>Stage I & II GFR >=60 Normal to Mildly Decreased</content>
<content>Stage III GFR 30- 59 Moderately Decreased</content>
<content>Stage IV GFR 15-29 Severely Decreased</content>
<content>Stage V GFR <15 Very Little GFR Left</content>
<content>ESRD GFR <15 on COMPOUNDING PHARMACY TECHNICIAN</content>
<content></content> ID Date Data Source [id number] 07/10/2020 02:27:00 PM EST [facility] ([facility] Name Value Range Interpretation Code Description Data Suze rce(s) Supporting Document(s) Urea nitrogen [Mass/volume] in Serum or Plasma 13 mg/dL 7 -18 Normal (applies to non-numeric results) [facility] ([facility]) Procedure Vital Signs ID Date Data Source UNK Name Value Range Interpretation Code Description Data Source(s) Oxygen saturation in Arterial blood by Pulse oximetry 98 % 98 % [facility] ([facility] Body mass index (BMI) [Ratio] 30.7 kg/m2 30.7 k g/m2 DW[facility] ([facility] [place] body weight 110 [lb_av] 110 [lb_av] CRISTOFEREN T ([facility] Body weight 168.00 [lb_av] 168.00 [lb_av] EMMETT T ([facility] Body height 62 [in_i] [...] Body temperature 97.7 [degF] 97.7 [degF] [facility] ([facility] [place] body weight 110 [lb_av] 110 [lb_av] [facility] T ([facility] Body mass index (BMI) [Ratio] 31.1 kg/m2 31.1 k g/m2 [facility] ([facility] Body weight 170.00 [lb_av] 170.00 [lb_av] MED[facility] T ([facility] ) Body height 62 [in_i] 62 [in_i] [facility] ([facility] 5'2" Respiratory rate 12 /min 12 /min [facility] ( [facility] ) Oxygen saturation in Arterial blood by Pulse oximetry 98 % 98 % [facility] ([facility] Body mass index (BMI) [Ratio] 31.3 kg/m2 31.3 k g/m2 [facility] ([facility] [place] body weight 110 [lb_av] 110 [lb_av] MEDEN [...] [Ratio] 31.3 kg/m2 31.3 k g/m2 [facility] ([facility]) Body weight 171.00 [lb_av] 171.00 [lb_av] [facility] T ([facility]) Body height 62 [in_i] 62 [in_i] [facility] ([facility]) 5'2" Body temperature 96.0 [degF] 96.0 [degF] [facility] ([facility]) Oxygen saturation in Arterial blood by Pulse oximetry 98 % 98 % DWAYNE ([facility] ([place]), (Room Air) Body mass index (BMI) [Ratio] 31.1 kg/m2 31.1 k g/m2 [facility] ([facility] [place] body weight 110 [lb_av] 110 [lb_av] MED[facility] T ([facility] Body weight 170.00 [lb_av] 170.00 [lb_av] MED[facility] T ([facility] Body height 62 [in_i] 62 [in_i] [facility] ([facility] 5'2" Respiratory rate 17 [...] k g/m2 [facility] ([facility] [place] body weight 110 [lb_av] 110 [lb_av] MEDEN T ([facility] Body weight 173.00 [lb_av] 173.00 [lb_av] MEDEN T ([facility] Body height 62 [in_i] 62 [in_i] [facility] ([facility] 5'2" Respiratory rate 18 /min 18 /min [facility] ( [facility] Heart rate 96 /min 96 /min [facility] ([facility] Body temperature 98.5 [degF] 98.5 [degF] [facility] ([facility] Diastolic blood pressure 82 mm[Hg] 82 mm[Hg] [facility] ([facility] Systolic blood pressure 130 mm[Hg] 130 mm[Hg] M EDENT ([facility] Diastolic blood pressure 88 mm[Hg] 88 mm[Hg] [facility] ([facility] Systolic blood pressure 150 mm[Hg] 150 mm[Hg] M [facility] ([facility]
[2020-09-13 22:05] LABS: BLOOD UREA NITROGEN 13 MG/DL (7-18); CALCIUM LEVEL 9.1 MG/DL (8.5-10.1); CARBON DIOXIDE LEVEL 29 MEQ/L (21-32); CHLORIDE LEVEL 105 MEQ/L (98-107); CK-MB VALUE MASS < 1.0 NG/ML (<3.6); CPK CREATINE PHOSPHOKINASE 102 U/L (26-192); CREATININE FOR GFR 0.74 MG/DL (0.55-1.30); GLOMERULAR FILTRATION RATE > 60.0 (>58); GLUCOSE, FASTING 87 MG/DL (70-100); MB/CK RELATIVE INDEX 0.98 (< OR =4); POTASSIUM SERUM 4.2 MEQ/L (3.5-5.1); SODIUM LEVEL 139 MEQ/L (136-145); TROPONIN I < 0.02 NG/ML (< 0.10)
[2020-09-13] MEDS ORDERED: NS 1,000 ML IV ONE (23:00)
[2020-09-13] MEDS ORDERED: KETOROLAC 30 MG/ML 1ML VIAL IV ONE (23:00)
[2020-09-14] MEDS ORDERED: TESS100C PO (01:51)
[2020-09-14] MEDS ORDERED: BENZONATATE 100 MG CAP PO ONE (02:00)
[2020-09-14 02:30] VITALS: BP 133/74
--- NOTE | 2020-09-14 19:30 | ECGEPIP ---
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
== END 2020-09-14 02:40 | disposition home or self-care (01) ==
LOC: M ED 20:42
DX: J06.9 Acute upper respiratory infection, unspecified (principal); B34.8 Other viral infections of unspecified site; Z20.822 Contact with and (suspected) exposure to COVID-19; R11.0 Nausea
CPT/HCPCS: 71045; 80048; 82550; 82553; 85025; 87486; 87581; 87633; 87798; 93005; 93041; 94760; 96361; 96374; 99285; J1885

== ENCOUNTER → 2021-01-21 | Outpatient (CLI) | payer OTHER ==
[~2021-01-21] MED LIST: ASPE4PAD TOP; CYMB1CAP5 PO; METH-1165 PO; NAPR-837 PO; PANT40TA29 PO; TESS100C PO; VERA80TA3 PO
--- NOTE | 2021-01-21 09:45 | REP ---
INDICATION: EPIGASTRIC PAIN COMPARISON: None. TECHNIQUE: Real time merida scale ultrasound examination using curved array transducer. FINDINGS: Liver is normal in contour, size, and echogenicity without focal hepatic lesions identified. Pancreas is incompletely evaluated due to interposed bowel gas. The gallbladder is normal and without gallstones, wall thickening, or pericholecystic fluid. No biliary ductal dilatation is appreciated and the common bile duct measures 7 mm diameter. Right kidney measures 13.0 x 5.5 x 4.6 cm without hydronephrosis or obvious abnormality. Malrotation and possible partial duplication cannot be excluded. No ascites in the visualized right upper quadrant. IMPRESSION: Essentially normal limited right upper quadrant ultrasound <Electronically signed by Iván Macdonald > 01/21/21 [id number]
== END ==
LOC: M RAD 08:51
PROVIDERS: ATTEND Internal Medicine Gastroenterology
DX: R10.13 Epigastric pain (principal)

== ENCOUNTER 2021-03-01 16:01 | Emergency (ER) | payer OTHER ==
[~2021-03-01] VITALS: Ht 157.5 cm; Wt 77.3 kg
[2021-03-01] MEDS ORDERED: LANS30CA93 (16:17)
--- NOTE | 2021-03-01 16:42 | REP ---
INDICATION: CHEST PAIN. COMPARISON: 09/13/2020. TECHNIQUE: Single portable AP view of the chest was performed. FINDINGS: There is no acute infiltrate or pulmonary edema. Lungs are clear. The heart is not significantly enlarged. The mediastinal silhouette is unremarkable. The visualized osseous structures are intact. IMPRESSION: No acute pulmonary disease. <Electronically signed by Glen Deleon > 03/01/21 [id number]
[2021-03-01 17:02] LABS: BASO % 0.5 % (0.0-1.0); EOS # 0.1 10^3/uL (0.0-0.5); EOS % 1.8 % (0.0-3.0); HEMATOCRIT 42.3 % (36.0-47.0); HEMOGLOBIN 13.8 g/dl (12.0-15.5); LYMPH # 1.6 10^3/uL (1.5-5.0); LYMPH % 21.7 % (24.0-44.0); MEAN CORPUSCULAR HGB CONC 32.6 g/dl (32.0-36.5); MEAN CORPUSCULAR VOLUME 85.8 fl (80.0-96.0); MONO # 0.6 10^3/uL (0.0-0.8); MONO % 7.7 % (2.0-8.0); NEUTROPHILS % 67.9 % (36.0-66.0); PLATELET COUNT, AUTOMATED 305 10^3/uL (150-450); RED BLOOD COUNT 4.93 10^6/uL (4.00-5.40); WHITE BLOOD COUNT 7.4 10^3/uL (4.0-10.0)
[2021-03-01 17:21] LABS: BLOOD UREA NITROGEN 13 MG/DL (7-18); CALCIUM LEVEL 9.2 MG/DL (8.5-10.1); CARBON DIOXIDE LEVEL 30 MEQ/L (21-32); CHLORIDE LEVEL 104 MEQ/L (98-107); CREATININE FOR GFR 0.69 MG/DL (0.55-1.30); GLOMERULAR FILTRATION RATE > 60.0 (>58); GLUCOSE, FASTING 84 MG/DL (70-100); POTASSIUM SERUM 4.2 MEQ/L (3.5-5.1); SODIUM LEVEL 140 MEQ/L (136-145)
[2021-03-01] MEDS ORDERED: SUMAtriptan SUCCINATE 6 MG/0.5 ML VIAL SC ONE (17:35)
[2021-03-01] MEDS ORDERED: KETOROLAC 30 MG/ML 1ML VIAL IV ONE (17:35)
[2021-03-01] MEDS ORDERED: ONDANSETRON 4MG/2ML VIAL IV ONE (17:35)
[2021-03-01] MEDS ORDERED: NS 1,000 ML IV ONE (19:55)
[2021-03-01 21:00] VITALS: BP 143/91
--- NOTE | 2021-03-02 21:21 | ECGEPIP ---
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 Order Number: [id number] Reading MD: Parvin Doty Measurements Intervals [place] Rate: 69 P: 8 RI: 160 QRS: 9 QRSD: 68 T: 24 QT: 402 QTc: 430 Interpretive Statements Normal sinus rhythm decreased rate 09/13/20 Electronically Signed on 03-02-2021 21:21:34 EDT by Parvin Doty
--- NOTE | 2021-03-02 21:24 | ECGEPIP ---
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
== END 2021-03-01 22:29 | disposition home or self-care (01) ==
LOC: M ED 16:01
DX: R07.89 Other chest pain (principal); E86.0 Dehydration; R11.0 Nausea; R05 Cough; R42 Dizziness and giddiness; I10 Essential (primary) hypertension; K21.9 Gastro-esophageal reflux disease without esophagitis; F41.9 Anxiety disorder, unspecified; F17.200 Nicotine dependence, unspecified, uncomplicated; Z79.899 Other long term (current) drug therapy
CPT/HCPCS: 71045; 80048; 85025; 87798; 93005; 93041; 94760; 96361; 96372; 96374; 96375; 99285; J1885; J2405

== ENCOUNTER → 2021-05-17 | Outpatient (CLI) | payer OTHER ==
[~2021-05-17] MED LIST changes: +LANS30CA93
--- NOTE | 2021-05-17 11:52 | REP ---
INDICATION: ABD TERRAZAS GB DZ. COMPARISON: Comparison study is from March 28, 2011. TECHNIQUE/RADIOTRACER AND DOSE: 6.6 mCi of Technetium-99m mebrofenin was injected and sequential anterior images are acquired. 65 minutes after the mebrofenin injection, the patient consumed 8 ounces Ensure and an additional 60 minutes of imaging was acquired. Regions of interest are plotted around the gallbladder. FINDINGS: The initial hepatocellular parenchymal uptake phase is normal and homogeneous. Intra- and extra-hepatic bile ducts are labeled by the 10-minute image. The gallbladder is first labeled on the 10-minute image. There is normal washout from the liver parenchyma into the gallbladder and small intestine on subsequent images. The gallbladder ejection fraction is 98%. Values greater than 35% are considered normal with this technique. IMPRESSION: Normal hepatobiliary scan and normal gallbladder ejection fraction. <Electronically signed by Joselito Mckeon > 05/17/21 [id number]
== END ==
LOC: M RAD 07:49
PROVIDERS: ATTEND Internal Medicine Gastroenterology
DX: K82.8 Other specified diseases of gallbladder (principal)
CPT/HCPCS: 78227; A9537

== ENCOUNTER → 2021-05-30 | Outpatient (CLI) | payer OTHER ==
[~2021-05-30] MED LIST changes: +CITA10TA5 PO; +CITA20TA7 PO
== END ==
LOC: M LABSMTC 09:37
PROVIDERS: ATTEND Anesthesiology
DX: Z01.818 Encounter for other preprocedural examination (principal); Z11.52 Encounter for screening for COVID-19

== ENCOUNTER 2021-06-04 11:06 | Day surgery (SDC) | payer OTHER ==
[~2021-06-04] VITALS: Ht 157.5 cm; Wt 78.5 kg
[~2021-06-04 11:06] MED LIST changes: +NS 1,000 ML IV ONE
--- OUTSIDE RECORDS SUMMARY | 2021-06-04 11:13 | CCD | Continuity of Care Document ---
Author Author Meagan AGUILA RPA Organization Unknown Address [address] [place] [address] Phone [phone] Care Team Providers Care Electronic Publishing Specialist Name Role Phone [facility] Orthopedics - Orthopedic/Phys/Osteo AUTM [phone] Donald Shaver AUTM [phone] Problems Active Problems Provider Date Moderate recurrent major depression Jake Aguila RPA O nset: 04/24/2021 Migraine Jake Aguila RPA Onset: 04/24/2021 Social History Type Date Description Comments Sex Unknown Tobacco Use Start: Unknown End: Unknown Patient is a former smoker Allergies, Adverse Reactions, Alerts Description No Known Drug Allergies Medications Active Medications SIG Qnty Indications Ordering Provide r Date Citalopram Hydrobromide 10mg Table ts 1 by mouth every day at bedtime 30tabs Guzman Luna D.O. , FAAFP 04/24/2021 Triamcinolone Acetonide 0.5% Cream apply topically to rash on left neck twice a day 30gm Maria Del Rosario Engle FNP- 10/12/[address] 1 by mouth every day 30tabs Maria Del Rosario Worthington FNP-LI 0 Verapamil HCL 80mg Tablets 1 by mouth bid Donald Shaver Immunizations Description No Information Available Vital Signs Date Vital Result Comment 04/24/2021 10:58am BP Systolic 128 mmHg BP Diastolic 88 mmHg Body Temperature 98.0 F Heart Rate 98 /min Respiratory Rate 16 /min Height 62 inches 5'2" Weight 174.00 lb [place] Body Weight 110 lb BMI (Body Mass Index) 31.8 kg/m2 O2 % BldC Oximetry 98 % 10/12/2020 11:16am BP Systolic 136 mmHg BP Diastolic 88 mmHg Body Temperature 97.7 F Heart Rate 92 /min Respiratory Rate 18 /min Height 62 inches 5'2" Weight 168.00 lb [place] Body Weight 110 lb BMI (Body Mass Index) 30.7 kg/m2 O2 % BldC Oximetry 98 % Results Test Acquired Date Facility Test Result H/L Range Note Laboratory test finding 03/01/2021 [facility] (Interface) [phone] Troponin I <pending> iSTAT Troponin 0.00 NG/ML Normal 0.00-0.08 Respiratory Panel 03/01/2021 [facility] (I nterface) [phone] Respiratory Panel This respiratory <SEE NOTE> 1 Laboratory test finding 03/01/2021 [facility] (Interface) [phone] Troponin I <pending> iSTAT Troponin 0.00 NG/ML Normal 0.00-0.08 CBC With Differential 03/01/2021 [facility] (Interface) [phone] White Blood Count 7.4 10 Normal 4.0-10.0 Red Blood Count 4.93 10 Normal 4.00-5.40 Hemoglobin 13.8 g/dL Normal 12.0-15.5 Hematocrit 42.3 % Normal 36.0-47.0 Mean Corpuscular Volume 85.8 fl Normal 80.0-96.0 Mean Corpuscular Hemoglobin 28.0 pg Normal 27.0-33.0 Mean Corpuscular HGB Conc 32.6 g/dL Normal 32.0-36.5 Red Cell Distribution Width 14.0 % Normal 11.5-14.5 Platelet Count, Automated 305 10 Normal 150-450 Neutrophils % 67.9 % High 36.0-66.0 Lymph % 21.7 % Low 24.0-44.0 [place] % 7.7 % Normal 2.0-8.0 Eos % 1.8 % Normal 0.0-3.0 Baso % 0.5 % Normal 0.0-1.0 Immature Granulocyte % 0.4 % Normal 0-3.0 Nucleated Red Blood Cell % 0.0 % Normal 0-0 Neutrophils # 5.0 10 Normal 1.5-8.5 Lymph # 1.6 10 Normal 1.5-5.0 [place] # 0.6 10 Normal 0.0-0.8 Eos # 0.1 10 Normal 0.0-0.5 Baso # 0.0 10 Normal 0.0-0.2 Basic Metabolic Profile 03/01/2021 [facility] (Interface) [phone] Glucose, Fasting 84 mg/dL Normal 70-100 Blood Urea Nitrogen 13 mg/dL Normal 7-18 Creatinine For GFR 0.69 mg/dL Normal 0.55-1.30 Glomerular Filtration Rate > 60.0 Normal >58 2 Sodium Level 140 mEq/L Normal 136-145 Potassium Serum 4.2 mEq/L Normal 3.5-5.1 Chloride Level 104 mEq/L Normal 98-107 Carbon Dioxide Level 30 mEq/L Normal 21-32 Anion Gap 6 mEq/L Low 8-16 Calcium Level 9.2 mg/dL Normal 8.5-10.1 Istat Chem8+ Panel 12/02/2020 [facility] (I nterface) [phone] iSTAT HCT 45.0 % Normal 38.0-51.0 iSTAT Glucose 125 mg/dL High 70-105 iSTAT Sodium 140 mEq/L Normal 136-145 iSTAT Potassium 3.3 mEq/L Low 3.5-5.1 iSTAT CA++ 4.9 mg/dL Normal 4.5-5.3 iSTAT Chloride 104 mEq/L Normal 98-109 iSTAT Co2 26.0 MM/L Normal 23.0-27.0 iSTAT BUN 18 mg/dL Normal 8-26 iSTAT Creatinine 0.7 mg/dL Normal 0.6-1.3 CBC With Auto Differential OB 12/02/2020 [facility] (Interface) [phone] White Blood Count 8.0 10 Normal 4.0-10.0 Red Blood Count 4.66 10 Normal 4.00-5.40 Hemoglobin 13.0 g/dL Normal 12.0-15.5 Hematocrit 41.0 % Normal 36.0-47.0 Mean Corpuscular Volume 88.0 fl Normal 80.0-96.0 Mean Corpuscular Hemoglobin 27.9 pg Normal 27.0-33.0 Mean Corpuscular HGB Conc 31.7 g/dL Low 32.0-36.5 Red Cell Distribution Width 14.0 % Normal 11.5-14.5 Platelet Count, Automated 305 10 Normal 150-450 Neutrophils % 59.0 % Normal 36.0-66.0 Lymph % 29.5 % Normal 24.0-44.0 [place] % 9.0 % High 2.0-8.0 Eos % 1.5 % Normal 0.0-3.0 Baso % 0.5 % Normal 0.0-1.0 Immature Granulocyte % 0.5 % Normal 0-3.0 Nucleated Red Blood Cell % 0.0 % Normal 0-0 Neutrophils # 4.8 10 Normal 1.5-8.5 Lymph # 2.4 10 Normal 1.5-5.0 [place] # 0.7 10 Normal 0.0-0.8 Eos # 0.1 10 Normal 0.0-0.5 Baso # 0.0 10 Normal 0.0-0.2 Liver Profile 12/02/2020 [facility] [phone] Ast/Sgot 17 U/L Normal 7-37 Alt/SGPT 28 U/L Normal 12-78 Alkaline Phosphatase 117 U/L Normal 45-117 Bilirubin,Total 0.5 mg/dL Normal 0.2-1.0 Bilirubin,Direct 0.2 mg/dL Normal 0.0-0.2 Total Protein 7.7 GM/DL Normal 6.4-8.2 Albumin 3.7 GM/DL Normal 3.2-5.2 Albumin/Globulin Ratio 0.9 Low 1.2-2.2 Laboratory test finding 12/02/2020 [facility] (Interface) [phone] Lipase 144 U/L Normal 73-393 Ua W/ Reflex To Culture 12/02/2020 [facility] (Interface) [phone] Appearance, Urine RFX CLOUDY High Clear Color, Urine RFX YELLOW Normal Yellow PH,Urine RFX 7.0 units Normal 5.0-9.0 Specific [place] Ur Auto RFX 1.018 Normal 1.002-1.035 Protein, Urine Auto RFX NEGATIVE mg/dL Normal Negative Glucose, Urine (Ua) Auto RFX NEGATIVE mg/dL Normal Negative Ketone, Urine Auto RFX NEGATIVE mg/dL Normal Negative Urobilinogen, Urine Auto RFX 0.2 mg/dL Normal 0.0-2.0 Bilirubin, Urine Auto RFX NEGATIVE Normal Negative Nitrite, Urine Auto RFX NEGATIVE Normal Negative Leukocyte Esterase Ur Auto RFX TRACE High Negative Blood, Urine Blood RFX NEGATIVE Normal Negative WBC, Urine Auto RFX 11 /HPF High 0-3 RBC, Urine Auto RFX 3 /HPF Normal 0-3 Bacteria, Urine Auto RFX NEGATIVE Normal Negative Squam Epithelial Cell Ur Aurfx 0 /HPF Normal 0-6 Mucus, Urine RFX SMALL Normal Negative Hyaline Cast, Urine Auto RFX 0 /LPF Normal 0-1 Amorphous Sediment RFX SMALL High Negative Reflex Urine Culture 12/02/2020 [facility] ( [facility]) [phone] Reflex Urine Culture FULL REPORT IN L <SEE NOTE> Norm al 3 1 This respiratory PCR panel d etects Influenza A H1, H3 and 2009 H1 viruses, Influenza B virus, Resp iratory Syncytial Virus, Human metapneumovirus, Parainfluenza virus 1, 2, 3 and 4, Adenovirus, Rhinovirus/Enterovirus, Coronavirus HKU1, NL63, OC43, 229E and SARS-CoV-2 (COVID 19), Bordetella pertussis, Bordetella parapertussis, Mycoplasma pneumoniae and Chlamydia pneumoniae. NEGATIVE by MULTIPLEXED NUCLEIC ACID PCR SARS-CoV-2 (COVID 19) NEGATIVE - SARS-CoV-2 (COVID19) 2 Units are mL/min/1.73 m2 Chronic Kidney Disease Staging per NKF: Stage I & II GFR >=60 Normal to Mildly Decreased Stage III GFR 30-59 Moderately Decreased Stage IV GFR 15-29 Severely Decreased Stage V GFR <15 Very Little GFR Left ESRD GFR <15 on HUMAN RESOURCES OPERATIONS DIRECTOR 3 FULL REPORT IN LAB NOTES (eC W and Medent). NO GROWTH CLINICAL SIGNIFICANCE 1 ORGANISM Procedures Date Code Description Status 04/24/2021 27496 Office/Outpatient Established Mo d MDM 30-39 Min Completed Medical Devices Description No Information Available Encounters Type Date Location Provider Dx Diagnosis Office Visit 04/24/2021 11:15a [place] [facility] Jake Aguila, RP A G43.909 Migraine, unsp, not intractable, without status migrainosus F33.1 Major depressive disorder, r ecurrent, moderate Assessments Date Code Description Provider 04/24/2021 G43.909 Migraine, unspecifie d, not intractable, without status migrainosus Jake Aguila, RPA 04/24/2021 F33.1 Major depressive disorder, recur rent, moderate Jake Aguila, RPA Plan of Treatment No Information Available Functional Status Description No Information Available Mental Status Description No Information Available Referrals Description No Information Available
--- OUTSIDE RECORDS SUMMARY | 2021-06-04 11:13 | CCD | Continuity of Care Document ---
Author Author Meagan AGUILA RPA Organization Unknown Address [address] [place] [address] Phone [phone] Care Team Providers Care Head Of Operation And Logistics Name Role Phone [facility] Orthopedics - Orthopedic/Phys/Osteo AUTM [phone] Problems Active Problems Provider Date Insomnia Jake Aguila RPA Onset: 05/08/2021 Moderate recurrent major depression Jake Aguila RPA O nset: 04/24/2021 Migraine Jake Aguila RPA Onset: 04/24/2021 Social History Type Date Description Comments Sex Unknown Tobacco Use Start: Unknown End: Unknown Patient is a former smoker Allergies and adverse reactions Description No Known Drug Allergies Medications Active Medications SIG Qnty Indications Ordering Provide r Date Mupirocin 2% Ointment top twice a day x 10 days 45gms Guzman Luna D.O., FAAFP Citalopram Hydrobromide 20mg Table ts 1 by mouth every day at bedtime (replace the 10mg dose) 30tabs Guzman Luna D.O., FAAFP 05/08/2021 Triamcinolone Acetonide 0.5% Cream apply topically to rash on left neck twice a day 30gm Maria Del Rosario Engle FNP-BC 10/12/[address] 1 by mouth every day 30tabs Guzman Luna D.O., FAAFP 07/2020 Verapamil HCL 80mg Tablets 1 by mouth twice a day 30tabs Guzman Luna D.O., FAAFP History Medications Citalopram Hydrobromide 10mg Table ts 1 by mouth every day at bedtime 30tabs Guzman Luna D.O. , FAAFP 04/24/2021 - 05/08/2021 Immunizations CPT Code Status Date Vaccine Lot # [id number] Refused 05/24/2021 Influenza Virus Vaccine, Quadrivalent, Slit Virus, Im Use 3Y & Up Vital Signs Date Vital Result Comment 05/24/2021 2:55pm BP Systolic 118 mmHg BP Diastolic 84 mmHg Body Temperature 98.2 F Heart Rate 87 /min Respiratory Rate 16 /min Height 62 inches 5'2" Weight 176.00 lb [place] Body Weight 110 lb BMI (Body Mass Index) 32.2 kg/m2 O2 % BldC Oximetry 97 % 05/08/2021 11:37am BP Systolic 114 mmHg BP Diastolic 80 mmHg Body Temperature 98.0 F Heart Rate 80 /min Respiratory Rate 16 /min Height 62 inches 5'2" Weight 175.00 lb [place] Body Weight 110 lb BMI (Body Mass Index) 32.0 kg/m2 O2 % BldC Oximetry 96 % Results Test Acquired Date Facility Test Result H/L Range Note Laboratory test finding 05/24/2021 [facility] [place] Aerobic Bacterial Culture <pending> Laboratory test finding 03/01/2021 [facility] (Interface) [phone] Troponin I <pending> iSTAT Troponin 0.00 NG/ML Normal 0.00-0.08 Respiratory Panel 03/01/2021 [facility] (I nterface) [phone] Respiratory Panel This respiratory <SEE NOTE> 1 Laboratory test finding 03/01/2021 [facility] (Interface) [phone] Troponin I <pending> iSTAT Troponin 0.00 NG/ML Normal 0.00-0.08 CBC With Differential 03/01/2021 [facility] (Interface) [phone] White Blood Count 7.4 10 Normal 4.0-10.0 [...] 36.0-66.0 Lymph % 21.7 % Low 24.0-44.0 [place] % 7.7 % Normal 2.0-8.0 Eos % 1.8 % Normal 0.0-3.0 Baso % 0.5 % Normal 0.0-1.0 Immature Granulocyte % 0.4 % Normal 0-3.0 Nucleated Red Blood Cell % 0.0 % Normal 0-0 Neutrophils # 5.0 10 Normal 1.5-8.5 Lymph # 1.6 10 Normal 1.5-5.0 [place] # 0.6 10 Normal 0.0-0.8 Eos # 0.1 10 Normal 0.0-0.5 Baso # 0.0 10 Normal 0.0-0.2 Basic Metabolic Profile 03/01/2021 [facility] (Interface) [phone] Glucose, Fasting 84 mg/dL Normal 70-100 Blood [...] mg/dL Normal 8.5-10.1 Istat Chem8+ Panel 12/02/2020 [facility] (I nterface) [phone] iSTAT HCT 45.0 % Normal 38.0-51.0 iSTAT Glucose 125 mg/dL High 70-105 iSTAT Sodium 140 mEq/L Normal 136-145 iSTAT Potassium 3.3 mEq/L Low 3.5-5.1 iSTAT CA++ 4.9 mg/dL Normal 4.5-5.3 iSTAT Chloride 104 mEq/L Normal 98-109 iSTAT Co2 26.0 MM/L Normal 23.0-27.0 iSTAT BUN 18 mg/dL Normal 8-26 iSTAT Creatinine 0.7 mg/dL Normal 0.6-1.3 CBC With Auto Differential OB 12/02/2020 [facility] ([facility]) [phone] White Blood Count 8.0 10 Normal 4.0-10.0 [...] 36.0-66.0 Lymph % 29.5 % Normal 24.0-44.0 [place] % 9.0 % High 2.0-8.0 Eos % 1.5 % Normal 0.0-3.0 Baso % 0.5 % Normal 0.0-1.0 Immature Granulocyte % 0.5 % Normal 0-3.0 Nucleated Red Blood Cell % 0.0 % Normal 0-0 Neutrophils # 4.8 10 Normal 1.5-8.5 Lymph # 2.4 10 Normal 1.5-5.0 [place] # 0.7 10 Normal 0.0-0.8 Eos # 0.1 10 Normal 0.0-0.5 Baso # 0.0 10 Normal 0.0-0.2 Liver Profile 12/02/2020 [facility] (I [place]terface) [phone] Ast/Sgot 17 U/L Normal 7-37 Alt/SGPT 28 U/L Normal 12-78 Alkaline Phosphatase 117 U/L Normal 45-117 Bilirubin,Total 0.5 mg/dL Normal 0.2-1.0 Bilirubin,Direct 0.2 mg/dL Normal 0.0-0.2 Total Protein 7.7 GM/DL Normal 6.4-8.2 Albumin 3.7 GM/DL Normal 3.2-5.2 Albumin/Globulin Ratio 0.9 Low 1.2-2.2 Laboratory test finding 12/02/2020 [facility] (Interface) [phone] Lipase 144 U/L Normal 73-393 Ua W/ Reflex To Culture 12/02/2020 [facility] ([facility]) [phone] Appearance, Urine RFX CLOUDY High Clear Color, Urine RFX YELLOW Normal Yellow PH,Urine RFX 7.0 units Normal 5.0-9.0 Specific [place] Ur Auto RFX 1.018 Normal 1.002-1.035 Protein, [...] SMALL High Negative Reflex Urine Culture 12/02/2020 [facility]) [phone] Reflex Urine Culture FULL REPORT IN L [...] Little GFR Left ESRD GFR <[address] BAILIFF OR SHERIFF 3 FULL REPORT IN LAB NOTES (eC W and Medent). NO GROWTH CLINICAL SIGNIFICANCE 1 ORGANISM Procedures Date Code Description Status 05/24/2021 89904 Office/Outpatient Established Lo w MDM 20-29 Min Completed 05/08/2021 33896 Office/Outpatient Established Lo w MDM 20-29 Min Completed 04/24/2021 99760 Office/Outpatient Established Mo d MDM 30-39 Min Completed Medical Devices Description No Information Available Encounters Type Date Location Provider Dx Diagnosis Office Visit 05/24/2021 2:40p [place] [facility] Jake Aguila, RP A R21 Rash and other nonspecific skin eruption G47.00 Insomnia, unspecified F33.1 Major depressive disorder, r ecurrent, moderate Office Visit 05/08/2021 10:20a [place] [facility] Jake Aguila, RP A G47.00 Insomnia, unspecified F33.1 Major depressive disorder, r ecurrent, moderate Office Visit 04/24/2021 11:15a [place] [facility] Jake Aguila, RP A G43.909 Migraine, unsp, not intractable, without status migrainosus F33.1 Major depressive disorder, r ecurrent, moderate Assessments Date Code Description Provider 05/24/2021 R21 Rash and other nonspecific skin eruption Jake Aguila, RPA 05/24/2021 G47.00 Insomnia, unspecified Malu Aguila, RPA 05/24/2021 F33.1 Major depressive disorder, recur rent, moderate Jake Aguila, RPA 05/08/2021 G47.00 Insomnia, unspecified Malu Aguila, RPA 05/08/2021 F33.1 Major depressive disorder, recur rent, moderate Jake Aguila, RPA 04/24/2021 G43.909 Migraine, unspecifie d, not intractable, without status migrainosus Jake Aguila, RPA 04/24/2021 F33.1 Major depressive disorder, recur rent, moderate Jake Aguila, RPA Plan of Treatment Future Appointment(s):* 08/26/2021 2:00 pm - Jake Aguila RPA at [facility] Functional Status Description No Information Available Mental Status Description No Information Available Referrals Description No Information Available
--- OUTSIDE RECORDS SUMMARY | 2021-06-04 11:13 | CCD | Continuity of Care Document ---
Author Author Meagan AGUILA RPA Organization Unknown Address [address] [place] [address] Phone [phone] Care Team Providers Care Scabbler Name Role Phone [facility] Orthopedics - Orthopedic/Phys/Osteo AUTM [phone] Problems Active Problems Provider Date Insomnia Jake [...] CPT Code Status Date Vaccine Lot # [id number] Refused 05/24/2021 Influenza Virus Vaccine, Quadrivalent, Slit Virus, Im Use 3Y & Up Vital Signs Date Vital Result Comment 05/24/2021 2:55pm BP Systolic 118 mmHg BP Diastolic 84 mmHg Body Temperature 98.2 F Heart Rate 87 /min Respiratory Rate 16 /min Height 62 inches 5'2" Weight 176.00 lb [place] Body Weight 110 lb BMI (Body Mass Index) 32.2 kg/m2 O2 % BldC Oximetry 97 % 05/08/2021 11:37am BP Systolic 114 mmHg BP Diastolic 80 mmHg Body Temperature 98.0 F Heart Rate 80 /min Respiratory Rate 16 /min Height 62 inches 5'2" Weight 175.00 lb [place] Body Weight 110 lb BMI (Body Mass Index) 32.0 kg/m2 O2 % BldC Oximetry 96 % Results Test Acquired Date Facility Test Result H/L Range Note Aerobic Bacterial Culture 05/24/2021 [facility] [place] Aerobic Bacterial Culture Preliminary repo <SEE NOTE> 1, 2 Result 1 (SEE NOTE) 3 [facility] [phone] Troponin I <pending> iSTAT Troponin 0.00 NG/ML Normal 0.00-0.08 Respiratory Panel 03/01/2021 [facility] (I nterface) [phone] Respiratory Panel This respiratory <SEE NOTE> 4 Laboratory test finding [facility] [phone] Troponin I <pending> iSTAT Troponin 0.00 NG/ML Normal 0.00-0.08 CBC With Differential 03/01/2021 [facility] (Interface) [phone] White Blood Count 7.4 10 Normal 4.0-10.0 [...] 36.0-66.0 Lymph % 21.7 % Low 24.0-44.0 [place] % 7.7 % Normal 2.0-8.0 Eos % 1.8 % Normal 0.0-3.0 Baso % 0.5 % Normal 0.0-1.0 Immature Granulocyte % 0.4 % Normal 0-3.0 Nucleated Red Blood Cell % 0.0 % Normal 0-0 Neutrophils # 5.0 10 Normal 1.5-8.5 Lymph # 1.6 10 Normal 1.5-5.0 [place] # 0.6 10 Normal 0.0-0.8 Eos # 0.1 10 Normal 0.0-0.5 Baso # 0.0 10 Normal 0.0-0.2 Basic Metabolic Profile 03/01/2021 [facility] (Interface) [phone] Glucose, Fasting 84 mg/dL Normal 70-100 Blood Urea Nitrogen 13 mg/dL Normal 7-18 Creatinine For GFR 0.69 mg/dL Normal 0.55-1.30 Glomerular Filtration Rate > 60.0 Normal >58 5 Sodium Level 140 mEq/L Normal 136-145 Potassium Serum 4.2 mEq/L Normal 3.5-5.1 Chloride Level 104 mEq/L Normal 98-107 Carbon Dioxide Level 30 mEq/L Normal 21-32 Anion Gap 6 mEq/L Low 8-16 Calcium Level 9.2 mg/dL Normal 8.5-10.1 Istat Chem8+ Panel 12/02/2020 [facility] (I nterface) [phone] iSTAT HCT 45.0 % Normal 38.0-51.0 iSTAT Glucose 125 mg/dL High 70-105 iSTAT Sodium 140 mEq/L Normal 136-145 iSTAT Potassium 3.3 mEq/L Low 3.5-5.1 iSTAT CA++ 4.9 mg/dL Normal 4.5-5.3 iSTAT Chloride 104 mEq/L Normal 98-109 iSTAT Co2 26.0 MM/L Normal 23.0-27.0 iSTAT BUN 18 mg/dL Normal 8-26 iSTAT Creatinine 0.7 mg/dL Normal 0.6-1.3 CBC With Auto Differential OB 12/02/2020 [facility] ([facility]) [phone] White Blood Count 8.0 10 Normal 4.0-10.0 [...] 36.0-66.0 Lymph % 29.5 % Normal 24.0-44.0 [place] % 9.0 % High 2.0-8.0 Eos % 1.5 % Normal 0.0-3.0 Baso % 0.5 % Normal 0.0-1.0 Immature Granulocyte % 0.5 % Normal 0-3.0 Nucleated Red Blood Cell % 0.0 % Normal 0-0 Neutrophils # 4.8 10 Normal 1.5-8.5 Lymph # 2.4 10 Normal 1.5-5.0 [place] # 0.7 10 Normal 0.0-0.8 Eos # 0.1 10 Normal 0.0-0.5 Baso # 0.0 10 Normal 0.0-0.2 Liver Profile 12/02/2020 [facility] (I nterface) [phone] Ast/Sgot 17 U/L Normal 7-37 Alt/SGPT 28 U/L Normal 12-78 Alkaline Phosphatase 117 U/L Normal 45-117 Bilirubin,Total 0.5 mg/dL Normal 0.2-1.0 Bilirubin,Direct 0.2 mg/dL Normal 0.0-0.2 Total Protein 7.7 GM/DL Normal 6.4-8.2 Albumin 3.7 GM/DL Normal 3.2-5.2 Albumin/Globulin Ratio 0.9 Low 1.2-2.2 Laboratory test finding 12/02/2020 [facility] ([facility]) [phone] Lipase 144 U/L Normal 73-393 Ua W/ Reflex To Culture 12/02/2020 [facility] ([facility]) [phone] Appearance, Urine RFX CLOUDY High Clear Color, Urine RFX YELLOW Normal Yellow PH,Urine RFX 7.0 units Normal 5.0-9.0 Specific [place] Ur Auto RFX 1.018 Normal 1.002-1.035 Protein, [...] SMALL High Negative Reflex Urine Culture 12/02/2020 [facility]) [phone] Reflex Urine Culture FULL REPORT IN L <SEE NOTE> Norm al 6 1 SRC:RASH NECK 2 Preliminary report Source of Specimen: RASH NECK 3 Source of Specimen: RASH NEC K No growth after 18-24 hours. 4 This respiratory PCR panel d etects Influenza A H1, H3 and 2009 H1 viruses, Influenza B virus, Resp iratory Syncytial Virus, Human metapneumovirus, Parainfluenza virus 1, 2, 3 and 4, Adenovirus, Rhinovirus/Enterovirus, Coronavirus HKU1, NL63, OC43, 229E and SARS-CoV-2 (COVID 19), Bordetella pertussis, Bordetella parapertussis, Mycoplasma pneumoniae and Chlamydia pneumoniae. NEGATIVE by MULTIPLEXED NUCLEIC ACID PCR SARS-CoV-2 (COVID 19) NEGATIVE - SARS-CoV-2 (COVID19) 5 Units are mL/min/1.73 m2 Chronic Kidney Disease Staging per NKF: Stage I & II GFR >=60 Normal to Mildly Decreased Stage III GFR 30-59 Moderately Decreased Stage IV GFR 15-29 Severely Decreased Stage V GFR <15 Very Little GFR Left ESRD GFR <15 on WINDOWS SYSTEMS ENGINEER 6 FULL REPORT IN LAB NOTES (eC W and Medent). NO GROWTH CLINICAL SIGNIFICANCE 1 ORGANISM Procedures Date Code Description Status 05/24/2021 66838 Office/Outpatient Established Lo w MDM 20-29 Min Completed 05/08/2021 08410 Office/Outpatient Established Lo w MDM 20-29 Min Completed 04/24/2021 69717 Office/Outpatient Established Mo d MDM 30-39 Min Completed Medical Devices Description No Information Available Encounters Type Date Location Provider Dx Diagnosis Office Visit 05/24/2021 2:40p [place] [facility] Jake Aguila, RP A R21 Rash and other nonspecific skin eruption G47.00 Insomnia, unspecified F33.1 Major depressive disorder, r ecurrent, moderate Office Visit 05/08/2021 10:20a [place] [facility] Jake Aguila, RP A G47.00 Insomnia, unspecified F33.1 Major depressive disorder, r ecurrent, moderate Office Visit 04/24/2021 11:15a [place] [facility] Jake Aguila, RP A G43.909 Migraine, [...] depressive disorder, recur rent, moderate Jake Aguila, JOHN Plan of Treatment Future Appointment(s):* 08/26/2021 2:00 pm - Jake Aguila, JOHN at [facility] Functional Status Description No Information Available Mental Status Description No Information Available Referrals Description No Information Available
--- OUTSIDE RECORDS SUMMARY | 2021-06-04 11:13 | CCD | Continuity of Care Document ---
Author Author Meagan AGUILA RPA Organization Unknown Address [address] [place] [address] Phone [phone] Care Team Providers Care Telephone Order Clerk Room Service Name Role Phone [facility] Orthopedics - Orthopedic/Phys/Osteo AUTM [phone] Problems Active Problems Provider Date Insomnia Jake [...] CPT Code Status Date Vaccine Lot # [id number] Refused 05/24/2021 Influenza Virus Vaccine, Quadrivalent, Slit Virus, Im Use 3Y & Up Vital Signs Date Vital Result Comment 05/24/2021 2:55pm BP Systolic 118 mmHg BP Diastolic 84 mmHg Body Temperature 98.2 F Heart Rate 87 /min Respiratory Rate 16 /min Height 62 inches 5'2" Weight 176.00 lb [place] Body Weight 110 lb BMI (Body Mass Index) 32.2 kg/m2 O2 % BldC Oximetry 97 % 05/08/2021 11:37am BP Systolic 114 mmHg BP Diastolic 80 mmHg Body Temperature 98.0 F Heart Rate 80 /min Respiratory Rate 16 /min Height 62 inches 5'2" Weight 175.00 lb [place] Body Weight 110 lb BMI (Body Mass Index) 32.0 kg/m2 O2 % BldC Oximetry 96 % Results Test Acquired Date Facility Test Result H/L Range Note Aerobic Bacterial Culture 05/24/2021 [facility] [place] Aerobic Bacterial Culture Preliminary repo <SEE NOTE> 1, 2 Result 1 (SEE NOTE) 3 Laboratory test finding [facility] [phone] Troponin I <pending> iSTAT Troponin 0.00 NG/ML Normal 0.00-0.08 Respiratory Panel 03/01/2021 [facility] (I nterface) [phone] Respiratory Panel This respiratory <SEE NOTE> 4 Laboratory test finding [facility] [phone] Troponin I <pending> iSTAT Troponin 0.00 NG/ML Normal 0.00-0.08 CBC With Differential 03/01/2021 [facility] (Interface) [phone] White Blood Count 7.4 10 Normal 4.0-10.0 [...] 36.0-66.0 Lymph % 21.7 % Low 24.0-44.0 [place] % 7.7 % Normal 2.0-8.0 Eos % 1.8 % Normal 0.0-3.0 Baso % 0.5 % Normal 0.0-1.0 Immature Granulocyte % 0.4 % Normal 0-3.0 Nucleated Red Blood Cell % 0.0 % Normal 0-0 Neutrophils # 5.0 10 Normal 1.5-8.5 Lymph # 1.6 10 Normal 1.5-5.0 [place] # 0.6 10 Normal 0.0-0.8 Eos # 0.1 10 Normal 0.0-0.5 Baso # 0.0 10 Normal 0.0-0.2 Basic Metabolic Profile 03/01/2021 [facility] (Interface) [phone] Glucose, Fasting 84 mg/dL Normal 70-100 Blood [...] mg/dL Normal 8.5-10.1 Istat Chem8+ Panel 12/02/2020 [facility] (I nterface) [phone] iSTAT HCT 45.0 % Normal 38.0-51.0 iSTAT Glucose 125 mg/dL High 70-105 iSTAT Sodium 140 mEq/L Normal 136-145 iSTAT Potassium 3.3 mEq/L Low 3.5-5.1 iSTAT CA++ 4.9 mg/dL Normal 4.5-5.3 iSTAT Chloride 104 mEq/L Normal 98-109 iSTAT Co2 26.0 MM/L Normal 23.0-27.0 iSTAT BUN 18 mg/dL Normal 8-26 iSTAT Creatinine 0.7 mg/dL Normal 0.6-1.3 CBC With Auto Differential OB 12/02/2020 [facility] ([facility]) [phone] White Blood Count 8.0 10 Normal 4.0-10.0 [...] 36.0-66.0 Lymph % 29.5 % Normal 24.0-44.0 [place] % 9.0 % High 2.0-8.0 Eos % 1.5 % Normal 0.0-3.0 Baso % 0.5 % Normal 0.0-1.0 Immature Granulocyte % 0.5 % Normal 0-3.0 Nucleated Red Blood Cell % 0.0 % Normal 0-0 Neutrophils # 4.8 10 Normal 1.5-8.5 Lymph # 2.4 10 Normal 1.5-5.0 [place] # 0.7 10 Normal 0.0-0.8 Eos # 0.1 10 Normal 0.0-0.5 Baso # 0.0 10 Normal 0.0-0.2 Liver Profile 12/02/2020 [facility] (I [place]face) [phone] Ast/Sgot 17 U/L Normal 7-37 Alt/SGPT 28 U/L Normal 12-78 Alkaline Phosphatase 117 U/L Normal 45-117 Bilirubin,Total 0.5 mg/dL Normal 0.2-1.0 Bilirubin,Direct 0.2 mg/dL Normal 0.0-0.2 Total Protein 7.7 GM/DL Normal 6.4-8.2 Albumin 3.7 GM/DL Normal 3.2-5.2 Albumin/Globulin Ratio 0.9 Low 1.2-2.2 Laboratory test finding 12/02/2020 [facility] ([facility]) [phone] Lipase 144 U/L Normal 73-393 Ua W/ Reflex To Culture 12/02/2020 [facility] ([facility]) [phone] Appearance, Urine RFX CLOUDY High Clear Color, Urine RFX YELLOW Normal Yellow PH,Urine RFX 7.0 units Normal 5.0-9.0 Specific [place] Ur Auto RFX 1.018 Normal 1.002-1.035 Protein, [...] SMALL High Negative Reflex Urine Culture 12/02/2020 [facility]) [phone] Reflex Urine Culture FULL REPORT IN L [...] Little GFR Left ESRD GFR <15 on MANAGER STORE 6 FULL REPORT IN LAB NOTES (eC W and Medent). NO GROWTH CLINICAL SIGNIFICANCE 1 ORGANISM Procedures Date Code Description Status 05/24/2021 72789 Office/Outpatient Established Lo w MDM 20-29 Min Completed 05/08/2021 39477 Office/Outpatient Established Lo w MDM 20-29 Min Completed 04/24/2021 62312 Office/Outpatient Established Mo d MDM 30-39 Min Completed Medical Devices Description No Information Available Encounters Type Date Location Provider Dx Diagnosis Office Visit 05/24/2021 2:40p [place] [facility] Jake Aguila, RP A R21 Rash and other nonspecific skin eruption G47.00 Insomnia, unspecified F33.1 Major depressive disorder, r ecurrent, moderate Office Visit 05/08/2021 10:20a [place] [facility] Jake Aguila, RP A G47.00 Insomnia, unspecified F33.1 Major depressive disorder, r ecurrent, moderate Office Visit 04/24/2021 11:15a [place] [facility] Jake Aguila, RP A G43.909 Migraine, [...] 2:00 pm - Jake Aguila, JOHN at [facility] Functional Status Description No Information Available Mental Status Description No Information Available Referrals Description No Information Available
--- OUTSIDE RECORDS SUMMARY | 2021-06-04 11:13 | CCD | Continuity of Care Document ---
Author Author Meagan AGUILA RPA Organization Unknown Address [address] [place] [address] Phone [phone] Care Team Providers Care Joggle Press Operator Name Role Phone [facility] Orthopedics - Orthopedic/Phys/Osteo AUTM [phone] Problems Active Problems Provider Date Moderate recurrent [...] at bedtime 30tabs Guz[facility]. , [facility] 04/24/2021 Triamcinolone Acetonide 0.5% Cream apply topically to rash on left neck twice a day 30gm Maria Del Rosario nEgle FNP-BC 10/12/[address] 1 by mouth every day 30tabs Maria Del Rosario Worthington FNP-BC 0 Verapamil HCL 80mg Tablets 1 by mouth bid Donald Shaver Immunizations Description No Information Available Vital Signs Date Vital Result Comment 04/24/2021 10:58am BP Systolic 128 mmHg BP Diastolic 88 mmHg Body Temperature 98.0 F Heart Rate 98 /min Respiratory Rate 16 /min Height 62 inches 5'2" Weight 174.00 lb [place] Body Weight 110 lb BMI (Body Mass Index) 31.8 kg/m2 O2 % BldC Oximetry 98 % 10/12/2020 11:16am BP Systolic 136 mmHg BP Diastolic 88 mmHg Body Temperature 97.7 F Heart Rate 92 /min Respiratory Rate 18 /min Height 62 inches 5'2" Weight 168.00 lb [place] Body Weight 110 lb BMI (Body Mass Index) 30.7 kg/m2 O2 % BldC Oximetry 98 % Results Test Acquired Date Facility Test Result H/L Range Note Laboratory test finding 03/01/2021 [facility] (Interface) [phone] Troponin I <pending> iSTAT Troponin 0.00 NG/ML Normal 0.00-0.08 Respiratory Panel 03/01/2021 [facility] (I nterface) [phone] Respiratory Panel This respiratory <SEE NOTE> 1 Laboratory test finding 03/01/2021 [facility] (Interface) [phone] Troponin I <pending> iSTAT Troponin 0.00 NG/ML Normal 0.00-0.08 CBC With Differential 03/01/2021 [facility] (Interface) [phone] White Blood Count 7.4 10 Normal 4.0-10.0 [...] 36.0-66.0 Lymph % 21.7 % Low 24.0-44.0 [place] % 7.7 % Normal 2.0-8.0 Eos % 1.8 % Normal 0.0-3.0 Baso % 0.5 % Normal 0.0-1.0 Immature Granulocyte % 0.4 % Normal 0-3.0 Nucleated Red Blood Cell % 0.0 % Normal 0-0 Neutrophils # 5.0 10 Normal 1.5-8.5 Lymph # 1.6 10 Normal 1.5-5.0 [place] # 0.6 10 Normal 0.0-0.8 Eos # 0.1 10 Normal 0.0-0.5 Baso # 0.0 10 Normal 0.0-0.2 Basic Metabolic Profile 03/01/2021 [facility] (Interface) [phone] Glucose, Fasting 84 mg/dL Normal 70-100 Blood [...] mg/dL Normal 8.5-10.1 Istat Chem8+ Panel 12/02/2020 [facility] (I nterface) [phone] iSTAT HCT 45.0 % Normal 38.0-51.0 iSTAT Glucose 125 mg/dL High 70-105 iSTAT Sodium 140 mEq/L Normal 136-145 iSTAT Potassium 3.3 mEq/L Low 3.5-5.1 iSTAT CA++ 4.9 mg/dL Normal 4.5-5.3 iSTAT Chloride 104 mEq/L Normal 98-109 iSTAT Co2 26.0 MM/L Normal 23.0-27.0 iSTAT BUN 18 mg/dL Normal 8-26 iSTAT Creatinine 0.7 mg/dL Normal 0.6-1.3 CBC With Auto Differential OB 12/02/2020 [facility] (Interface) [phone] White Blood Count 8.0 10 Normal 4.0-10.0 [...] 36.0-66.0 Lymph % 29.5 % Normal 24.0-44.0 [place] % 9.0 % High 2.0-8.0 Eos % 1.5 % Normal 0.0-3.0 Baso % 0.5 % Normal 0.0-1.0 Immature Granulocyte % 0.5 % Normal 0-3.0 Nucleated Red Blood Cell % 0.0 % Normal 0-0 Neutrophils # 4.8 10 Normal 1.5-8.5 Lymph # 2.4 10 Normal 1.5-5.0 [place] # 0.7 10 Normal 0.0-0.8 Eos # 0.1 10 Normal 0.0-0.5 Baso # 0.0 10 Normal 0.0-0.2 Liver Profile 12/02/2020 [facility] [phone] Ast/Sgot 17 U/L Normal 7-37 Alt/SGPT 28 U/L Normal 12-78 Alkaline Phosphatase 117 U/L Normal 45-117 Bilirubin,Total 0.5 mg/dL Normal 0.2-1.0 Bilirubin,Direct 0.2 mg/dL Normal 0.0-0.2 Total Protein 7.7 GM/DL Normal 6.4-8.2 Albumin 3.7 GM/DL Normal 3.2-5.2 Albumin/Globulin Ratio 0.9 Low 1.2-2.2 Laboratory test finding 12/02/2020 [facility] (Interface) [phone] Lipase 144 U/L Normal 73-393 Ua W/ Reflex To Culture 12/02/2020 [facility] (Interface) [phone] Appearance, Urine RFX CLOUDY High Clear Color, Urine RFX YELLOW Normal Yellow PH,Urine RFX 7.0 units Normal 5.0-9.0 Specific [place] Ur Auto RFX 1.018 Normal 1.002-1.035 Protein, [...] SMALL High Negative Reflex Urine Culture 12/02/2020 [facility] ( [facility]) [phone] Reflex Urine Culture FULL REPORT IN L <SEE NOTE> Norm al 3 1 This respiratory PCR panel d etects Influenza A H1, H3 and 2008 H1 viruses, Influenza B virus, Resp iratory [...] Little GFR Left ESRD GFR <15 on AUDIT MGR 3 FULL REPORT IN LAB NOTES (eC W and Medent). NO GROWTH CLINICAL SIGNIFICANCE 1 ORGANISM Procedures Date Code Description Status 04/24/2021 94120 Office/Outpatient Established Mo d MDM 30-39 Min Completed Medical Devices Description No Information Available Encounters Type Date Location Provider Dx Diagnosis Office Visit 04/24/2021 11:15a [place] [facility] Jake Aguila, RP A G43.909 Migraine, unsp, not intractable, without status migrainosus F33.1 Major depressive disorder, r ecurrent, moderate Assessments Date Code Description Provider 04/24/2021 G43.909 Migraine, unspecifie d, not intractable, without status migrainosus Jake Aguila, JOHN 04/24/2021 F33.1 Major depressive disorder, recur rent, moderate Jake Aguila, JOHN Plan of Treatment Future Appointment(s):* 05/08/2021 10:20 am - Jake Aguila RPA at [facility] Functional Status Description No Information Available Mental Status Description No Information Available Referrals Description No Information Available
--- OUTSIDE RECORDS SUMMARY | 2021-06-04 11:13 | CCD | Continuity of Care Document ---
Author Author Meagan AGUILA RPA Organization Unknown Address [address] [place] [address] Phone [phone] Care Team Providers Care Child Care Giver Name Role Phone [facility] Orthopedics - Orthopedic/Phys/Osteo AUTM [phone] Problems Active Problems Provider Date Insomnia Jake [...] Indications Ordering Provide r Date Citalopram Hydrobromide 20mg Table ts 1 by mouth every day at bedtime (replace the 10mg dose) 30tabs Guzman Luna D.O., FAAFP 05/08/2021 Triamcinolone Acetonide 0.5% Cream apply topically to rash on left neck twice a day 30gm Maria Del Rosario [place] FNP-LI 10/12/[address] 1 by mouth every day 30tabs Maria Del Rosario Worthington FNP-LI 0 Verapamil HCL 80mg Tablets 1 by mouth bid Donald Shaver History Medications Citalopram Hydrobromide 10mg Table ts 1 by mouth every day at bedtime 30tabs Guzman Luna D.O. , FAAFP 04/24/2021 - 05/08/2021 Immunizations Description No Information Available Vital Signs Date Vital Result Comment 05/08/2021 11:37am BP Systolic 114 mmHg BP Diastolic 80 mmHg Body Temperature 98.0 F Heart Rate 80 /min Respiratory Rate 16 /min Height 62 inches 5'2" Weight 175.00 lb [place] Body Weight 110 lb BMI (Body Mass Index) 32.0 kg/m2 O2 % BldC Oximetry 96 % 04/24/2021 10:58am BP Systolic 128 mmHg BP Diastolic 88 mmHg Body Temperature 98.0 F Heart Rate 98 /min Respiratory Rate 16 /min Height 62 inches 5'2" Weight 174.00 lb [place] Body Weight 110 lb BMI (Body Mass Index) 31.8 kg/m2 O2 % BldC Oximetry 98 % Results Test Acquired Date Facility Test Result H/L Range Note Laboratory test finding 03/01/2021 [facility] (Interface) [phone] Troponin I <pending> iSTAT Troponin 0.00 NG/ML Normal 0.00-0.08 Respiratory Panel 03/01/2021 [facility] [phone] Respiratory Panel This respiratory <SEE NOTE> 1 Laboratory test finding 03/01/2021 [facility] (Interface) [phone] Troponin I <pending> iSTAT Troponin 0.00 NG/ML Normal 0.00-0.08 CBC With Differential 03/01/2021 [facility] (Interface) [phone] White Blood Count 7.4 10 Normal 4.0-10.0 [...] 36.0-66.0 Lymph % 21.7 % Low 24.0-44.0 [place] % 7.7 % Normal 2.0-8.0 Eos % 1.8 % Normal 0.0-3.0 Baso % 0.5 % Normal 0.0-1.0 Immature Granulocyte % 0.4 % Normal 0-3.0 Nucleated Red Blood Cell % 0.0 % Normal 0-0 Neutrophils # 5.0 10 Normal 1.5-8.5 Lymph # 1.6 10 Normal 1.5-5.0 [place] # 0.6 10 Normal 0.0-0.8 Eos # 0.1 10 Normal 0.0-0.5 Baso # 0.0 10 Normal 0.0-0.2 Basic Metabolic Profile 03/01/2021 [facility] (Interface) [phone] Glucose, Fasting 84 mg/dL Normal 70-100 Blood [...] mg/dL Normal 8.5-10.1 Istat Chem8+ Panel 12/02/2020 [facility] (I nterface) [phone] iSTAT HCT 45.0 % Normal 38.0-51.0 iSTAT Glucose 125 mg/dL High 70-105 iSTAT Sodium 140 mEq/L Normal 136-145 iSTAT Potassium 3.3 mEq/L Low 3.5-5.1 iSTAT CA++ 4.9 mg/dL Normal 4.5-5.3 iSTAT Chloride 104 mEq/L Normal 98-109 iSTAT Co2 26.0 MM/L Normal 23.0-27.0 iSTAT BUN 18 mg/dL Normal 8-26 iSTAT Creatinine 0.7 mg/dL Normal 0.6-1.3 CBC With Auto Differential OB 12/02/2020 [facility] (Interface) [phone] White Blood Count 8.0 10 Normal 4.0-10.0 [...] 36.0-66.0 Lymph % 29.5 % Normal 24.0-44.0 [place] % 9.0 % High 2.0-8.0 Eos % 1.5 % Normal 0.0-3.0 Baso % 0.5 % Normal 0.0-1.0 Immature Granulocyte % 0.5 % Normal 0-3.0 Nucleated Red Blood Cell % 0.0 % Normal 0-0 Neutrophils # 4.8 10 Normal 1.5-8.5 Lymph # 2.4 10 Normal 1.5-5.0 [place] # 0.7 10 Normal 0.0-0.8 Eos # 0.1 10 Normal 0.0-0.5 Baso # 0.0 10 Normal 0.0-0.2 Liver Profile 12/02/2020 [facility] ([facility]) [phone] Ast/Sgot 17 U/L Normal 7-37 Alt/SGPT 28 U/L Normal 12-78 Alkaline Phosphatase 117 U/L Normal 45-117 Bilirubin,Total 0.5 mg/dL Normal 0.2-1.0 Bilirubin,Direct 0.2 mg/dL Normal 0.0-0.2 Total Protein 7.7 GM/DL Normal 6.4-8.2 Albumin 3.7 GM/DL Normal 3.2-5.2 Albumin/Globulin Ratio 0.9 Low 1.2-2.2 Laboratory test finding 12/02/2020 [facility] (Interface) [phone] Lipase 144 U/L Normal 73-393 Ua W/ Reflex To Culture 12/02/2020 [facility] (Interface) [phone] Appearance, Urine RFX CLOUDY High Clear Color, Urine RFX YELLOW Normal Yellow PH,Urine RFX 7.0 units Normal 5.0-9.0 Specific [place] Ur Auto RFX 1.018 Normal 1.002-1.035 Protein, [...] SMALL High Negative Reflex Urine Culture 12/02/2020 [facility] ( [facility]) [phone] Reflex Urine Culture FULL REPORT IN L [...] Little GFR Left ESRD GFR <15 on TOWER OBSERVER 3 FULL REPORT IN LAB NOTES (eC W and Medent). NO GROWTH CLINICAL SIGNIFICANCE 1 ORGANISM Procedures Date Code Description Status 05/08/2021 98805 Office/Outpatient Established Lo w MDM 20-29 Min Completed 04/24/2021 65160 Office/Outpatient Established Mo d MDM 30-39 Min Completed Medical Devices Description No Information Available Encounters Type Date Location Provider Dx Diagnosis Office Visit 05/08/2021 10:20a [place] [facility] Jake Aguila, RP A G47.00 Insomnia, unspecified F33.1 Major depressive disorder, r ecurrent, moderate Office Visit 04/24/2021 11:15a [place] [facility] Jake Aguila, RP A G43.909 Migraine, unsp, not intractable, without status migrainosus F33.1 Major depressive disorder, r ecurrent, moderate Assessments Date Code Description Provider 05/08/2021 G47.00 Insomnia, unspecified Malu Aguila, RPA 05/08/2021 F33.1 Major depressive disorder, recur rent, moderate Jake Aguila, RPA 04/24/2021 G43.909 Migraine, unspecifie d, not intractable, without status migrainosus Jake Aguila, RPA 04/24/2021 F33.1 Major depressive disorder, recur rent, moderate Jake Aguila, RPA Plan of Treatment Future Appointment(s):* 05/22/2021 3:00 pm - Jake Aguila, JOHN at [facility] Functional Status Description No Information Available Mental Status Description No Information Available Referrals Description No Information Available
--- OUTSIDE RECORDS SUMMARY | 2021-06-04 11:13 | CCD | Continuity of Care Document ---
Author Author Meagan AGUILA RPA Organization Unknown Address [address] [place] [address] Phone [phone] Care Team Providers Care Transformer Repairer Name Role Phone [facility] Orthopedics - Orthopedic/Phys/Osteo AUTM [phone] Problems Active Problems Provider Date Insomnia Jake [...] Height 62 inches 5'2" Weight 174.00 lb [place] Body Weight 110 lb BMI (Body Mass Index) 31.8 kg/m2 O2 % BldC Oximetry 98 % 10/12/2020 11:16am BP Systolic 136 mmHg BP Diastolic 88 mmHg Body Temperature 97.7 F Heart Rate 92 /min Respiratory Rate 18 /min Height 62 inches 5'2" Weight 168.00 lb [place] Body Weight 110 lb BMI (Body Mass Index) 30.7 kg/m2 O2 % BldC Oximetry 98 % Results Test Acquired Date Facility Test Result H/L Range Note Laboratory test finding 03/01/2021 [facility] (Interface) [phone] Troponin I <pending> iSTAT Troponin 0.00 NG/ML Normal 0.00-0.08 Respiratory Panel 03/01/2021 [facility] [phone] Respiratory Panel This respiratory <SEE NOTE> 1 Laboratory test finding 03/01/2021 [facility] (Interface) [phone] Troponin I <pending> iSTAT Troponin 0.00 NG/ML Normal 0.00-0.08 CBC With Differential 03/01/2021 [facility] (Interface) [phone] White Blood Count 7.4 10 Normal 4.0-10.0 [...] 36.0-66.0 Lymph % 21.7 % Low 24.0-44.0 [place] % 7.7 % Normal 2.0-8.0 Eos % 1.8 % Normal 0.0-3.0 Baso % 0.5 % Normal 0.0-1.0 Immature Granulocyte % 0.4 % Normal 0-3.0 Nucleated Red Blood Cell % 0.0 % Normal 0-0 Neutrophils # 5.0 10 Normal 1.5-8.5 Lymph # 1.6 10 Normal 1.5-5.0 [place] # 0.6 10 Normal 0.0-0.8 Eos # 0.1 10 Normal 0.0-0.5 Baso # 0.0 10 Normal 0.0-0.2 Basic Metabolic Profile 03/01/2021 [facility] (Interface) [phone] Glucose, Fasting 84 mg/dL Normal 70-100 Blood [...] mg/dL Normal 8.5-10.1 Istat Chem8+ Panel 12/02/2020 [facility] [phone] iSTAT HCT 45.0 % Normal 38.0-51.0 iSTAT Glucose 125 mg/dL High 70-105 iSTAT Sodium 140 mEq/L Normal 136-145 iSTAT Potassium 3.3 mEq/L Low 3.5-5.1 iSTAT CA++ 4.9 mg/dL Normal 4.5-5.3 iSTAT Chloride 104 mEq/L Normal 98-109 iSTAT Co2 26.0 MM/L Normal 23.0-27.0 iSTAT BUN 18 mg/dL Normal 8-26 iSTAT Creatinine 0.7 mg/dL Normal 0.6-1.3 CBC With Auto Differential OB 12/02/2020 [facility] (Interface) [phone] White Blood Count 8.0 10 Normal 4.0-10.0 [...] 36.0-66.0 Lymph % 29.5 % Normal 24.0-44.0 [place] % 9.0 % High 2.0-8.0 Eos % 1.5 % Normal 0.0-3.0 Baso % 0.5 % Normal 0.0-1.0 Immature Granulocyte % 0.5 % Normal 0-3.0 Nucleated Red Blood Cell % 0.0 % Normal 0-0 Neutrophils # 4.8 10 Normal 1.5-8.5 Lymph # 2.4 10 Normal 1.5-5.0 [place] # 0.7 10 Normal 0.0-0.8 Eos # 0.1 10 Normal 0.0-0.5 Baso # 0.0 10 Normal 0.0-0.2 Liver Profile 12/02/2020 [facility] ([facility]) [phone] Ast/Sgot 17 U/L Normal 7-37 Alt/SGPT 28 U/L Normal 12-78 Alkaline Phosphatase 117 U/L Normal 45-117 Bilirubin,Total 0.5 mg/dL Normal 0.2-1.0 Bilirubin,Direct 0.2 mg/dL Normal 0.0-0.2 Total Protein 7.7 GM/DL Normal 6.4-8.2 Albumin 3.7 GM/DL Normal 3.2-5.2 Albumin/Globulin Ratio 0.9 Low 1.2-2.2 Laboratory test finding 12/02/2020 [facility] (Interface) [phone] Lipase 144 U/L Normal 73-393 Ua W/ Reflex To Culture 12/02/2020 [facility] (Interface) [phone] Appearance, Urine RFX CLOUDY High Clear Color, Urine RFX YELLOW Normal Yellow PH,Urine RFX 7.0 units Normal 5.0-9.0 Specific [place] Ur Auto RFX 1.018 Normal 1.002-1.035 Protein, [...] SMALL High Negative Reflex Urine Culture 12/02/2020 [facility] ( [facility]) [phone] Reflex Urine Culture FULL REPORT IN L [...] Little GFR Left ESRD GFR <15 on PRISM INSPECTOR 3 FULL REPORT IN LAB NOTES (eC W and Medent). NO GROWTH CLINICAL SIGNIFICANCE 1 ORGANISM Procedures Date Code Description Status 04/24/2021 01866 Office/Outpatient Established Mo d MDM 30-39 Min Completed Medical Devices Description No Information Available Encounters Type Date Location Provider Dx Diagnosis Office Visit 04/24/2021 11:15a [place] [facility] Jake Aguila, RP A G43.909 Migraine, [...]
--- OUTSIDE RECORDS SUMMARY | 2021-06-04 11:13 | CCD | Continuity of Care Document ---
Author Author Meagan AGUILA RPA Organization Unknown Address [address] [place] [id number] Phone [phone] Care Team Providers Care Blast Setter Name Role Phone [facility] - Orthopedic/Phys/Osteo AUTM [phone] Problems Active Problems Provider Date Insomnia Jake [...] CPT Code Status Date Vaccine Lot # [id number] Refused 05/24/2021 Influenza Virus Vaccine, Quadrivalent, Slit Virus, Im Use 3Y & Up Vital Signs Date Vital Result Comment 05/24/2021 2:55pm BP Systolic 118 mmHg BP Diastolic 84 mmHg Body Temperature 98.2 F Heart Rate 87 /min Respiratory Rate 16 /min Height 62 inches 5'2" Weight 176.00 lb [place] Body Weight 110 lb BMI (Body Mass Index) 32.2 kg/m2 O2 % BldC Oximetry 97 % 05/08/2021 11:37am BP Systolic 114 mmHg BP Diastolic 80 mmHg Body Temperature 98.0 F Heart Rate 80 /min Respiratory Rate 16 /min Height 62 inches 5'2" Weight 175.00 lb [place] Body Weight 110 lb BMI (Body Mass Index) 32.0 kg/m2 O2 % BldC Oximetry 96 % Results Test Acquired Date Facility Test Result H/L Range Note Laboratory test finding 05/24/2021 [facility] [place] Aerobic Bacterial Culture <pending> Laboratory test finding 03/01/2021 [facility] (Interface) [phone] Troponin I <pending> iSTAT Troponin 0.00 NG/ML Normal 0.00-0.08 Respiratory Panel 03/01/2021 [facility] ([place]terface) [phone] Respiratory Panel This respiratory <SEE NOTE> 1 Laboratory test finding 03/01/2021 [facility] (Interface) [phone] Troponin I <pending> iSTAT Troponin 0.00 NG/ML Normal 0.00-0.08 CBC With Differential 03/01/2021 [facility] (Interface) [phone] White Blood Count 7.4 10 Normal 4.0-10.0 [...] 36.0-66.0 Lymph % 21.7 % Low 24.0-44.0 Ashley % 7.7 % Normal 2.0-8.0 Eos % 1.8 % Normal 0.0-3.0 Baso % 0.5 % Normal 0.0-1.0 Immature Granulocyte % 0.4 % Normal 0-3.0 Nucleated Red Blood Cell % 0.0 % Normal 0-0 Neutrophils # 5.0 10 Normal 1.5-8.5 Lymph # 1.6 10 Normal 1.5-5.0 Ashley # 0.6 10 Normal 0.0-0.8 Eos # 0.1 10 Normal 0.0-0.5 Baso # 0.0 10 Normal 0.0-0.2 Basic Metabolic Profile 03/01/2021 [facility] (Interface) [phone] Glucose, Fasting 84 mg/dL Normal 70-100 Blood [...] mg/dL Normal 8.5-10.1 Istat Chem8+ Panel 12/02/2020 [facility] ([facility] [place]) [phone] iSTAT HCT 45.0 % Normal 38.0-51.0 iSTAT Glucose 125 mg/dL High 70-105 iSTAT Sodium 140 mEq/L Normal 136-145 iSTAT Potassium 3.3 mEq/L Low 3.5-5.1 iSTAT CA++ 4.9 mg/dL Normal 4.5-5.3 iSTAT Chloride 104 mEq/L Normal 98-109 iSTAT Co2 26.0 MM/L Normal 23.0-27.0 iSTAT BUN 18 mg/dL Normal 8-26 iSTAT Creatinine 0.7 mg/dL Normal 0.6-1.3 CBC With Auto Differential OB 12/02/2020 [facility] ([facility]) [phone] White Blood Count 8.0 10 Normal 4.0-10.0 [...] 36.0-66.0 Lymph % 29.5 % Normal 24.0-44.0 Ashley % 9.0 % High 2.0-8.0 Eos % 1.5 % Normal 0.0-3.0 Baso % 0.5 % Normal 0.0-1.0 Immature Granulocyte % 0.5 % Normal 0-3.0 Nucleated Red Blood Cell % 0.0 % Normal 0-0 Neutrophils # 4.8 10 Normal 1.5-8.5 Lymph # 2.4 10 Normal 1.5-5.0 Ashley # 0.7 10 Normal 0.0-0.8 Eos # 0.1 10 Normal 0.0-0.5 Baso # 0.0 10 Normal 0.0-0.2 Liver Profile 12/02/2020 [facility] ([facility] [place]) [phone] Ast/Sgot 17 U/L Normal 7-37 Alt/SGPT 28 U/L Normal 12-78 Alkaline Phosphatase 117 U/L Normal 45-117 Bilirubin,Total 0.5 mg/dL Normal 0.2-1.0 Bilirubin,Direct 0.2 mg/dL Normal 0.0-0.2 Total Protein 7.7 GM/DL Normal 6.4-8.2 Albumin 3.7 GM/DL Normal 3.2-5.2 Albumin/Globulin Ratio 0.9 Low 1.2-2.2 Laboratory test finding 12/02/2020 [facility] (Interface) [phone] Lipase 144 U/L Normal 73-393 Ua W/ Reflex To Culture 12/02/2020 [facility] ([facility]) [phone] Appearance, Urine RFX CLOUDY High Clear Color, Urine RFX YELLOW Normal Yellow PH,Urine RFX 7.0 units Normal 5.0-9.0 Specific [place] Ur Auto RFX 1.018 Normal 1.002-1.035 Protein, [...] SMALL High Negative Reflex Urine Culture 12/02/2020 [facility]) [phone] Reflex Urine Culture FULL REPORT IN L [...] Little GFR Left ESRD GFR <15 on ETCHER ENAMELING 3 FULL REPORT IN LAB NOTES (eC W and [facility]). NO GROWTH CLINICAL SIGNIFICANCE 1 ORGANISM Procedures Date Code Description Status 05/24/2021 85411 Office/Outpatient Established Lo w MDM 20-29 Min Completed 05/08/2021 76579 Office/Outpatient Established Lo w MDM 20-29 Min Completed 04/24/2021 12590 Office/Outpatient Established Mo d MDM 30-39 Min Completed Medical Devices Description No Information Available Encounters Type Date Location Provider Dx Diagnosis Office Visit 05/24/2021 2:40p [facility] Jake Aguila, RP A R21 Rash and other nonspecific skin eruption G47.00 Insomnia, unspecified F33.1 Major depressive disorder, r ecurrent, moderate Office Visit 05/08/2021 10:20a [facility] Jake Aguila, RP A G47.00 Insomnia, unspecified F33.1 Major depressive disorder, r ecurrent, moderate Office Visit 04/24/2021 11:15a [facility] Jake Aguila, RP A G43.909 Migraine, [...] 2:00 pm - Jake Aguila RPA at [facility] Functional Status Description No Information Available Mental Status Description No Information Available Referrals Description No Information Available
--- OUTSIDE RECORDS SUMMARY | 2021-06-04 11:14 | CCD ---
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 Name Role Phone ASAEL BETANCUR MD Unavailable Unavailable ASAEL BETANCUR MD Unavailable Unavailable ASAEL BETANCUR MD Unavailable Unavailable ASAEL BETANCUR MD Unavailable Unavailable ASAEL BETANCUR MD Unavailable Unavailable GYPSY, ASAEL MIGUEL Unavailable Unavailable GYPSY, ASAEL MIGUEL Unavailable Unavailable ASAEL BETANCUR MD Unavailable Unavailable ASAEL BETANCUR MD Unavailable Unavailable ASAEL BETANCUR MD Unavailable Unavailable ASAEL BETANCUR MD Unavailable Unavailable ASAEL BETANCUR MD Unavailable Unavailable ASAEL BETANCUR MD Unavailable Unavailable ASAEL BETANCUR MD Unavailable Unavailable ASAEL BETANCUR MD Unavailable Unavailable ASAEL BETANCUR MD Unavailable Unavailable ASAEL BETANCUR MD Unavailable Unavailable ASAEL BETANCUR MD Unavailable Unavailable ASAEL BETANCUR MD Unavailable Unavailable ASAEL BETANCUR MD Unavailable Unavailable ASAEL BETANCUR MD Unavailable Unavailable ASAEL BETANCUR MD Unavailable Unavailable ASAEL BETANCUR MD Unavailable Unavailable ASAEL BETANCUR MD Unavailable Unavailable ASAEL BETANCUR MD Unavailable Unavailable ASAEL BETANCUR MD Unavailable Unavailable ASAEL BETANCUR MD Unavailable Unavailable ASAEL BETANCUR MD Unavailable Unavailable ASAEL BETANCUR MD Unavailable Unavailable ASAEL BETANCUR MD Unavailable Unavailable ASAEL BETANCUR MD Unavailable Unavailable REINDL, ASAEL MIGUEL Unavailable Unavailable REINDL, ASAEL MIGUEL Unavailable Unavailable REINDL, ASAEL MIGUEL Unavailable Unavailable REINDL, ASAEL MIGUEL Unavailable Unavailable REINDL, ASAEL MIGUEL Unavailable Unavailable REINDL, ASAEL MIGUEL Unavailable Unavailable REINDL, ASAEL MIGUEL Unavailable Unavailable REINDL, ASAEL MIGUEL Unavailable Unavailable REINDL, ASAEL MIGUEL Unavailable Unavailable REINDL, ASAEL MIGUEL Unavailable Unavailable REINDL, ASAEL MIGUEL Unavailable Unavailable Rounds, M DAMASO PARK INTERPRETER Unavailable Unavailable Rounds, M DAMASO PARK INTERPRETER Unavailable Unavailable Rounds, M DAMASO PARK INTERPRETER Unavailable Unavailable Rounds, M DAMASO PARK INTERPRETER Unavailable Unavailable Rounds, M DAMASO PARK INTERPRETER Unavailable Unavailable Rounds, M DAMASO PARK INTERPRETER Unavailable Unavailable Rounds, M DAMASO PARK INTERPRETER Unavailable Unavailable Rounds, M DAMASO PARK INTERPRETER Unavailable Unavailable Rounds, M DAMASO PARK INTERPRETER Unavailable Unavailable Rounds, M DAMASO PARK INTERPRETER Unavailable Unavailable Rounds, M DAMASO PARK INTERPRETER Unavailable Unavailable Rounds, M DAMASO PARK INTERPRETER Unavailable Unavailable Rounds, M DAMASO PARK INTERPRETER Unavailable Unavailable Rounds, M DAMASO PARK INTERPRETER Unavailable Unavailable Rounds, M DAMASO PARK INTERPRETER Unavailable Unavailable Rounds, M DAMASO PARK INTERPRETER Unavailable Unavailable Rounds, M DAMASO PARK INTERPRETER Unavailable Unavailable Rounds, M DAMASO PARK INTERPRETER Unavailable Unavailable Rounds, M DAMASO PARK INTERPRETER Unavailable Unavailable Rounds, M DAMASO PARK INTERPRETER Unavailable Unavailable Rounds, M DAMASO PARK INTERPRETER Unavailable Unavailable Rounds, M DAMASO PARK INTERPRETER Unavailable Unavailable Rounds, M DAMASO PARK INTERPRETER Unavailable Unavailable Rounds, M DAMASO PARK INTERPRETER Unavailable Unavailable Rounds, M DAMASO PARK INTERPRETER Unavailable Unavailable Rounds, M DAMASO PARK INTERPRETER Unavailable Unavailable Rounds, M DAMASO PARK INTERPRETER Unavailable Unavailable Rounds, M DAMASO PARK INTERPRETER Unavailable Unavailable Rounds, M DAMASO PARK INTERPRETER Unavailable Unavailable Rounds, M DAMASO PARK INTERPRETER Unavailable Unavailable Rounds, M DAMASO PARK INTERPRETER Unavailable Unavailable Rounds, M DAMASO PARK INTERPRETER Unavailable Unavailable Rounds, M DAMASO PARK INTERPRETER Unavailable Unavailable Rounds, M DAMASO PARK INTERPRETER Unavailable Unavailable Rounds, M DAMASO PARK INTERPRETER Unavailable Unavailable Rounds, M DAMASO PARK INTERPRETER Unavailable Unavailable Rounds, M DAMASO PARK INTERPRETER Unavailable Unavailable Rounds, M DAMASO PARK INTERPRETER Unavailable Unavailable Rounds, M DAMASO PARK INTERPRETER Unavailable Unavailable Rounds, M DAMASO PARK INTERPRETER Unavailable Unavailable Rounds, M DAMASO PARK INTERPRETER Unavailable Unavailable Rounds, M DAMASO PARK INTERPRETER Unavailable Unavailable Rounds, M DAMASO PARK INTERPRETER Unavailable Unavailable Rounds, M DAMASO PARK INTERPRETER Unavailable Unavailable Rounds, M DAMASO PARK INTERPRETER Unavailable Unavailable Rounds, M DAMASO PARK INTERPRETER Unavailable Unavailable Rounds, M DAMASO PARK INTERPRETER Unavailable Unavailable Rounds, M DAMASO PARK INTERPRETER Unavailable Unavailable Rounds, M DAMASO PARK INTERPRETER Unavailable Unavailable Rounds, M DAMASO PARK INTERPRETER Unavailable Unavailable Rounds, M DAMASO PARK INTERPRETER Unavailable Unavailable Rounds, M DAMASO PARK INTERPRETER Unavailable Unavailable Rounds, M DAMASO PARK INTERPRETER Unavailable Unavailable Rounds, M DAMASO PARK INTERPRETER Unavailable Unavailable Rounds, M DAMASO PARK INTERPRETER Unavailable Unavailable Rounds, M DAMASO PARK INTERPRETER Unavailable Unavailable Rounds, M DAMASO PARK INTERPRETER Unavailable Unavailable Rounds, M DAMASO PARK INTERPRETER Unavailable Unavailable Rounds, M DAMASO PARK INTERPRETER Unavailable Unavailable Rounds, M DAMASO PARK INTERPRETER Unavailable Unavailable Rounds, M DAMASO PARK INTERPRETER Unavailable Unavailable Rounds, M DAMASO PARK INTERPRETER Unavailable Unavailable Rounds, M DAMASO PARK INTERPRETER Unavailable Unavailable Mingo, D Jake PA Unavailable Unavailable Mingo, D Jake PA Unavailable Unavailable Mingo, D Jake PA Unavailable Unavailable Mingo, D Jake PA Unavailable Unavailable Mingo, D Jake PA Unavailable Unavailable Mingo, D Jake PA Unavailable Unavailable Mingo, D Jake PA Unavailable Unavailable Mingo, D Jake PA Unavailable Unavailable Mingo, D Jake PA Unavailable Unavailable Mingo, D Jake PA Unavailable Unavailable Mingo, D Jake PA Unavailable Unavailable Mingo, D Jake PA Unavailable Unavailable Mingo, D Jake PA Unavailable Unavailable Mingo, D Jake PA Unavailable Unavailable Mingo, D Jake PA Unavailable Unavailable Mingo, D Jake PA Unavailable Unavailable Mingo, D Jake PA Unavailable Unavailable Mingo, D Jake PA Unavailable Unavailable Mingo, D Jake PA Unavailable Unavailable Mingo, D Jake PA Unavailable Unavailable Mingo, D Jake PA Unavailable Unavailable Mingo, D Jake PA Unavailable Unavailable Mingo, D Jake PA Unavailable Unavailable Mingo, D Jake PA Unavailable Unavailable Mingo, D Jake PA Unavailable Unavailable Mingo, D Jake PA Unavailable Unavailable Mingo, D Jake PA Unavailable Unavailable Mingo, D Jake PA Unavailable Unavailable Mingo, D Jake PA Unavailable Unavailable Mingo, D Jake PA Unavailable Unavailable Mingo, D Jake PA Unavailable Unavailable Mnigo, D Jake PA Unavailable Unavailable Mingo, D Jake PA Unavailable Unavailable Mingo, D Jake PA Unavailable Unavailable Mingo, D Jake PA Unavailable Unavailable Mingo, D Jake PA Unavailable Unavailable Mingo, D Jake PA Unavailable Unavailable Mingo, D Jake PA Unavailable Unavailable Mingo, D Jake PA Unavailable Unavailable Mingo, D Jake PA Unavailable Unavailable Mingo, D Jake PA Unavailable Unavailable Mingo, D Jake PA Unavailable Unavailable Mingo, D Jake PA Unavailable Unavailable Mingo, D Jake PA Unavailable Unavailable Mingo, D Jake PA Unavailable Unavailable Mingo, D Jake PA Unavailable Unavailable Mingo, D Jake PA Unavailable Unavailable Mingo, D Jake PA Unavailable Unavailable Mingo, D Jake PA Unavailable Unavailable Mingo, D Jake PA Unavailable Unavailable Mingo, D Jake PA Unavailable Unavailable Mingo, D Jake PA Unavailable Unavailable Mingo, D Jake PA Unavailable Unavailable Mingo, D Jake PA Unavailable Unavailable Mingo, D Jake PA Unavailable Unavailable Mingo, D Jake PA Unavailable Unavailable Mingo, D Jake PA Unavailable Unavailable Mingo, D Jake PA Unavailable Unavailable Mingo, D Jake PA Unavailable Unavailable Mingo, D Jake PA Unavailable Unavailable Mingo, D Jake PA Unavailable Unavailable Mingo, D Jake PA Unavailable Unavailable Mingo, D Jake PA Unavailable Unavailable Mingo, D Jake PA Unavailable Unavailable Mingo, D Jake PA Unavailable Unavailable Mingo, D Jake PA Unavailable Unavailable Mingo, D Jake PA Unavailable Unavailable Mingo, D Jake PA Unavailable Unavailable Nydia Cruz MD Unavailable Unavailable [...] Nydia Cruz MD Unavailable Unavailable Anthony, O Lynnette MIGUEL Unavailable Unavailable Anthony, O Lynnette MIGUEL Unavailable Unavailable Anthony, O Lynnette MD Unavailable Unavailable Anthony, O Lynnette MD Unavailable Unavailable Anthony, O Lynnette MD Unavailable Unavailable ANDREE, M GENARO PA [...] is protected by Article 27-F of the [facility] Public Health law. If you continue you may have access to information: Regarding HIV / AIDS; Provided by facilities licensed or operated by the [facility] Office of Mental Health; or Provided by the [facility] Office for People With Developmental Disabilities. If such information is present, then the following [facility] mandated warning applies: This information has [...] law may result in a fine or long term sentence or both. A general authorization for the release of medical or other information is NOT sufficient authorization for further disc losure. Encounters Encounter Providers Location Date Indications Data Source(s ) Outpatient Attender: Jake REHMAN [facility] 02:40:00 PM EDT [facility] Outpatient Attender: Jake REHMAN [facility] 10:20:00 AM EDT [facility] ([facility] Outpatient Attender: Jake REHMAN [facility] 11:15:00 AM EDT [facility] ([facility] Outpatient Attender: ASAEL Lopez/Sherlyn/[place] 01/09/2021 11:30:00 AM EDT [facility] ([facility] Outpatient Attender: DAMASO Worthington NP [facility] 10/12/2020 1 0:00:00 AM EST [facility] ([facility] Outpatient Attender: GENARO REHMAN Physical Therapy 07/11 10:00:00 AM EST [facility] ([facility]) Outpatient Attender: DAMASO Worthington NP [facility] 07/02/2020 0 9:40:00 AM EST [facility] ([facility] ) Outpatient Attender: GENARO REHMAN Physical Therapy 06/10 09:15:00 AM EST [facility] ([facility]) Outpatient Attender: Lynnette Cruz MD [facility] 05/24/2020 09:00:00 AM EDT [facility] ([facility] Outpatient Attender: DAMASO Worthington NP [facility] 05/21/2020 1 0:45:00 AM EDT [facility] ([facility] OFFICE OUTPATIENT NEW 30 MINUTES Attender: GENARO REHMAN Phys ical Therapy 05/08/2020 08:30:00 AM EDT [facility] ([facility]) Outpatient Attender: DAMASO Worthington NP [facility] 04/26/2020 1 0:45:00 AM EDT [facility] ([facility] ) Outpatient Attender: DAMASO Worthington PARK INTERPRETER [facility] 04/13/2020 1 1:30:00 AM EDT [facility] ([facility] ) Immunizations Vaccine Date Status Description Data Source(s) New in 2012. IIV4 05/24/2021 02:56:00 PM EDT completed [facility] ([facility] Medications Medication Brand Name Start Date Product Form Dose Route Admi nistrative Instructions Pharmacy Instructions Status Indications Reaction Description Data Source(s) Acetaminophen 325 MG / Hydrocodone Bitartrate 5 MG Ora l Tablet 5-325 mg HYDROCODONE/ACETAMINOPHEN 05/29/2021 12:00:00 AM EDT tablet 16 TAKE 1 TABLET BY MOUTH EVERY 6 HOURS NEEDED FOR PAIN MAXIMUM DAILY DOSE = 4 TAKE 1 TABLET BY MOUTH EVERY 6 HOURS NEEDED FOR PAIN MAXIMUM DAILY DOSE = 4 SOLD: 05/29/2021 [facility] 80 mg 05/25/2021 12:00:00 AM EDT tablet 30 TAKE ONE TABLET BY MOUTH TWICE A DAY TAKE ONE TABLET BY MOUTH TWICE A DAY SOLD: 05/27/2021 [facility] 2 % 05/25/2021 12:00:00 AM EDT ointment 22 APPLY TO AFFECTED AREA(S) TWO TIMES A DAY FOR 10 DAYS APPLY TO AFFECTED AREA(S) TWO TIMES A DAY FOR 10 DAYS SOLD: 05/27/2021 [facility] pantoprazole 40 MG Delayed Release Oral Tablet PANTOPRAZOLE SODIUM 05/25/2021 12:00:00 AM EDT tablet,delayed release (DR/EC) 30 T ISRAEL ONE TABLET BY MOUTH EVERY DAY TAKE ONE TABLET BY MOUTH EVERY DAY SOLD: 05/27/2021 [facility] Mupirocin 0.02 MG/MG Topical Ointment Mupirocin 05/24/2021 12:00:00 AM EDT active [facility] ([facility] Citalopram 20 MG Oral Tablet CITALOPRAM HYDROBROMIDE 05/08/2021 12:00:00 AM EDT tablet 30 TAKE ONE TABLET BY MOUTH AT BEDT SONIA TAKE ONE TABLET BY MOUTH AT BEDTIME SOLD: 05/10/2021 [facility] Citalopram 20 MG Oral Tablet Citalopram Hydrobromide 05/08/2021 12:00:00 AM EDT ORAL active [facility] ( [facility] Citalopram 10 MG Oral Tablet Citalopram Hydrobromide 04/24/2021 12:00:00 AM EDT ORAL completed [facility] ([facility] 10 mg 04/24/2021 12:00:00 AM EDT tablet 30 TAKE ONE TABLET BY MOUTH AT BEDTIME TAKE ONE TABLET BY MOUTH AT BEDTIME SOLD: 04/25/2021 [facility] 30 mg 01/10/2021 12:00:00 AM EDT capsule,delayed release (DR/EC) 30 TAKE ONE CAPSULE BY MOUTH EVERY DAY TAKE ONE CAPSULE BY MOUTH EVERY DAY SOLD: 01/14/2021 [facility] 10 mg 01/10/2021 12:00:00 AM EDT capsule 90 TAKE 1 TO 2 CAPSULES BY MOUTH EVERY 6 HOURS NEEDED FOR ABDOMINAL CRAMPING TAKE 1 TO 2 CAPSULES BY MOUTH EVERY 6 HOURS NEEDED FOR ABDOMINAL CRAMPING SOLD: 01/14/2021 [facility] lansoprazole 30 MG Delayed Release Oral Capsule Lansoprazole 01/09/2021 12:00:00 AM EDT active [facility] ([facility] ) Dicyclomine Hydrochloride 10 MG Oral Capsule Dicyclomine HCL 01/09/2021 12:00:00 AM EDT ORAL active [facility] ([facility], ) 500 mg 12/03/2020 12:00:00 AM EDT tablet 30 TAKE ONE TABLET BY MOUTH TWICE A DAY WITH FOOD TAKE ONE TABLET BY MOUTH TWICE A DAY WITH FOOD SOLD: 12/03/2020 [facility] 750 mg 12/03/2020 12:00:00 AM EDT tablet 21 TAKE ONE TABLET BY MOUTH THREE TIMES A DAY TAKE ONE TABLET BY MOUTH THREE TIMES A DAY SOLD: 12/03/2020 [facility] 0.5 % 10/12/2020 12:00:00 AM EST cream 15 APPLY TO RASH ON LEFT NECK TWO TIMES A DAY APPLY TO RASH ON LEFT NECK TWO TIMES A DAY SOLD: 10/13/2020 [facility] Triamcinolone Acetonide 5 MG/ML Topical Cream Triamcinolone Acetonide 10/12/2020 12:00:00 AM EST active M [facility] ([facility] 30 mg 10/12/2020 12:00:00 AM EST capsule,delayed release (DR/EC) 30 TAKE ONE CAPSULE BY MOUTH EVERY DAY TAKE ONE CAPSULE BY MOUTH EVERY DAY SOLD: 10/13/2020 [facility] benzonatate 100 MG Oral Capsule BENZONATATE 09/14/2020 12:00:00 AM EST capsule 30 TAKE ONE CAPSULE BY MOUTH THREE TIMES A DAY FOR COUGH TAKE ONE CAPSULE BY MOUTH THREE TIMES A DAY FOR COUGH SOLD: 09/14/2020 [facility] meloxicam 15 MG Oral Tablet Meloxicam 06/19/2020 12:00:00 AM EST ORAL completed [facility] ([facility] 15 mg 06/19/2020 12:00:00 AM EST tablet 30 TAKE 1 TABLET BY MOUTH EVERY DAY WITH FOOD TAKE 1 TABLET BY MOUTH EVERY DAY WITH FOOD SOLD: 06/21/2020 [facility] 4 mg 06/15/2020 12:00:00 AM [...] TABLET BY MOUTH TWICE A DAY SOLD: 04/15/2021 [facility] 80 mg 06/15/2020 12:00:00 AM [...] AND VOMITING SOLD: 09/11/2020 [facility] 80 mg 06/15/2020 12:00:00 AM EST tablet 50 TAKE ONE TABLET BY MOUTH TWICE A DAY TAKE ONE TABLET BY MOUTH TWICE A DAY SOLD: 06/18/2020 [facility] 100 mg 06/14/2020 12:00:00 AM [...] HCL 05/24/2020 12:00:00 AM EDT active [facility] ([facility] meloxicam 7.5 MG Oral Tablet [...] active M [facility] ([facility] pantoprazole 40 MG Delayed Release Oral Tablet PANTOPRAZOLE SODIUM 05/21/2020 12:00:00 AM EDT tablet,delayed release (DR/EC) 30 T ISRAEL ONE TABLET BY MOUTH EVERY DAY TAKE ONE TABLET BY MOUTH EVERY DAY SOLD: 05/23/2020 [facility] meloxicam 7.5 MG Oral Tablet Meloxicam 05/08/2020 12:00:00 AM EDT ORAL completed [facility] ([facility]) meloxicam 7.5 MG Oral Tablet MELOXICAM [...] type / Coverage type Policy ID Covered constitution party ID Covered constitution party's relationship to whitney Policy Whitney Plan Information [facility] COMMUNITY PLAN MCDO [id number] SP [id number] [facility] I [id number] Self [id number] [facility] Community Plan Commercial [id number] Self MEDICAID [id number] SP [id number] [facility]) S [id number] S [id number] [employer] COMMUNITY PLAN [facility] [id number] SP [id number] [facility]) P [id number] S [id number] [employer] COMMUNITY PLAN [facility] [id number] SP [id number] Problems, Conditions, and Diagnoses Code Display Name Description Problem Type Effective Dates Data Source(s) G47.00 Insomnia Insomnia Problem 05/08/2021 12:00:00 AM ED T [facility] ([facility] G43.909 Migraine Migraine Problem 04/24/2021 12:00:00 AM ED T [facility] ([facility] F33.1 Moderate recurrent major depression Moderate rec urrent major depression Problem 04/24/2021 12:00:00 AM EDT [facility] ([facility] Surgeries/Procedures Procedure Description Date Indications Data Source(s) OFFICE OUTPATIENT VISIT 15 MINUTES 05/24/2021 12:00:00 AM EDT [facility] ([facility] OFFICE OUTPATIENT VISIT 15 MINUTES 05/08/2021 12:00:00 AM EDT [facility] ([facility] OFFICE OUTPATIENT VISIT 25 MINUTES 04/24/2021 12:00:00 AM EDT [facility] ([facility] THERAPEUTIC PX 1/> AREAS EACH 15 MIN EXERCISES 12:00:00 AM EST [facility] ([facility] MANUAL THERAPY TQS 1/> REGIONS EACH 15 MINUTES 12:00:00 AM EST [facility] ([facility] APPL MODALITY 1/> AREAS ELEC STIMJ EA 15 MIN 0 12:00:00 AM EST [facility] ([facility] ) THERAPEUTIC PX 1/> AREAS EACH 15 MIN EXERCISES 12:00:00 AM EST [facility] ([facility] MANUAL THERAPY TQS 1/> REGIONS EACH 15 MINUTES 12:00:00 AM EST [facility] ([facility] ) APPL MODALITY 1/> AREAS ELEC STIMJ EA 15 MIN 0 12:00:00 AM EST [facility] ([facility] ) THERAPEUTIC PX 1/> AREAS EACH 15 MIN EXERCISES 12:00:00 AM EST [facility] ([facility] MANUAL THERAPY TQS 1/> REGIONS EACH 15 MINUTES 12:00:00 AM EST [facility] ([facility] ) Magnetic Resonance Angiogtaphy Head W/O Contrast Material(S) 06/12/2020 12:00:00 AM EST [facility] ([facility] Magnetic Resonance Angiogtaphy Head W/O Contrast Material(S) 06/12/2020 12:00:00 AM EST [facility] ([facility] MRI BRAIN BRAIN STEM W/O CONTRAST MATERIAL 06/12/2020 12:00:00 AM EST [facility] ([facility] MRI BRAIN BRAIN STEM W/O CONTRAST MATERIAL 06/12/2020 12:00:00 AM EST [facility] ([facility] APPL MODALITY 1/> AREAS ELEC STIMJ EA 15 MIN 0 12:00:00 AM EDT [facility] ([facility] THERAPEUTIC PX 1/> AREAS EACH 15 MIN EXERCISES 12:00:00 AM EDT [facility] ([facility]) MANUAL THERAPY TQS 1/> REGIONS EACH 15 MINUTES 12:00:00 AM EDT [facility] ([facility] Physical Therapy Eval - Low Complexity 05/30/2020 12:0 0:00 AM EDT [facility] ([facility] ) Needle electromyography, each extremity, with related paraspinal areas, when performed, done with nerve conduction, amplitude and latency/velocity study; complete, five or more muscles studied, innervated by three or more nerves or four or more spinal levels (list separately in addition to the code for primary procedure). 05/30/2020 12:00:00 AM EDT MED[facility] T ([facility] ) Needle electromyography, each extremity, with related paraspinal areas, when performed, done with nerve conduction, amplitude and latency/velocity study; complete, five or more muscles studied, innervated by three or more nerves or four or more spinal levels (list separately in addition to the code for primary procedure). 05/30/2020 12:00:00 AM EDT MED[facility] T ([facility] ) Nerve Conduction 9-10 Studies 05/30/2020 12:00:00 AM E DT [facility] ([facility] Results ID Date Data Source [id number] 05/24/2021 03:37:00 PM EDT [facility] ([facility] Name Value Range Interpretation Code Description Data Suze rce(s) Supporting Document(s) Bacteria identified in Unspecified specimen by Aerobe culture Laboratory test result [facility] ([facility] SRC:RASH NECK Bacteria identified in Unspecified specimen by Culture Laborator y test result [facility] ([facility] ) SRC:RASH NECK ID Date Data Source [id number] 05/24/2021 03:37:00 PM EDT [facility] Name Value Range Interpretation Code Description Data Suze rce(s) Supporting Document(s) Bacteria identified in Unspecified specimen by Aerobe culture Laboratory test result [facility] ([facility] ID Date Data Source 03/11/2021 12:00:00 AM EDT [facility] Name Value Range Interpretation Code Description Data Suze rce(s) Supporting Document(s) SARS-CoV2 Rapid Antigen Negative [facility] This lab was ordered by [facility] and reported by [facility]. ID Date Data Source [id number] 03/01/2021 08:26:00 PM EDT [facility] ([facility] Name Value Range Interpretation Code Description Data Suze rce(s) Supporting Document(s) Troponin I.cardiac [Mass/volume] in Serum or Plasma Laboratory test result [facility] ([facility] Laboratory test finding (navigational concept) 0.00 ng/mL 0 .00-0.08 Normal (applies to non-numeric results) [facility] ([facility] ID Date Data Source [id number] 03/01/2021 08:15:00 PM EDT [facility] ([facility] Name Value Range Interpretation Code Description Data Suze rce(s) Supporting Document(s) Respiratory Panel Laboratory test result [facility] ([facility] This respiratory PCR panel detects Influ esau A H1, H3 and 2009 H1 viruses, Influenza B virus, Resp iratory Syncytial Virus, Human metapneumovirus, Parainfluenza virus 1, 2, 3 and 4, Adenovirus, Rhinovirus/Enterovirus, Coronavirus HKU1, NL63, OC43, 229E and SARS-CoV-2 (COVID 19), Bordetella pertussis, Bordetella parapertussis, Mycoplasma pneumoniae and Chlamydia pneumoniae. NEGATIVE by MULTIPLEXED NUCLEIC ACID PCR SARS-CoV-2 (COVID 19) NEGATIVE - SARS-CoV-2 (COVID19) ID Date Data Source [id number] 03/01/2021 08:15:[address] [facility] Name Value Range Interpretation Code Description Data Suze rce(s) Supporting Document(s) SARS-CoV-2 (COVID 19) NEGATIVE - SARS-CoV-2 (COVID19) [facility] This lab was ordered by [facility] a nd reported by [facility]. ID Date Data Source [id number] 03/01/2021 04:47:00 PM EDT [facility] ([facility] Name Value Range Interpretation Code Description Data Suze rce(s) Supporting Document(s) Troponin I.cardiac [Mass/volume] in Serum or Plasma Laboratory test result [facility] ([facility] Laboratory test finding (navigational concept) 0.00 ng/mL 0 .00-0.08 Normal (applies to non-numeric results) [facility] ([facility] ID Date Data Source [id number] 03/01/2021 04:24:00 PM EDT [facility] ([facility] [facility] Name Value Range Interpretation Code Description Data Suze rce(s) Supporting Document(s) Blood Urea Nitrogen 13 mg/dL 7-18 Normal (applies to non-nume kiet results) [facility] ([facility] Glucose, Fasting 84 mg/dL 70-100 Normal (applies to non-numeric results) [facility] ([facility] Creatinine For GFR 0.69 mg/dL 0.55-1.30 Normal (applies to non -numeric results) [facility] ([facility] Glomerular Filtration Rate Laboratory test result Normal (applies to non- numeric results) [facility] ([facility] ) <content>Units are mL/min/1.73 m2</content>
<content></content>
<content>Chronic Kidney Disease Staging per NKF:</content>
<content></content>
<content>Stage I & II GFR >=60 Normal to Mildly Decreased</content>
<content>Stage III GFR 30- 59 Moderately Decreased</content>
<content>Stage IV GFR 15-29 Severely Decreased</content>
<content>Stage V GFR <15 Very Little GFR Left</content>
<content>ESRD GFR <15 on PROGRAM ASSISTANT</content>
<content></content> Sodium Level 140 meq/L 136-145 Normal (applies to non-numeric res ults) [facility] ([facility] Potassium Serum 4.2 meq/L 3.5-5.1 Normal (applies to non-numeric results) [facility] ([facility] Chloride Level 104 meq/L 98-107 Normal (applies to non-numeric r esults) [facility] ([facility] Carbon Dioxide Level 30 meq/L 21-32 Normal (applies to non-num debbie results) [facility] ([facility] Anion Gap 6 meq/L 8-16 Below low normal [facility] ( [facility] Calcium Level 9.2 mg/dL 8.5-10.1 Normal (applies to non-numeric re sults) [facility] ([facility] ID Date Data Source [id number] 03/01/2021 04:24:00 PM EDT [facility] ([facility] Name Value Range Interpretation Code Description Data Suze rce(s) Supporting Document(s) White Blood Count 7.4 10 4.0-10.0 Normal (applies to non-numeri c results) [facility] ([facility] Red Blood Count 4.93 10 4.00-5.40 Normal (applies to non-numeric results) [facility] ([facility] Hemoglobin 13.8 g/dL 12.0-15.5 Normal (applies to non-numeric resul ts) [facility] ([facility] Hematocrit 42.3 % 36.0-47.0 Normal (applies to non-numeric resul ts) [facility] ([facility] Mean Corpuscular Volume 85.8 fl 80.0-96.0 Normal ( applies to non-numeric results) [facility] ([facility] Mean Corpuscular Hemoglobin 28.0 pg 27.0-33.0 Norm al (applies to non-numeric results) [facility] ([facility] ) Mean Corpuscular HGB Conc 32.6 g/dL 32.0-36.5 Normal (applies to non-numeric results) [facility] ( [facility] Red Cell Distribution Width 14.0 % 11.5-14.5 Norm al (applies to non-numeric results) [facility] ([facility] ) Neutrophils % 67.9 % 36.0-66.0 Above high normal [facility] ([facility] Platelet Count, Automated 305 10 150-450 Normal (applies to non-numeric results) [facility] ([facility] ) Lymph % 21.7 % 24.0-44.0 Below low normal [facility] ( [facility] Phelps % 7.7 % 2.0-8.0 Normal (applies to non-numeric resul ts) [facility] ([facility] Eos % 1.8 % 0.0-3.0 Normal (applies to non-numeric resul ts) [facility] ([facility] Baso % 0.5 % 0.0-1.0 Normal (applies to non-numeric resul ts) [facility] ([facility] Nucleated Red Blood Cell % 0.0 % 0-0 Normal (applies to n on-numeric results) [facility] ([facility] Immature Granulocyte % 0.4 % 0-3.0 Normal (applies to non-n umeric results) [facility] ([facility] Lymph # 1.6 10 1.5-5.0 Normal (applies to non-numeric resul ts) [facility] ([facility] Neutrophils # 5.0 10 1.5-8.5 Normal (applies to non-numeric re sults) [facility] ([facility] Phelps # 0.6 10 0.0-0.8 Normal (applies to non-numeric resul ts) [facility] ([facility] Eos # 0.1 10 0.0-0.5 Normal (applies to non-numeric resul ts) [facility] ([facility] Baso # 0.0 10 0.0-0.2 Normal (applies to non-numeric resul ts) [facility] ([facility] ID Date Data Source [id number] 12/02/2020 10:11:00 PM EDT [facility] ([facility] Name Value Range Interpretation Code Description Data Suze rce(s) Supporting Document(s) Laboratory test finding (navigational concept) 45.0 % 3 8.0-51.0 Normal (applies to non-numeric results) [facility] ([facility] Laboratory test finding (navigational concept) 125 mg/dL 7 0-105 Above high normal [facility] ([facility] ) Laboratory test finding (navigational concept) 3.3 meq/L 3 .5-5.1 Below low normal [facility] ([facility] ) Laboratory test finding (navigational concept) 4.9 mg/dL 4 .5-5.3 Normal (applies to non-numeric results) [facility] ([facility] Laboratory test finding (navigational concept) 140 meq/L 1 36-145 Normal (applies to non-numeric results) [facility] ([facility] Laboratory test finding (navigational concept) 104 meq/L 9 8-109 Normal (applies to non-numeric results) [facility] ([facility] Laboratory test finding (navigational concept) 26.0 MM/L 2 3.0-27.0 Normal (applies to non-numeric results) [facility] ([facility] Laboratory test finding (navigational concept) 18 mg/dL 8 -26 Normal (applies to non-numeric results) [facility] ([facility]) Laboratory test finding (navigational concept) 0.7 mg/dL 0 .6-1.3 Normal (applies to non-numeric results) [facility] ([facility] ID Date Data Source [id number] 12/02/2020 10:02:00 PM EDT [facility] ([facility] Name Value Range Interpretation Code Description Data Suze rce(s) Supporting Document(s) Lipoprotein lipase [Enzymatic activity/volume] in Serum or P lasma 144 U/L 73-393 Normal (applies to non-numeric results) [facility] ([facility] ID Date Data Source [id number] 12/02/2020 10:02:00 PM EDT [facility] ([facility] Name Value Range Interpretation Code Description Data Suze rce(s) Supporting Document(s) Ast/Sgot 17 U/L 7-37 Normal (applies to non-numeric resul ts) [facility] ([facility] Alkaline Phosphatase 117 U/L 45-117 Normal (applies to non-num debbie results) [facility] ([facility] Alt/SGPT 28 U/L 12-78 Normal (applies to non-numeric resul ts) [facility] ([facility] Bilirubin,Direct 0.2 mg/dL 0.0-0.2 Normal (applies to non-numeric results) [facility] ([facility] Bilirubin,Total 0.5 mg/dL 0.2-1.0 Normal (applies to non-numeric results) [facility] ([facility] Albumin/Globulin Ratio 0.9 1.2-2.2 Below low normal [facility] ([facility] Total Protein 7.7 GM/DL 6.4-8.2 Normal (applies to non-numeric re sults) [facility] ([facility] Albumin 3.7 GM/DL 3.2-5.2 Normal (applies to non-numeric resul ts) [facility] ([facility] ID Date Data Source [id number] 12/02/2020 10:02:00 PM EDT [facility] ([facility] Name Value Range Interpretation Code Description Data Suze rce(s) Supporting Document(s) Red Blood Count 4.66 10 4.00-5.40 Normal (applies to non-numeric results) [facility] ([facility] White Blood Count 8.0 10 4.0-10.0 Normal (applies to non-numeri c results) [facility] ([facility] Hemoglobin 13.0 g/dL 12.0-15.5 Normal (applies to non-numeric resul ts) [facility] ([facility] Hematocrit 41.0 % 36.0-47.0 Normal (applies to non-numeric resul ts) [facility] ([facility] Mean Corpuscular Hemoglobin 27.9 pg 27.0-33.0 Norm al (applies to non-numeric results) [facility] ([facility] ) Mean Corpuscular HGB Conc 31.7 g/dL 32.0-36.5 Below low normal [facility] ([facility] Mean Corpuscular Volume 88.0 fl 80.0-96.0 Normal ( applies to non-numeric results) [facility] ([facility] ) Platelet Count, Automated 305 10 150-450 Normal (applies to non-numeric results) [facility] ([facility] ) Red Cell Distribution Width 14.0 % 11.5-14.5 Norm al (applies to non-numeric results) [facility] ([facility] ) Neutrophils % 59.0 % 36.0-66.0 Normal (applies to non-numeric re sults) [facility] ([facility] Lymph % 29.5 % 24.0-44.0 Normal (applies to non-numeric resul ts) [facility] ([facility] Phelps % 9.0 % 2.0-8.0 Above high normal [facility] ([facility] Eos % 1.5 % 0.0-3.0 Normal (applies to non-numeric resul ts) [facility] ([facility] Nucleated Red Blood Cell % 0.0 % 0-0 Normal (applies to n on-numeric results) [facility] ([facility] Baso % 0.5 % 0.0-1.0 Normal (applies to non-numeric resul ts) [facility] ([facility] Immature Granulocyte % 0.5 % 0-3.0 Normal (applies to non-n umeric results) [facility] ([facility] Lymph # 2.4 10 1.5-5.0 Normal (applies to non-numeric resul ts) [facility] ([facility] Neutrophils # 4.8 10 1.5-8.5 Normal (applies to non-numeric re sults) [facility] ([facility] Eos # 0.1 10 0.0-0.5 Normal (applies to non-numeric resul ts) [facility] ([facility] Phelps # 0.7 10 0.0-0.8 Normal (applies to non-numeric resul ts) [facility] ([facility] Baso # 0.0 10 0.0-0.2 Normal (applies to non-numeric resul ts) [facility] ([facility] ID Date Data Source [id number] 12/02/2020 09:28:00 PM EDT [facility] ([facility] Name Value Range Interpretation Code Description Data Suze rce(s) Supporting Document(s) Reflex Urine Culture Laboratory test result Norm al (applies to non-numeric results) [facility] ([facility] ) FULL REPORT IN LAB NOTES ([facility] and [facility] ). NO GROWTH CLINICAL SIGNIFICANCE 1 ORGANISM ID Date Data Source [id number] 12/02/2020 09:28:00 PM EDT [facility] Name Value Range Interpretation Code Description Data Suze rce(s) Supporting Document(s) Appearance, Urine RFX Laboratory test result Above high no rmal [facility] ([facility] Color, Urine RFX Laboratory test result Normal ( applies to non-numeric results) [facility] ([facility] ) PH,Urine RFX 7.0 units 5.0-9.0 Normal (applies to non-numeric res ults) [facility] ([facility] Specific [place] Ur Auto RFX 1.018 1.002-1.035 Nor mal (applies to non-numeric results) [facility] ([facility] ) Protein, Urine Auto RFX Laboratory test result N ormal (applies to non-numeric results) [facility] ([facility] ) Ketone, Urine Auto RFX Laboratory test result No rmal (applies to non-numeric results) [facility] ([facility] ) Glucose, Urine (Ua) Auto RFX Laboratory test result Normal (applies to non- numeric results) [facility] ([facility] ) Nitrite, Urine Auto RFX Laboratory test result N ormal (applies to non-numeric results) [facility] ([facility] ) Bilirubin, Urine Auto RFX Laboratory test result Normal (applies to non- numeric results) [facility] ([facility] ) Urobilinogen, Urine Auto RFX 0.2 mg/dL 0.0-2.0 Nor mal (applies to non-numeric results) [facility] ([facility] ) Leukocyte Esterase Ur Auto RFX Laboratory test result Abov e high normal [facility] ([facility] Blood, Urine Blood RFX Laboratory test result No rmal (applies to non-numeric results) [facility] ([facility] ) WBC, Urine Auto RFX 11 /HPF 0-3 Above high normal [facility] ([facility] RBC, Urine Auto RFX 3 /HPF 0-3 Normal (applies to non-nume kiet results) [facility] ([facility] Bacteria, Urine Auto RFX Laboratory test result Normal (applies to non-numeric results) [facility] ([facility] ) Squam Epithelial Cell Ur Aurfx 0 /HPF 0-6 N ormal (applies to non-numeric results) [facility] ([facility] ) Mucus, Urine RFX Laboratory test result Normal ( applies to non-numeric results) [facility] ([facility] ) Hyaline Cast, Urine Auto RFX 0 /LPF 0-1 Normal (appl ies to non-numeric results) [facility] ([facility] Amorphous Sediment RFX Laboratory test result Above high n ormal [facility] ([facility] ID Date Data Source [id number] 09/19/2020 12:00:00 AM EST [facility] Name Value Range Interpretation Code Description Data Suze rce(s) Supporting Document(s) SARS-CoV2 Rapid Antigen Negative [facility] This lab was ordered by [facility] and reported by [facility]. ID Date Data Source [id number] 09/13/2020 11:51:00 PM EST [facility] ([facility] Name Value Range Interpretation Code Description Data Suze rce(s) Supporting Document(s) Respiratory Panel Laboratory test result [facility] ([facility] This respiratory PCR panel detects Influ esau A H1, H3 and 2009 H1 viruses, Influenza B virus, Resp iratory Syncytial Virus, Human metapneumovirus, Parainfluenza virus 1, 2, 3 and 4, Adenovirus, Rhinovirus/Enterovirus, Coronavirus HKU1, NL63, OC43, 229E and SARS-CoV-2 (COVID 19), Bordetella pertussis, Bordetella parapertussis, Mycoplasma pneumoniae and Chlamydia pneumoniae. POSITIVE by MULTIPLEXED NUCLEIC ACID PCR SARS-CoV-2 (COVID 19) NEGATIVE - SARS-CoV-2 (COVID19) ORGANISM 1: HUMAN RHINOVIRUS/ENTEROVIRUS Rhinovirus is noted as causing the "common cold", but may also be involved in precipitating asthma attacks and severe complications. Enteroviruses can be associated with different clinical manifestations, including non-specific respiratory illness. These viruses are closely related and therefore not able to be reliably differentiated. ORGANISM 1: HUMAN RHINOVIRUS/ENTEROVIRUS ID Date Data Source [id number] 09/13/2020 11:51:00 PM EST [facility] Name Value Range Interpretation Code Description Data Suze rce(s) Supporting Document(s) SARS-CoV-2 (COVID 19) NEGATIVE - SARS-CoV-2 (COVID19) [facility] This lab was ordered by [facility] a nd reported by [facility]. ID Date Data Source [id number] 09/13/2020 09:23:00 PM EST [facility] ([facility] Name Value Range Interpretation Code Description Data Suze rce(s) Supporting Document(s) Glucose, Fasting 87 mg/dL 70-100 Normal (applies to non-numeric results) [facility] ([facility] Blood Urea Nitrogen 13 mg/dL 7-18 Normal (applies to non-nume kiet results) [facility] ([facility] Creatinine For GFR 0.74 mg/dL 0.55-1.30 Normal (applies to non -numeric results) [facility] ([facility] Sodium Level 139 meq/L 136-145 Normal (applies to non-numeric res ults) [facility] ([facility] Potassium Serum 4.2 meq/L 3.5-5.1 Normal (applies to non-numeric results) [facility] ([facility] Glomerular Filtration Rate Laboratory test result Normal (applies to non- numeric results) [facility] ([facility] ) <content>Units are mL/min/1.73 m2</content>
<content></content>
<content>Chronic Kidney Disease Staging per NKF:</content>
<content></content>
<content>Stage I & II GFR >=60 Normal to Mildly Decreased</content>
<content>Stage III GFR 30-59 Moderately Decreased</content>
<content>Stage IV GFR 15-29 Severely Decreased</content>
<content>Stage V GFR <15 Very Little GFR Left</content>
<content>ESRD GFR <15 on PROGRAM ASSISTANT</content>
<content></content> Chloride Level 105 meq/L 98-107 Normal (applies to non-numeric r esults) [facility] ([facility] Carbon Dioxide Level 29 meq/L 21-32 Normal (applies to non-num debbie results) [facility] ([facility] Calcium Level 9.1 mg/dL 8.5-10.1 Normal (applies to non-numeric re sults) [facility] Anion Gap 5 meq/L 8-16 Below low normal [facility] ( [facility] ID Date Data Source [id number] 09/13/2020 09:23:00 PM EST [facility] Name Value Range Interpretation Code Description Data Suze rce(s) Supporting Document(s) CPK Creatine Phosphokinase 102 U/L 26-192 Joya l (applies to non-numeric results) [facility] MB/CK Relative Index 0.98 Normal (applies to non-num debbie results) [facility] ([facility] <content>DIAGNOSIS CRITERIA</content>
<content>MMB ng/ml Relative Index (RI)</content>
<content>NON-AMI < or = 5 N/A</content>
<content>LINARES ZONE > 5 < or = 4</content>
<content>AMI > 5 > 4</content>
<content></content> CK-MB Value Mass Laboratory test result Normal ( applies to non-numeric results) [facility] ([facility] Troponin I Laboratory test result Normal (applies to non-n umeric results) [facility] ([facility] <content>Troponin I Reference Interval f or Siemens [place] LOCI:</content>
<content></content>
<content>99th Percentile= 0.00-0.045 ng/ml</content>
<content></content>
<content>Risk Stratification:</content>
<content><= 0.10 ng/ml Decreased Risk for Adverse Clinical</content>
<content>Events.</content>
<content>0.10-1.50 ng/ml Increased Risk for Adverse Clinical</content>
<content>Events. Evaluation of additional</content>
<content>criterion and/or repeat testing in 2-6</content>
<content>hours is suggested to rule out myocardial</content>
<content>damage.</content>
<content>>= 1.50 ng/ml Indicative of Myocardial Injury.</content>
<content></content> ID Date Data Source [id number] 09/13/2020 09:23:00 PM EST [facility] ([facility] Name Value Range Interpretation Code Description Data Suze rce(s) Supporting Document(s) White Blood Count 8.6 10 4.0-10.0 Normal (applies to non-numeri c results) [facility] ([facility] A Pathologist review of this differentia l can help in the evaluation of a differential diagnosis. Please order a Pathologist Review (PERISM) if deemed necessary. Results are subject to change if a Pathologist Review is performed. Red Blood Count 4.83 10 4.00-5.40 Normal (applies to non-numeric results) [facility] ([facility] Hemoglobin 13.5 g/dL 12.0-15.5 Normal (applies to non-numeric resul ts) [facility] ([facility] Mean Corpuscular Hemoglobin 28.0 pg 27.0-33.0 Norm al (applies to non-numeric results) [facility] ([facility] ) Mean Corpuscular Volume 86.7 fl 80.0-96.0 Normal ( applies to non-numeric results) [facility] ([facility] ) Hematocrit 41.9 % 36.0-47.0 Normal (applies to non-numeric resul ts) [facility] ([facility] Mean Corpuscular HGB Conc 32.2 g/dL 32.0-36.5 Normal (applies to non-numeric results) [facility] ([facility] Red Cell Distribution Width 13.7 % 11.5-14.5 Norm al (applies to non-numeric results) [facility] ([facility] ) Platelet Count, Automated 281 10 150-450 Normal (applies to non-numeric results) [facility] ([facility] ) Neutrophils % 68.7 % 36.0-66.0 Above high normal [facility] ([facility] Lymph % 18.5 % 24.0-44.0 Below low normal [facility] ( [facility] Baso % 0.2 % 0.0-1.0 Normal (applies to non-numeric resul ts) [facility] ([facility] Eos % 1.5 % 0.0-3.0 Normal (applies to non-numeric resul ts) [facility] ([facility] Phelps % 11.0 % 0.0-5.0 Above high normal [facility] ([facility] Immature Granulocyte % 0.1 % 0-3.0 Normal (applies to non-n umeric results) [facility] ([facility] Nucleated Red Blood Cell % 0.0 % 0-0 Normal (applies to n on-numeric results) [facility] ([facility] Lymph # 1.6 10 1.5-5.0 Normal (applies to non-numeric resul ts) [facility] ([facility] Neutrophils # 5.9 10 1.5-8.5 Normal (applies to non-numeric re sults) [facility] ([facility] Phelps # 1.0 10 0.0-0.8 Above high normal [facility] ([facility] Baso # 0.0 10 0.0-0.2 Normal (applies to non-numeric resul ts) [facility] ([facility] Eos # 0.1 10 0.0-0.5 Normal (applies to non-numeric resul ts) [facility] ([facility] ID Date Data Source [id number] 09/13/2020 12:00:00 AM EST [facility] Name Value Range Interpretation Code Description Data Suze rce(s) Supporting Document(s) SARS-CoV2 Rapid Antigen Negative [facility] and reported by [facility]. ID Date Data Source [id number] 07/10/2020 02:27:00 PM EST [facility] ([facility] Name Value Range Interpretation Code Description Data Suze rce(s) Supporting Document(s) Creatinine For GFR 0.77 mg/dL 0.55-1.30 Normal (applies to non -numeric results) [facility] ([facility] Glomerular Filtration Rate Laboratory test result Normal (applies to non- numeric results) [facility] ([facility] <content>Units are mL/min/1.73 m2</content>
<content></content>
<content>Chronic Kidney Disease Staging per NKF:</content>
<content></content>
<content>Stage I & II GFR >=60 Normal to Mildly Decreased</content>
<content>Stage III GFR 30-59 Moderately Decreased</content>
<content>Stage IV GFR 15-29 Severely Decreased</content>
<content>Stage V GFR <15 Very Little GFR Left</content>
<content>ESRD GFR <15 on PROGRAM ASSISTANT</content>
<content></content> ID Date Data Source [id number] 07/10/2020 02:27:00 PM EST [facility] ([facility] Name Value Range Interpretation Code Description Data Suze rce(s) Supporting Document(s) Urea nitrogen [Mass/volume] in Serum or Plasma 13 mg/dL 7 -18 Normal (applies to non-numeric results) [facility] ([facility]) ID Date Data Source [id number] 07/10/2020 02:27:00 PM EST [facility] ([facility]) Name Value Range Interpretation Code Description Data Suze rce(s) Supporting Document(s) Creatinine For GFR 0.77 mg/dL 0.55-1.30 [facility] ([facility]) Glomerular Filtration Rate Laboratory test result [facility] ([facility]) <content>Units are mL/min/1.73 m2</content>
<content></content>
<content>Chronic Kidney Disease Staging per [facility]:</content>
<content></content>
<content>Stage I & II GFR >=60 Normal to Mildly Decreased</content>
<content>Stage III GFR 30- 59 Moderately Decreased</content>
<content>Stage IV GFR 15-29 Severely Decreased</content>
<content>Stage V GFR <15 Very Little GFR Left</content>
<content>ESRD GFR <15 on PROGRAM ASSISTANT</content>
<content></content> ID Date Data Source [id number] 07/10/2020 02:27:00 PM EST [facility] ([facility]) Name Value Range Interpretation Code Description Data Suze rce(s) Supporting Document(s) Urea nitrogen [Mass/volume] in Serum or Plasma 13 mg/dL 7-18 [facility] ([facility]) Procedure Social History No Information Vital Signs ID Date Data Source UNK Name Value Range Interpretation Code Description Data Source(s) Body mass index (BMI) [Ratio] 32.2 kg/m2 32.2 k g/m2 [facility] ([facility] Oxygen saturation in Arterial blood by Pulse oximetry 97 % 97 % [facility] ([facility] Systolic blood pressure 118 mm[Hg] 118 mm[Hg] M EDENT ([facility] Diastolic blood pressure 84 mm[Hg] 84 mm[Hg] [facility] ([facility] Body temperature 98.2 [degF] 98.2 [degF] [facility] ([facility] Heart rate 87 /min 87 /min [facility] ([facility] Respiratory rate 16 /min 16 /min [facility] ( [facility] Body height 62 [in_i] 62 [in_i] [facility] ([facility] 5'2" Body weight 176.00 [lb_av] 176.00 [lb_av] MEDEN T ([facility] [place] body weight 110 [lb_av] 110 [lb_av] MEDEN T ([facility] Respiratory rate 16 /min 16 /min [facility] ( [facility] Body height 62 [in_i] 62 [in_i] [facility] ([facility] 5'2" [place] body weight 110 [lb_av] 110 [lb_av] MEDEN T ([facility] Body mass index (BMI) [Ratio] 32.0 kg/m2 32.0 k g/m2 [facility] ([facility] Systolic blood pressure 114 mm[Hg] 114 mm[Hg] M EDENT ([facility] Body weight 175.00 [lb_av] 175.00 [lb_av] MEDEN T ([facility] Diastolic blood pressure 80 mm[Hg] 80 mm[Hg] [facility] ([facility] Body temperature 98.0 [degF] 98.0 [degF] [facility] ([facility] Heart rate 80 /min 80 /min [facility] ([facility] Oxygen saturation in Arterial blood by Pulse oximetry 96 % 96 % [facility] ([facility] Body mass index (BMI) [Ratio] 31.8 kg/m2 31.8 k g/m2 [facility] ([facility] Oxygen saturation in Arterial blood by Pulse oximetry 98 % 98 % [facility] ([facility] Systolic blood pressure 128 mm[Hg] 128 mm[Hg] M DIAZ ([facility] Diastolic blood pressure 88 mm[Hg] 88 mm[Hg] [facility] ([facility] Body temperature 98.0 [degF] 98.0 [degF] [facility] ([facility] Heart rate 98 /min 98 /min [facility] ([facility] Respiratory rate 16 /min 16 /min [facility] ( [facility] Body height 62 [in_i] 62 [in_i] [facility] ([facility] 5'2" Body weight 174.00 [lb_av] 174.00 [lb_av] MEDEN T ([facility] [place] body weight 110 [lb_av] 110 [lb_av] MED[facility] T ([facility] Systolic blood pressure 152 mm[Hg] 152 mm[Hg] M DIAZ ([facility], ) Body height 62 [in_i] 62 [in_i] [facility] ([facility]) 5'2" Diastolic blood pressure 75 mm[Hg] 75 mm[Hg] [facility] ([facility]) Body weight 173.00 [lb_av] 173.00 [lb_av] MEDEN T ([facility]) Body mass index (BMI) [Ratio] 31.6 kg/m2 31.6 k g/m2 [facility] ([facility]) [place] body weight 110 [lb_av] 110 [lb_av] MEDEN T ([facility]) Body weight 78.473 kg 78.473 kg [facility] ([facility]) Body surface area Derived from formula 1.80 m2 1.80 m2 [facility] ([facility]) Systolic blood pressure 136 mm[Hg] 136 mm[Hg] M EDENT ([facility] Diastolic blood pressure 88 mm[Hg] 88 mm[Hg] [facility] ([facility] Body temperature 97.7 [degF] 97.7 [degF] [facility] ([facility] Heart rate 92 /min 92 /min [facility] ([facility] Respiratory rate 18 /min 18 /min [facility] ( [facility] Body height 62 [in_i] 62 [in_i] [facility] ([facility] 5'2" Body weight 168.00 [lb_av] 168.00 [lb_av] MEDEN T ([facility] [place] body weight 110 [lb_av] 110 [lb_av] MEDEN T ([facility] Body mass index (BMI) [Ratio] 30.7 kg/m2 30.7 k g/m2 [facility] ([facility] Oxygen saturation in Arterial blood by Pulse oximetry 98 % 98 % [facility] ([facility] Systolic blood pressure 136 mm[Hg] 136 mm[Hg] M EDENT ([facility] Diastolic blood pressure 86 mm[Hg] 86 mm[Hg] [facility] ([facility] Body temperature 97.7 [degF] 97.7 [degF] [facility] ([facility] Heart rate 98 /min 98 /min [facility] ([facility] Respiratory rate 18 /min 18 /min [facility] ( [facility] Body height 62 [in_i] 62 [in_i] [facility] ([facility] 5'2" Body weight 168.00 [lb_av] 168.00 [lb_av] MEDEN T ([facility] [place] body weight 110 [lb_av] 110 [lb_av] MEDEN T ([facility] Body mass index (BMI) [Ratio] 30.7 kg/m2 30.7 k g/m2 [facility] ([facility] Oxygen saturation in Arterial blood by Pulse oximetry 98 % 98 % [facility] ([facility] Body temperature 97.7 [degF] 97.7 [degF] [facility] ([facility] ) Respiratory rate 12 /min 12 /min [facility] ( [facility] ) Body weight 170.00 [lb_av] 170.00 [lb_av] MEDEN T ([facility] ) Body mass index (BMI) [Ratio] 31.1 kg/m2 31.1 k g/m2 [facility] ([facility] ) [place] body weight 110 [lb_av] 110 [lb_av] MEDEN T ([facility] ) Body height 62 [in_i] 62 [in_i] [facility] ([facility] ) 5'2" Systolic blood pressure 146 mm[Hg] 146 mm[Hg] M EDENT ([facility] Diastolic blood pressure 90 mm[Hg] 90 mm[Hg] [facility] ([facility] Body temperature 98.4 [degF] 98.4 [degF] [facility] ([facility] Heart rate 90 /min 90 /min [facility] ([facility] Respiratory rate 16 /min 16 /min [facility] ( [facility] Body height 62 [in_i] 62 [in_i] [facility] 5'2" Body weight 171.00 [lb_av] 171.00 [lb_av] MEDEN T ([facility] [place] body weight 110 [lb_av] 110 [lb_av] MEDEN T ([facility] Body mass index (BMI) [Ratio] 31.3 kg/m2 31.3 k g/m2 [facility] ([facility] Oxygen saturation in Arterial blood by Pulse oximetry 98 % 98 % [facility] ([facility] Body temperature 96.0 [degF] 96.0 [degF] [facility] ([facility]) Body mass index (BMI) [Ratio] 31.3 kg/m2 31.3 k g/m2 [facility] ([facility]) Body height 62 [in_i] 62 [in_i] [facility] ([facility]) 5'2" Body weight 171.00 [lb_av] 171.00 [lb_av] MEDEN T ([facility]) Systolic blood pressure 140 mm[Hg] 140 mm[Hg] M EDENT ([facility] Diastolic blood pressure 80 mm[Hg] 80 mm[Hg] [facility] ([facility] Body temperature 97.8 [degF] 97.8 [degF] [facility] ([facility] Body height 62 [in_i] 62 [in_i] [facility] ([facility] 5'2" Body weight 170.00 [lb_av] 170.00 [lb_av] MEDEN T ([facility] [place] body weight 110 [lb_av] 110 [lb_av] MEDEN T ([facility] Heart rate 85 /min 85 /min [facility] ([facility] Respiratory rate 17 /min 17 /min [facility] ( [facility] Body mass index (BMI) [Ratio] 31.1 kg/m2 31.1 k g/m2 [facility] ([facility] Oxygen saturation in Arterial blood by Pulse oximetry 98 % 98 % [facility] ([facility] ([place]), ([facility] [employer]) Systolic blood pressure 150 mm[Hg] 150 mm[Hg] M EDTORSTEN ([facility] Diastolic blood pressure 88 mm[Hg] 88 mm[Hg] MEDTORSTEN ([facility] Systolic blood pressure 130 mm[Hg] 130 mm[Hg] M EDTORSTEN ([facility] Diastolic blood pressure 82 mm[Hg] 82 mm[Hg] MED[facility]STEN ([facility] Body temperature 98.5 [degF] 98.5 [degF] MEDTORSTEN ([facility] Heart rate 96 /min 96 /min DWAYNE ([facility] Respiratory rate 18 /min 18 /min MEDTORSTEN ( [facility] Body height 62 [in_i] 62 [in_i] DWAYNE ([facility] 5'2" Body weight 173.00 [lb_av] 173.00 [lb_av] MEDEN T ([facility] [place] body weight 110 [lb_av] 110 [lb_av] MEDEN T ([facility] Body mass index (BMI) [Ratio] 31.6 kg/m2 31.6 k g/m2 MEDTORSTEN ([facility] Oxygen saturation in Arterial blood by Pulse oximetry 98 % 98 % DWAYNE ([facility]
[2021-06-04] MEDS ORDERED: LIDOCAINE 2% 100MG/5ML SDV (FOR ANES.) As Ordered ONE (11:20)
[2021-06-04] MEDS ORDERED: propofoL 200 MG/20 ML VIAL As Ordered ONE (11:20)
[2021-06-04] MEDS ORDERED: fentaNYL 100 MCG/2 ML INJECTION (J3010) As Ordered ONE (11:20)
[2021-06-04 12:50] VITALS: BP 162/85
--- NOTE | 2021-06-04 13:11 | ROOR ---
Patient Name: Meagan Dias Procedure Date: 06/04/2021 12:09 PM Date of : 1975 Age: 45 Room: [facility] Gender: Female Note Status: Finalized Procedure: Upper GI endoscopy Indications: Epigastric abdominal pain, Nausea Providers: Rogelio Gee MD Referring MD: MELI SPANN DO Requesting Provider: Medicines: Monitored Anesthesia Care Complications: No immediate complications. Procedure: Pre-Anesthesia Assessment: - The heart rate, respiratory rate, oxygen saturations, blood pressure, adequacy of pulmonary ventilation, and response to care were monitored throughout the procedure. The Endoscope was introduced through the mouth, and advanced to the second part of duodenum. The upper GI endoscopy was accomplished without difficulty. The patient tolerated the procedure well. Findings: Non-severe esophagitis was found at the gastroesophageal junction. A single small mucosal nodule was found at the gastroesophageal junction. Biopsies were taken with a cold forceps for histology. The entire examined stomach was normal. Biopsies were taken with a cold forceps for Helicobacter pylori testing. The examined duodenum was normal. Impression: - Mild esophagitis with mucosal nodularity found in the esophagus at GE junction. Biopsied. - Normal stomach. Biopsied. - Normal examined duodenum. Recommendation: - Use Prevacid (lansoprazole) 30 mg PO daily. - Telephone endoscopist for pathology results in 2 weeks. - Continue Dicyclomine 10-20 mg as needed for abdominal pain/nausea Procedure Code(s): --- Professional --- 07297, Esophagogastroduodenoscopy, flexible, transoral; with biopsy, single or multiple Diagnosis Code(s): --- Professional --- R11.0, Nausea R10.13, Epigastric pain K20.9, Esophagitis, unspecified K22.8, Other specified diseases of esophagus CPT copyright 2019 [employer]. All rights reserved. The codes documented in this report are preliminary and upon shell plater review may be revised to meet current compliance requirements. Rogelio Gee MD Rogelio Gee MD 06/04/2021 1:11:19 PM Electronically signed by Rogelio Gee MD Number of Addenda: 0 Note Initiated On: 06/04/2021 12:09 PM Estimated Blood Loss: Estimated blood loss: none.
== END 2021-06-04 13:14 | disposition home or self-care (01) ==
LOC: M OPP 11:06
PROVIDERS: ATTEND Internal Medicine Gastroenterology
DX: K20.90 Esophagitis, unspecified without bleeding (principal); K22.89 Other specified disease of esophagus; R10.13 Epigastric pain; R11.0 Nausea; Z80.0 Family history of malignant neoplasm of digestive organs; Z79.899 Other long term (current) drug therapy; Z87.891 Personal history of nicotine dependence
CPT/HCPCS: 43239; 88305; J3010

== ENCOUNTER → 2021-07-03 | Outpatient (CLI) | payer OTHER ==
[~2021-07-03] MED LIST changes: -NS 1,000 ML IV ONE
[2021-07-03 17:04] LABS: BASO % 0.6 % (0.0-1.0); EOS # 0.1 10^3/uL (0.0-0.5); EOS % 1.6 % (0.0-3.0); HEMATOCRIT 40.2 % (36.0-47.0); HEMOGLOBIN 13.2 g/dl (12.0-15.5); LYMPH # 1.8 10^3/uL (1.5-5.0); LYMPH % 26.4 % (24.0-44.0); MEAN CORPUSCULAR HEMOGLOBIN 28.3 pg (27.0-33.0); MEAN CORPUSCULAR HGB CONC 32.8 g/dl (32.0-36.5); MEAN CORPUSCULAR VOLUME 86.3 fl (80.0-96.0); MONO # 0.5 10^3/uL (0.0-0.8); MONO % 7.3 % (2.0-8.0); NEUTROPHILS # 4.3 10^3/uL (1.5-8.5); NEUTROPHILS % 63.7 % (36.0-66.0); PLATELET COUNT, AUTOMATED 321 10^3/uL (150-450); RED BLOOD COUNT 4.66 10^6/uL (4.00-5.40); WHITE BLOOD COUNT 6.8 10^3/uL (4.0-10.0)
[2021-07-03 17:31] LABS: ALBUMIN 3.8 GM/DL (3.2-5.2); ALT/SGPT 33 U/L (12-78); BILIRUBIN,TOTAL 0.5 MG/DL (0.2-1.0); BLOOD UREA NITROGEN 15 MG/DL (7-18); CALCIUM LEVEL 9.4 MG/DL (8.5-10.1); CARBON DIOXIDE LEVEL 29 MEQ/L (21-32); CHLORIDE LEVEL 105 MEQ/L (98-107); CHOLESTEROL LEVEL 236 MG/DL (<200); CREATININE FOR GFR 0.69 MG/DL (0.55-1.30); FREE T4 0.88 NG/DL (0.76-1.46); GLOMERULAR FILTRATION RATE > 60.0 (>58); GLUCOSE, FASTING 83 MG/DL (70-100); HDL CHOLESTEROL 46 MG/DL (>40); LDL CHOLESTEROL 123 MG/DL (<100); NON-HDL-C 190 MG/DL; POTASSIUM SERUM 4.6 MEQ/L (3.5-5.1); PTH INTACT 67.1 PG/ML (18.5-88.0); SODIUM LEVEL 139 MEQ/L (136-145); TOTAL PROTEIN 7.8 GM/DL (6.4-8.2); TRIGLYCERIDES LEVEL 335 MG/DL (<150)
[2021-07-03 17:40] LABS: HEMOGLOBIN A1c 5.5 %
== END ==
LOC: M PLALAB 15:41
PROVIDERS: ATTEND Physician Assistant Medical
DX: K21.9 Gastro-esophageal reflux disease without esophagitis (principal); E55.9 Vitamin D deficiency, unspecified; Z13.1 Encounter for screening for diabetes mellitus; Z13.220 Encounter for screening for lipoid disorders; E66.9 Obesity, unspecified

== ENCOUNTER 2021-07-25 18:10 | Emergency (ER) | payer OTHER ==
[~2021-07-25] VITALS: Ht 157.5 cm; Wt 81.4 kg
[2021-07-25] MEDS ORDERED: PERCOCET 5MG/325MG TAB PO ONE (18:20)
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
[2021-07-25 20:30] VITALS: BP 167/94
[2021-07-25] MEDS ORDERED: KETO10TAB PO (20:31)
== END 2021-07-25 21:06 | disposition home or self-care (01) ==
LOC: M ED 18:10
DX: S50.02XA Contusion of left elbow, initial encounter (principal); S40.012A Contusion of left shoulder, initial encounter; S70.02XA Contusion of left hip, initial encounter; M54.2 Cervicalgia; V49.40XA Driver injured in collision with unspecified motor vehicles in traffic accident, initial encounter; Z86.718 Personal history of other venous thrombosis and embolism; G43.909 Migraine, unspecified, not intractable, without status migrainosus; I10 Essential (primary) hypertension; Z87.891 Personal history of nicotine dependence; Z79.899 Other long term (current) drug therapy

== ENCOUNTER 2021-08-16 17:33 | Emergency (ER) | payer OTHER ==
[~2021-08-16] VITALS: Ht 157.5 cm; Wt 79.8 kg
[~2021-08-16 17:33] MED LIST changes: -CITA10TA5 PO; +CITA10TA7 PO; +KETO10TAB PO
[2021-08-16 20:48] VITALS: O2SAT 94
[2021-08-16 21:32] LABS: RSV AMPLIFICATION NEGATIVE (NEGATIVE)
[2021-08-16] MEDS ORDERED: MUCI600T31 PO (23:46)
[2021-08-16] MEDS ORDERED: BENZ200C70 PO (23:46)
[2021-08-16] MEDS ORDERED: VENTAER INH (23:46)
[2021-08-17 00:52] VITALS: BP 142/83
== END 2021-08-17 00:56 | disposition home or self-care (01) ==
LOC: M ED 17:33
DX: J06.9 Acute upper respiratory infection, unspecified (principal)